=== PATIENT | male | born 1965 | race Caucasian/White ===

== ENCOUNTER 2023-08-31 11:35 | Emergency (ER) | payer BC, SELFPAY ==
[2023-08-31] VITALS (7 sets, daily range): BP systolic 120–151; BP diastolic 62–86; PULSE 95–117; RESP 18–24; TEMP 37.1–39.5; O2SAT 92–96; BMI 42.1
--- NOTE | 2023-08-31 | ECG_ITS ---
Test Reason : SOB Blood Pressure : / mmHG Vent. Rate : 102 BPM Atrial Rate : 102 BPM P-R Int : 176 ms QRS Dur : 100 ms QT Int : 326 ms P-R-T Axes : 026 017 005 degrees QTc Int : 424 ms Sinus tachycardia Otherwise normal ECG No previous ECGs available Referred By: Generic ED Physician Electronically Signed By:Robert Mckinney
--- NOTE | ~2023-08-31 | XR_ITS ---
EXAMINATION: XR CHEST CLINICAL INFORMATION: Shortness of breath. COMPARISON: None available. TECHNIQUE: Frontal view of the chest was obtained. FINDINGS: The cardiomediastinal silhouette is within normal limits. There are patchy bilateral mid and lower lung field infiltrates. There are no significant pleural effusions. The bony structures and soft tissues are unremarkable. XR/XR chest 1V IMPRESSION: Patchy bilateral mid and lower lung field infiltrates. Suspect pneumonia.
[2023-08-31 12:16] LABS: Basophils Percent Auto 0.2 % (0-2); Hematocrit 37.3 % (42.0-52.0); Hemoglobin 12.8 g/dl (14.0-18.0); Imm Gran Abs Auto 0.07 X10*3/uL (0.00-0.03); Imm Gran Pct Auto 0.5 % (0.0-0.4); Lymphocytes Absolute Auto 0.5 X10*3/uL (1.2-4.9); Lymphocytes Percent Auto 3.7 % (20-40); MANUAL DIFF FLAG SCAN; Mean Corpuscular HGB Conc 34.3 g/dl (31.0-36.0); Mean Corpuscular Hemoglobin 31.3 pg (27.0-33.0); Mean Corpuscular Volume 91.2 fL (80.0-98.0); Monocytes Absolute Auto 0.7 X10*3/uL (0.1-1.2); Monocytes Percent Auto 4.7 % (2-11); Neutrophils Absolute Auto 13.2 x10*3/uL (2.0-8.3); Neutrophils Percent Auto 90.9 % (45-73); Platelet Count 184 X10*3/uL (160-400); Red Blood Count 4.09 X10*6/uL (4.60-5.80); Red Cell Distribution Width 13.1 % (11.0-16.0); SCAN SMEAR FLAG 1; White Blood Count 14.6 X10*3/uL (4.8-10.8)
[2023-08-31] MEDS: Ibuprofen 400 MG TABLET PO (12:20)
[2023-08-31] MEDS: Benzonatate 100 MG CAPSULE 200 MG PO (12:20)
[2023-08-31] MEDS: Acetaminophen 325 MG TABLET 975 MG PO (12:20)
--- NOTE | 2023-08-31 12:22 | PC.NURSE ---
medication administered per provider order. RT bedside assessing pt.
[2023-08-31 12:28] LABS: Alanine Aminotransferase 41 U/L (0-40); Alkaline Phosphatase 73 U/L (39-117); Anion Gap 12 (12-20); Aspartate Amino Transferase 25 U/L (5-37); Bilirubin Total 0.8 mg/dL (0.0-1.0); Blood Urea Nitrogen 16 mg/dL (9-16); Calcium 8.8 mg/dL (8.4-10.2); Carbon Dioxide 24 mmol/L (22-29); Chloride 105 mmol/L (96-108); Creatinine Clr Calc Pharmacy 135.1; Estimated Glomerular Filt Rate > 60; Glucose Fasting 110 mg/dL (60-99); Potassium 3.4 mmol/L (3.3-5.1); Sodium 138 mmol/L (135-145); Total Protein 6.7 g/dL (6.5-8.0)
[2023-08-31 12:33] LABS: SLIDE REVIEW VERIFIED
[2023-08-31] MEDS: Albuterol Sulfate 90 MCG 8 GM INHALER 4 PUFF INHALE (12:37)
--- NOTE | 2023-08-31 12:48 | ED_ITS ---
HPI - SOB/Dyspnea General Chief Complaint: Upper Respiratory Symptoms Stated Complaint: +COVID, DIFF BREATHING,H/O ASTHMA PER EMS Time Seen by Provider: 08/31/23 11:45 Source: patient Mode of arrival: EMS History of Present Illness HPI Narrative: 58-year-old male with mild asthma and positive sick contacts for COVID-19 states that his primary care provider prescribed him steroids on Tuesday and for the 1st couple of days it helped but thereafter he states that the cough is just become impossible, he is been using his inhaler multiple times without success, steroids are no longer working but have been completed and he just had significant shortness of breath with the cough to the point that he felt like he was unable to catch his breath. Related Data Allergies Allergy/AdvReac Type Severity Reaction Status Date / Time No Known Allergies Allergy Verified 08/31/23 11:49 Review of Systems 2 Review of Systems: Pertinent positives and negatives as stated in HPI PMFSH Past Medical History Source: nursing notes reviewed Social History Social History Smoked in Last 30 Days: No Use of substances other than those prescribed or required for medical reasons: No Advance Directives: No Advance Directives Information Provided: Yes Physical Exam 2 Vital Signs: Vital Signs: Last Vital Signs Temp 101.2 F H 08/31/23 14:17 Pulse 102 H 08/31/23 14:17 Resp 18 08/31/23 14:17 BP 120/62 08/31/23 14:17 Pulse Ox 95 08/31/23 14:17 O2 Del Method Room Air 08/31/23 14:17 BMI result Body Mass Index 42.1 VITAL SIGNS: Reviewed. GENERAL: Well developed, well nourished, in no acute distress. HEAD: Normocephalic/atraumatic EYES: PERRLA, EOMI EARS: Ext canals without abnormality NOSE: Nares patent bilateral OROPHARYNX: no oral lesions noted, posterior pharynx clear NECK: Supple, no adenopathy LUNGS: Decreased breath sounds bilaterally with noted expiratory wheeze/rales at right base, tachypnea and increased work of breathing noted. SpO2<94> CARDIOVASCULAR: Regular rate and rhythm without noted murmurs ABDOMEN: Soft, non-tender, non-distended with bowel sounds. MUSCULOSKELETAL: No tenderness, deformities, or effusions noted on gross inspection. EXTREMITIES: No cyanosis, clubbing or edema. SKIN: Inspection of the skin reveals no rashes, ulcerations, jaundice, pallor, or petechiae. NEUROLOGIC: Alert and oriented x 4. Strength and sensation to light touch were grossly intact x 4. Medications Administered Discontinued Medications Generic Name Dose Route Start Last Admin Trade Name Osminq PRN Reason Stop Dose Admin Acetaminophen 975 mg 08/31/23 12:00 08/31/23 12:20 Acetaminophen 325 Mg Tablet PO 08/31/23 12:01 975 mg ONCE ONE Administration Albuterol Sulfate 4 puff 08/31/23 12:30 08/31/23 12:37 Albuterol Sulfate 90 Mcg 8 Gm Inhaler INHALE 08/31/23 12:31 4 puff ONCE ONE Administration Benzonatate 200 mg 08/31/23 12:00 08/31/23 12:20 Benzonatate 100 Mg Capsule PO 08/31/23 12:01 200 mg ONCE ONE Administration Guaifenesin/Codeine Phosphate 5 ml 08/31/23 12:45 08/31/23 13:11 Guaifen/Codeine Sf 200/20/10ml 10 Ml Liquid PO 08/31/23 12:46 5 ml ONCE ONE Administration Magnesium Sulfate 2 gm in 50 mls @ 150 mls/hr 08/31/23 12:51 08/31/23 13:35 Magnesium Sulfate/H2o IV 08/31/23 13:10 Infused ONCE ONE Infusion Ibuprofen 400 mg 08/31/23 12:00 08/31/23 12:20 Ibuprofen 400 Mg Tablet PO 08/31/23 12:01 400 mg ONCE ONE Administration Methylprednisolone Sodium Succinate 125 mg 08/31/23 12:51 08/31/23 13:11 Methylprednisolone Sod Succ 125 Mg/2 Ml Vial IVPUSH 08/31/23 12:52 125 mg ONCE ONE Administration Medical Decision Making Medical Decision Making MDM Narrative: 58-year-old male with history and clinical presentation, DDX: Viral syndrome/COVID-19 positive, will rule out concomitant viral infections of RSV in influenza. It is my opinion that this has also led to acute asthma exacerbation. INTERVENTION: E.d. bronch, steroids, magnesium, cough suppressant, patient noted to be febrile and this is secondary to viral infection and was treated with Tylenol/ibuprofen. I reviewed all investigations and although there is a noted leukocytosis this is likely a combination of non- infectious etiology with stress/steroid use. Otherwise, patient has a normocytic anemia but there is no history or clinical findings to suggest active bleeding, no thrombocytopenia. Chemistry indices do not demonstrate an PITER and there is no electrolyte or significant liver enzyme derangements. Viral testing only demonstrates COVID-19 and otherwise influenza/RSV are negative. Chest x-ray demonstrates patchy bilateral infiltrates that are consistent with COVID-19 pneumonia. D-dimer is not elevated. On re-evaluation patient is feeling much better, elevated temperature has resolved, he continues to oxygenating at 94-95% on room air. He is otherwise discharged home with expectant treatment and instructions for symptomatic treatment. Residual tachycardia secondary to nebulized treatments. Differential Diagnosis Differential Diagnoses: The differential diagnosis associated with the presentation includes Please see the discussion above Admission/Observation Consideration of admission/observation: Escalation of care including admission/observation considered Please see the discussion above Lab Data MDM Lab Attestation statement: I reviewed the patient's lab results. Please see the discussion above 08/31/23 12:09 08/31/23 12:09 Labs: Lab Results 08/31/23 08/31/23 08/31/23 Range/Units 12:09 12:55 14:46 WBC 14.6 H (4.8-10.8) X10*3/uL RBC 4.09 L (4.60-5.80) X10*6/uL Hgb 12.8 L (14.0-18.0) g/dl Hct 37.3 L (42.0-52.0) % MCV 91.2 (80.0-98.0) fL MCH 31.3 (27.0-33.0) pg MCHC 34.3 (31.0-36.0) g/dl RDW 13.1 (11.0-16.0) % Plt Count 184 (160-400) X10*3/uL MPV 10.0 (9.4-12.4) fL Immature Gran % (Auto) 0.5 H (0.0-0.4) % Neut % (Auto) 90.9 H (45-73) % Lymph % (Auto) 3.7 L (20-40) % Reeves % (Auto) 4.7 (2-11) % Eos % (Auto) 0.0 (0-4) % Baso % (Auto) 0.2 (0-2) % Lymph # (Auto) 0.5 L (1.2-4.9) X10*3/uL Reeves # (Auto) 0.7 (0.1-1.2) X10*3/uL Eos # (Auto) 0.0 (0.0-0.4) X10*3/uL Baso # (Auto) 0.0 (0.0-0.2) X10*3/uL Abs Immat Gran (auto) 0.07 H (0.00-0.03) X10*3/uL Absolute Neuts (auto) 13.2 H (2.0-8.3) x10*3/uL Absolute Nucleated RBC 0.000 (0.0-0.012) X10*3/uL Nucleated RBC % (auto) 0.0 (0.0-0.2) /100WBC Smear Tech's Comments VERIFIED D-Dimer High Sensitivty 179 NG/ML Sodium 138 (135-145) mmol/L Potassium 3.4 (3.3-5.1) mmol/L Chloride 105 (96-108) mmol/L Carbon Dioxide 24 (22-29) mmol/L Anion Gap 12 (12-20) BUN 16 (9-16) mg/dL Creatinine 0.76 (0.5-1.4) mg/dL Estim Creat Clear Calc 135.1 Estimated GFR > 60 Fasting Glucose 110 H (60-99) mg/dL Lactic Acid 0.7 (0.5-2.0) mmol/L Calcium 8.8 (8.4-10.2) mg/dL Total Bilirubin 0.8 (0.0-1.0) mg/dL AST 25 (5-37) U/L ALT 41 H (0-40) U/L Alkaline Phosphatase 73 (39-117) U/L B-Natriuretic Peptide 31 (<100) pg/mL Total Protein 6.7 (6.5-8.0) g/dL Albumin 4.0 (3.5-5.0) g/dL Influenza Type A (PCR) NEGATIVE (Negative) Influenza Type B (PCR) NEGATIVE (Negative) RSV RNA Qual (PCR) NEGATIVE (Negative) SARS-CoV-2 RNA (RT-PCR) POSITIVE A (Negative) Independent Interpretation I performed an independent interpretation of an: EKG Interpretation: Sinus tachycardia, HR-102, no STEMI, MS/QRS/QTC is within normal limits. Radiology Impression Discussion of test interpretation with radiology: I have reviewed the radiologist's reading. Radiologist Impression: Please see the discussion above Chronic Conditions Patient?s care impacted by: Other Asthma Critical Care Time Critical Care Time Critical Care Time: Yes Total Critical Care Time: 45 Attestation: I personally attest to this time spent taking care of the patient. Discharge Plan Discharge Clinical Impression: Viral syndrome, Asthma exacerbation, COVID-19 virus infection Patient Disposition: Home, Self-Care Instructions: Asthma (ED), Viral Syndrome (ED), COVID-19 (Coronavirus Disease 2019) (ED) Additional Instructions: Continue to isolate, continue to take Tylenol/ibuprofen as needed for body aches and temperatures, continue to drink plenty of fluids. Return to the ER for any worsening symptoms.
[2023-08-31 12:51] LABS: Influenza A PCR NEGATIVE (Negative); Influenza B PCR NEGATIVE (Negative); Resp Syncy Virus RNA Qual PCR NEGATIVE (Negative); SARS COV2 PCR INHOUSE POSITIVE (Negative)
[2023-08-31] MEDS: Magnesium Sulfate/H2O 2 GM/50 ML PIGGYBACK IV (13:11)
[2023-08-31] MEDS: methylPREDNISolone Sod Succ 125 MG/2 ML VIAL IVPUSH (13:11)
[2023-08-31] MEDS: guaiFEN/Codeine SF 200/20/10ML 10 ML LIQUID 5 ML PO (13:11)
[2023-08-31 13:13] LABS: Lactic Acid 0.7 mmol/L (0.5-2.0)
[2023-08-31 13:54] LABS: B Type Natriuretic Peptide 31 pg/mL (<100)
[2023-08-31 14:58] LABS: D Dimer High Sensitivity 179 NG/ML
== END 2023-08-31 16:22 | disposition home or self-care (01) ==
PROVIDERS: Emergency Provider Student in an Organized Health Care Education/Training Program
DX: U07.1 COVID-19 (principal); J45.901 Unspecified asthma with (acute) exacerbation; R06.02 Shortness of breath
CPT/HCPCS: 0241U; 36415; 71045; 80053; 83605; 83880; 85025; 85379; 87040; 93005; 94640; 94664; 96365; 96375; 99284; 99285; J2930; J3475

== ENCOUNTER → 2023-08-31 11:55 | Outpatient (BNV) | payer BC, SELFPAY | PROVIDERS: Emergency Provider Student in an Organized Health Care Education/Training Program; Visit Provider Internal Medicine Cardiovascular Disease | DX: R00.0 Tachycardia, unspecified (principal) | CPT/HCPCS: 93010 ==

== ENCOUNTER 2023-09-01 23:02 | Inpatient (IN) | payer BC, SELFPAY ==
--- NOTE | 2023-09-01 | ECG_ITS ---
Test Reason : CHEST PAIN Blood Pressure : / mmHG Vent. Rate : 114 BPM Atrial Rate : 114 BPM P-R Int : 172 ms QRS Dur : 096 ms QT Int : 296 ms P-R-T Axes : 036 034 -08 degrees QTc Int : 407 ms Sinus tachycardia Possible Left atrial enlargement Borderline ECG When compared with ECG of 31-AUG-2023 11:55, No significant change was found Referred By: Generic ED Physician Electronically Signed By:Robert Mckinney
--- NOTE | ~2023-09-01 | XR_ITS ---
EXAMINATION: XR CHEST CLINICAL INFORMATION: Dyspnea COMPARISON: Previous day TECHNIQUE: Frontal view of the chest was obtained. FINDINGS: Slightly increasing diffuse bilateral patchy airspace opacities bronchial wall thickening. No pleural effusion or pneumothorax. Normal heart size. Pulmonary venous congestion without overt edema. Acute osseous abnormalities. XR/XR chest 1V IMPRESSION: Slightly increasing diffuse bilateral patchy airspace opacities and bronchial wall thickening, most compatible with atypical/viral pneumonia
--- NOTE | ~2023-09-01 | XR_ITS ---
EXAMINATION: XR CHEST CLINICAL INFORMATION: Hypoxia. COMPARISON: Multiple priors, most recent CTA chest dated 09/03/2023. TECHNIQUE: Frontal view of the chest was obtained. FINDINGS: Diffuse, patchy bilateral airspace opacities as seen on the prior examinations. Findings appear slightly increased when compared to the radiographs dated 08/31/2023 and similar when compared to the most recent CT chest dated 09/03/2023. No pleural effusion or pneumothorax. Stable cardiomediastinal silhouette. No acute osseous abnormality. XR/XR chest 1V IMPRESSION: Diffuse, patchy bilateral airspace opacities, slightly increased when compared to the radiographs dated 08/31/2023 and similar when compared to the most recent CT chest dated 09/03/2023. Findings are consistent with the patient's known history of Covid pneumonia.
--- NOTE | ~2023-09-01 | CT_ITS ---
EXAMINATION: CT ANGIOGRAM OF THE CHEST WITH AND WITHOUT CONTRAST (CT PULMONARY ANGIOGRAM FOR PE) CLINICAL INFORMATION: Reason for Exam Acute hypoxia COVID 19 positive. COMPARISON: CTA of the chest done yesterday. TECHNIQUE: Prior to contrast administration, noncontrast localization images were obtained. Subsequently, multidetector volumetric imaging was performed from the thoracic inlet to below the diaphragms following the administration of 65 mL Omnipaque 350 intravenous contrast. No contrast reaction reported Sagittal, coronal, and MIP oblique sagittal reformatted images were obtained on the CT workstation, uploaded to PACS, and reviewed. This CT examination was performed using dose optimization techniques as appropriate, variously including the following: *Automated exposure control *Adjustment of mA and/or kV according to patient size (this includes techniques or standardized protocols for targeted exams where dose is matched to indication/reason for exam; i.e. extremities or head) *Use of iterative reconstruction technique Total exam dose-length product 508 mGy-cm FINDINGS: QUALITY OF STUDY/CONTRAST BOLUS: Satisfactory. PULMONARY ARTERIES: Similar to yesterday's study, evaluation is technically limited due to motion artifacts. No definite large central pulmonary thromboembolism. Evaluation of the lobar as well as segmental pulmonary arteries is technically limited, similar to prior study done yesterday. THORACIC AORTA: No aneurysm. LUNG: Extensive multilobar groundglass airspace disease is present bilaterally, shows interval progression since prior study, most consistent with clinically known COVID pneumonia. PLEURA: No pleural effusion or pneumothorax. MEDIASTINUM: Normal heart size. No pericardial effusion. No hilar or mediastinal lymphadenopathy. No evidence of septal bowing or right heart strain. CORONARY ARTERY CALCIFICATION: None visualized on this study. CHEST WALL/AXILLA: No axillary or internal mammary lymphadenopathy. OSSEOUS STRUCTURES: No acute or suspicious osseous abnormality. UPPER ABDOMEN: Reidentified hypodense circumscribed 2.5 cm right adrenal mass, not optimally characterized on this postcontrast study. No reflux of contrast into the hepatic veins to suggest elevated right heart pressures. CT/CT angio chest PE protocol IMPRESSION: 1. Interval progression of previously documented bilateral multilobar groundglass airspace opacities in this patient with clinically known COVID pneumonia since the CT of the chest done yesterday. 2. Evaluation for pulmonary thromboembolism is again technically limited due to motion artifacts. No evidence of any large central thromboembolism, unchanged. 3. 2.5 cm indeterminate well-circumscribed hypodense right adrenal mass. VTE: Negative.
--- NOTE | ~2023-09-01 | CT_ITS ---
EXAMINATION: CT ANGIOGRAM OF THE CHEST WITH AND WITHOUT CONTRAST (CT PULMONARY ANGIOGRAM FOR PE) CLINICAL INFORMATION: Reason for Exam VARMA; Tachycardia hypoxemia in setting of COVID-19 COMPARISON: None available. TECHNIQUE: Prior to contrast administration, noncontrast localization images were obtained. Subsequently, multidetector volumetric imaging was performed from the thoracic inlet to below the diaphragms following the administration of 65 mL Omnipaque 350 intravenous contrast. No contrast reaction reported Sagittal, coronal, and MIP oblique sagittal reformatted images were obtained on the CT workstation, uploaded to PACS, and reviewed. This CT examination was performed using dose optimization techniques as appropriate, variously including the following: *Automated exposure control *Adjustment of mA and/or kV according to patient size (this includes techniques or standardized protocols for targeted exams where dose is matched to indication/reason for exam; i.e. extremities or head) *Use of iterative reconstruction technique Total exam dose-length product 511 mGy-cm FINDINGS: QUALITY OF STUDY/CONTRAST BOLUS: Satisfactory. PULMONARY ARTERIES: Limited assessment, particularly of the lower lungs due to respiratory motion artifact. No pulmonary emboli. THORACIC AORTA: No aneurysm. LUNG: Bilateral peripherally predominant patchy groundglass opacities. PLEURA: No pleural effusion or pneumothorax. MEDIASTINUM: Normal heart size. No pericardial effusion. No hilar or mediastinal lymphadenopathy. Shotty mediastinal lymph nodes are reactive. No evidence of septal bowing or right heart strain. CORONARY ARTERY CALCIFICATION: None visualized on this study. CHEST WALL/AXILLA: No axillary or internal mammary lymphadenopathy. OSSEOUS STRUCTURES: No acute or suspicious osseous abnormality. UPPER ABDOMEN: There is a 2.3 x 1.9 cm right adrenal nodule measuring 13 Hounsfield units on this postcontrast image acquisition. Normal left adrenal gland. CT/CT angio chest PE protocol IMPRESSION: * No pulmonary embolism. * Bilateral peripherally predominant patchy groundglass opacities. This is a commonly reported imaging appearance for COVID-19, however other viral pneumonitides can also have this appearance. * Incidental 2.3 cm right adrenal nodule which measures 13 HU on this post-contrast exam. 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 VTE: negative.
--- NOTE | ~2023-09-01 | XR_ITS ---
EXAMINATION: XR CHEST CLINICAL INFORMATION: Shortness of breath COMPARISON: 09/08/2023 TECHNIQUE: Frontal view of the chest was obtained. FINDINGS: Heart size normal. Again noted are multiple focal airspace opacities throughout both lungs with some relative sparing of the apices. When compared to the prior study findings may be minimally worse. No pleural effusions. No evidence of CHF. Bony thorax is unremarkable. XR/XR chest 1V IMPRESSION: Multifocal airspace opacities, slightly worse when compared to the prior study.
[2023-09-01 23:04] VITALS: BP 154/85; PULSE 126; RESP 26; TEMP 38.8; O2SAT 95; BMI 35.9
[2023-09-01 23:49] VITALS: BP 145/84; PULSE 123; RESP 24; O2SAT 92
[2023-09-02] VITALS (14 sets, daily range): BP systolic 137–164; BP diastolic 77–94; PULSE 69–126; RESP 16–28; TEMP 36.4–37.6; O2SAT 87–98; BMI 39.2
--- NOTE | 2023-09-02 00:13 | ED.SOB ---
HPI - SOB/Dyspnea General Chief Complaint: Dyspnea Stated Complaint: chest pain , covid+ Time Seen by Provider: 09/02/23 00:00 Source: patient Mode of arrival: ambulatory Limitations: no limitations History of Present Illness HPI Narrative: Patient comes to the emergency room complaining of cough, chest pain from coughing. Patient was diagnosed with COVID approximately 1 week ago, patient states that he has a gradually getting worse, his breathing is more difficult. Patient was seen here yesterday, given nebulization treatments. Patient states that he was feeling better initially but morning he got home, the shortness of breath reoccurred. Related Data Allergies Allergy/AdvReac Type Severity Reaction Status Date / Time No Known Allergies Allergy Verified 09/01/23 23:08 Review of Systems Review of Systems: Constitutional : No Weight loss, No Fever, No Chills, No Night Sweats, No Fatigue, No Malaise ENT/Mouth : No Hearing loss, No Ear Pain, No Nasal Congestion, No Sinus Pain, No Hoarseness, No sore throat, No Rhinorrhea, No Swallowing Difficulty Eyes: No Eye Pain, No Swelling, No Redness, No Foreign Body, No Discharge, No Vision Changes Cardiovascular : No Chest Pain, No SOB, No Orthopnea, No Edema, No Palpitations Respiratory : Complaining of dry cough, complaining of wheezing, No Smoke Exposure, shortness of breath worthless with exertion Gastrointestinal : No Nausea, No Vomiting, No Diarrhea, No Constipation, No abdominal Pain, No Hematochezia, No Melena Genitourinary : no irregular bleeding, No Dysuria, No Urinary Frequency, No Hematuria, No Urinary Incontinence, No Urgency, No Flank Pain, No Urinary Flow Changes, No Hesitancy Musculoskeletal : No joint pain, No Myalgias, No Joint Swelling Skin : No Skin Lesions, No rash Neuro : No Weakness, No Numbness, No Paresthesias, No Loss of Consciousness, No Dizziness, No Headache Psych : No Anxiety/Panic, No Depression, No SI/HI/AH/VH, No Social Issues, Heme/Lymph: No Bruising, No Bleeding,No Lymphadenopathy Endocrine : No Polyuria, No Polydipsia, No Temperature Intolerance PMFSH Past Medical History Medical History (Updated 09/02/23 @ 01:36 by Silvia Contreras MD) Asthma Social History Social History Smoked in Last 30 Days: No Use of substances other than those prescribed or required for medical reasons: No Advance Directives: No Advance Directives Information Provided: Yes Physical Exam Vital Signs: Vital Signs: Last Vital Signs Temp 101.9 F H 09/01/23 23:04 Pulse 126 H 09/02/23 00:54 Resp 28 H 09/02/23 00:54 BP 145/84 H 09/01/23 23:49 Pulse Ox 88 L 09/02/23 00:13 O2 Del Method Nasal Cannula 09/01/23 23:49 O2 Flow Rate 3 09/01/23 23:49 BMI result Body Mass Index 35.9 Const: Other: Appearance: Alert. Oriented X3. Anxious Eyes: Pupils equal, round and reactive to light. ENT: Pharynx normal. Neck: Normal inspection. Neck supple. No lymph nodes noted. No crepitus CVS: Normal heart rate and rhythm. Pulses normal. Normal S1 and S2 Respiratory: Actively coughing, mildly tachypneic 24-26, no wheezing, normal air movement Abdomen: Soft and nontender. No rigidity. No distention. Skin: Skin warm and dry. Normal skin color. Normal skin turgor. Extremities: No lower extremity edema. No Lacerations. No Rash Neuro: Oriented X 3. No motor deficit. No sensory deficit. Moving all extremities. No slurred speech. CN 2 through 12 grossly intact Psych: calm, cooperative, anxious Course Course Course Narrative: -patient was walked around his room, oxygen saturation dropped to 88% -all of patient's labs and imaging pending -patient receiving IV fluids, IV Decadron and p.o. guaifenesin with codeine Medications Administered Discontinued Medications Generic Name Dose Route Start Last Admin Trade Name Freq PRN Reason Stop Dose Admin Dexamethasone Sodium Phosphate 6 mg 09/02/23 00:12 09/02/23 00:33 Dexamethasone Sod Phosphate 4 Mg/Ml Vial IVPUSH 09/02/23 00:13 6 mg ONCE ONE Administration Guaifenesin/Codeine Phosphate 10 ml 09/02/23 00:12 09/02/23 00:33 Guaifen/Codeine Sf 200/20/10ml 10 Ml Liquid PO 09/02/23 00:13 10 ml ONCE ONE Administration Sodium Chloride 1,000 mls @ 999 mls/hr 09/02/23 00:16 09/02/23 00:36 Ns IVCONT 09/02/23 01:16 999 mls/hr .Q1H1M ONE Administration Medical Decision Making Medical Decision Making [facility] Narrative: -my interpretation of labs: Patient's white blood cell count is elevated, 21, likely due to reactive leukocytosis versus pneumonia versus steroids. Lactic acid within normal limits. -patient's blood pressure elevated, patient tachycardic likely secondary to fever. Sepsis is not suspect -my interpretation of chest x-ray: Possible atypical pneumonia -patient was giving IV fluids, empirically treated with IV antibiotics, Decadron -patient's oxygen saturation dropped to 88% on room air, now in 2-3 L nasal cannula -I discussed the patient with Dr. Todd, pt being admitted Differential Diagnosis Differential Diagnoses: The differential diagnosis associated with the presentation includes (COVID, influenza, pneumonia) Admission/Observation Consideration of admission/observation: Escalation of care including admission/observation considered Consult Healthcare Provider Management of the patient was discussed with: Hospitalist Lab Data [facility] Lab Attestation statement: I reviewed the patient's lab results. 09/02/23 00:23 09/02/23 00:23 Labs: Lab Results 09/02/23 09/02/23 09/02/23 Range/Units 00:22 00:23 00:32 WBC 21.7 H (4.8-10.8) X10*3/uL RBC 4.14 L (4.60-5.80) X10*6/uL Hgb 12.9 L (14.0-18.0) g/dl Hct 38.4 L (42.0-52.0) % MCV 92.8 (80.0-98.0) fL MCH 31.2 (27.0-33.0) pg MCHC 33.6 (31.0-36.0) g/dl RDW 13.5 (11.0-16.0) % Plt Count 245 D (160-400) X10*3/uL MPV 10.4 (9.4-12.4) fL Immature Gran % (Auto) 0.9 H (0.0-0.4) % Neut % (Auto) 91.5 H (45-73) % Lymph % (Auto) 2.4 L (20-40) % [place] % (Auto) 5.1 (2-11) % Eos % (Auto) 0.0 (0-4) % Baso % (Auto) 0.1 (0-2) % Lymph # (Auto) 0.5 L (1.2-4.9) X10*3/uL [place] # (Auto) 1.1 (0.1-1.2) X10*3/uL Eos # (Auto) 0.0 (0.0-0.4) X10*3/uL Baso # (Auto) 0.0 (0.0-0.2) X10*3/uL Abs Immat Gran (auto) 0.20 H (0.00-0.03) X10*3/uL Absolute Neuts (auto) 19.8 H (2.0-8.3) x10*3/uL Absolute Nucleated RBC 0.000 (0.0-0.012) X10*3/uL Nucleated RBC % (auto) 0.0 (0.0-0.2) /100WBC Smear Tech's Comments VERIFIED PT 11.9 (11.1-13.3) SEC INR 1.0 (0.9-1.1) VBG pH 7.45 H (7.32-7.43) VBG pCO2 38 mmHg VBG pO2 60 mmHg VBG HCO3 27 H (22-26) mmol/L VBG O2 Saturation 89.0 % VBG Base Excess 3.5 mmol/L Sodium 138 (135-145) mmol/L Potassium 3.5 (3.3-5.1) mmol/L Chloride 104 (96-108) mmol/L Carbon Dioxide 25 (22-29) mmol/L Anion Gap 13 (12-20) BUN 25 H (9-16) mg/dL Creatinine 0.99 (0.5-1.4) mg/dL Estim Creat Clear Calc 101.3 Estimated GFR > 60 Random Glucose 131 H (60-115) mg/dL Lactic Acid 0.8 (0.5-2.0) mmol/L Calcium 9.3 (8.4-10.2) mg/dL Total Bilirubin 0.5 (0.0-1.0) mg/dL Direct Bilirubin 0.3 (0.0-0.5) mg/dL AST 52 H (5-37) U/L ALT 73 H (0-40) U/L Alkaline Phosphatase 95 (39-117) U/L Troponin I High Sens 13.3 (<3.5-35.0) ng/L B-Natriuretic Peptide 31 (<100) pg/mL Total Protein 7.2 (6.5-8.0) g/dL Albumin 4.1 (3.5-5.0) g/dL COVID-19 (ABDELRAHMAN) Positive A (Negative) COVID-19 Clin Com See Note Influenza Type A (GEOFF) Negative (Negative) Influenza Type B (GEOFF) Negative (Negative) Influenza A & B Note See Note Independent Interpretation I performed an independent interpretation of an: EKG (Interpretation of EKG: Sinus tachycardia, heart rate 114, nonspecific T-wave inversion in lead 3, no ST segment depression elevation, QTC 407) and Plain X-Ray Radiology Impression Discussion of test interpretation with radiology: I have reviewed the radiologist's reading. Radiologist Impression: FINDINGS: Slightly increasing diffuse bilateral patchy airspace opacities bronchial wall thickening. No pleural effusion or pneumothorax. Normal heart size. Pulmonary venous congestion without overt edema. Acute osseous abnormalities. XR/XR chest 1V IMPRESSION: Slightly increasing diffuse bilateral patchy airspace opacities and bronchial wall thickening, most compatible with atypical/viral pneumonia External Record Review External record reviewed: Prior outpatient labs Critical Care Time Critical Care Time Critical Care Time: Yes Total Critical Care Time: 75 Attestation: I have personally provided critical care time. Time includes review of lab data, radiology results, discussion with consultants, and monitoring for potential decompensation. Intervention performed as documented. Discharge Plan Discharge Clinical Impression: COVID-19 virus infection, Pneumonia Patient Disposition: Admitted As Inpatient
[2023-09-02] MEDS: guaiFEN/Codeine SF 200/20/10ML 10 ML LIQUID PO ×2 (00:33→06:52)
[2023-09-02] MEDS: dexAMETHasone sod phosphate 4 MG/ML VIAL 6 MG IVPUSH (00:33)
[2023-09-02 00:34] LABS: Basophils Percent Auto 0.1 % (0-2); Hematocrit 38.4 % (42.0-52.0); Hemoglobin 12.9 g/dl (14.0-18.0); Imm Gran Pct Auto 0.9 % (0.0-0.4); Lymphocytes Absolute Auto 0.5 X10*3/uL (1.2-4.9); Lymphocytes Percent Auto 2.4 % (20-40); MANUAL DIFF FLAG SCAN; Mean Corpuscular HGB Conc 33.6 g/dl (31.0-36.0); Mean Corpuscular Hemoglobin 31.2 pg (27.0-33.0); Mean Corpuscular Volume 92.8 fL (80.0-98.0); Mean Platelet Volume 10.4 fL (9.4-12.4); Monocytes Absolute Auto 1.1 X10*3/uL (0.1-1.2); Monocytes Percent Auto 5.1 % (2-11); Neutrophils Absolute Auto 19.8 x10*3/uL (2.0-8.3); Neutrophils Percent Auto 91.5 % (45-73); Platelet Count 245 X10*3/uL (160-400); Red Blood Count 4.14 X10*6/uL (4.60-5.80); Red Cell Distribution Width 13.5 % (11.0-16.0); SCAN SMEAR FLAG 1; White Blood Count 21.7 X10*3/uL (4.8-10.8)
[2023-09-02] MEDS: 0.9 % Sodium Chloride 1,000 ML 999 ML IVCONT (00:36)
[2023-09-02 00:38] LABS: Venous Blood Gas Refer to POC result
[2023-09-02 00:39] LABS: VBG Base Excess 3.5 mmol/L; VBG HCO3 27 mmol/L (22-26); VBG pCO2 38 mmHg; VBG pH 7.45 (7.32-7.43); VBG pO2 60 mmHg
[2023-09-02 00:43] LABS: Prothrombin Time 11.9 SEC (11.1-13.3)
[2023-09-02 00:43] LABS: COVID-19 Test Positive (Negative); IDNOW Serial# BCCEAD1C
[2023-09-02 00:45] LABS: Lactic Acid 0.8 mmol/L (0.5-2.0)
[2023-09-02 00:50] LABS: Alanine Aminotransferase 73 U/L (0-40); Albumin Level 4.1 g/dL (3.5-5.0); Alkaline Phosphatase 95 U/L (39-117); Anion Gap 13 (12-20); Aspartate Amino Transferase 52 U/L (5-37); Bilirubin Direct 0.3 mg/dL (0.0-0.5); Bilirubin Total 0.5 mg/dL (0.0-1.0); Blood Urea Nitrogen 25 mg/dL (9-16); Calcium 9.3 mg/dL (8.4-10.2); Carbon Dioxide 25 mmol/L (22-29); Chloride 104 mmol/L (96-108); Creatinine Clr Calc Pharmacy 101.3; Estimated Glomerular Filt Rate > 60; Glucose Random 131 mg/dL (60-115); Potassium 3.5 mmol/L (3.3-5.1); Sodium 138 mmol/L (135-145); Total Protein 7.2 g/dL (6.5-8.0)
--- NOTE | 2023-09-02 00:51 | PC.NURSE ---
pt came in from waiting room reporting dyspnea; previously covid+. pt reports worsening cough/sob hx asthma. sats 92% on RA upon arrival to room 2L NC o2 given sats up to 96%. ambulatory o2 trial with Dr. Contreras at bedside on RA sats 88-90%. pt reports cp with inspiration/cough. sinus tachy on monitor 126 bpm. afebrile. iv established. labs/nasal swabs done. pt medicated per nov. ivf infusing. iso precautions in place. call shrestha within reach.
[2023-09-02 00:54] LABS: SLIDE REVIEW VERIFIED
[2023-09-02 00:56] LABS: B Type Natriuretic Peptide 31 pg/mL (<100); IDNOW Serial# 08D9AD1C; Influenza A Negative (Negative); Influenza B2 Negative (Negative)
[2023-09-02 00:56] LABS: Troponin-I High Sensitivity 13.3 ng/L (<3.5-35.0)
[2023-09-02 01:50] LABS: D Dimer High Sensitivity 234 NG/ML
[2023-09-02] MEDS: cefTRIAXone sodium 1 GM in 0.9 % Sodium Chloride 50 ML IV (01:52)
[2023-09-02] MEDS: ondansetron HCL 4 MG/2 ML VIAL IVPUSH ×2 (01:52→20:55)
[2023-09-02 01:55] LABS: C Reactive Protein 27.04 mg/dL (< or = 0.50); Magnesium 2.2 mg/dL (1.6-2.6); Phosphorus 2.2 mg/dL (2.7-4.5)
[2023-09-02] MEDS: Azithromycin 500 MG in 0.9 % Sodium Chloride 250 ML 125 MG IV (02:42)
[2023-09-02] MEDS: iohexoL 350 MG/ML 100 ML INFUS..BTL 85 ML IV (03:34)
[2023-09-02] MEDS: Enoxaparin Sodium 40 MG/0.4 ML SYRINGE SUBCUT ×2 (03:44→20:11)
[2023-09-02] MEDS: methylPREDNISolone Sod Succ 40 MG/ML VIAL IVPUSH ×3 (03:44→20:10)
[2023-09-02 03:50] LABS: Appearance Urine Clear; Color Urine Yellow; Glucose Urine UA Negative (Negative); Leukocyte Esterase Urine Negative (Negative); Nitrite Urine Negative (Negative); Specific Gravity - Urine 1.025 (1.005-1.025); UMIC TRIGGER UACC YES; Urine Blood Moderate (2+) (Negative); Urine Ketones Negative (Negative); Urine Protein 100 (2+) mg/dL (Neg-Trace)
[2023-09-02 03:53] LABS: Bacteria Urine None Seen (None Seen); Hyaline Casts Urine 0-2 /LPF (0-2); Squamous Epithelial Cell Urine 0-2 /HPF (0-2); WBC Urine 0-5 /HPF (0-5)
--- NOTE | 2023-09-02 03:56 | PC.NURSE ---
afebrile. pt reports nausea had vomiting episode. pt relates to robitussin states benzonatate works better for his cough as well. Dr. Todd notified.
--- NOTE | 2023-09-02 04:04 | P.HPHOSP_ITS ---
History of Present Illness Date of Service: 09/02/23 Attending physician on admission: Edouard Todd Chief Complaint: Worsening shortness of breath, cough, fevers & chills x1 week Patient is a 58 year old obese (BMI 35.9) white male with underlying medical history of mild asthma and recent diagnosis of COVID-19 virus infection (he is vaccinated) presents to the emergency room complaining of worsening productive cough, chest pain, fevers, chills and shortness of breath that is worse with exertion. He was diagnosed with COVID-19 infection about a week ago at the onset of his symptoms and saw his PCP who prescribed 5 days of steroids that he completed with transient improvement in his condition. He was seen in the emergency room last night and was treated with steroids and albuterol updrafts with improvement in his condition and so was discharged home from the ER. However, his symptoms recurred today hence his decision to return for treatment. Initial work up in the ER tonight was notable for a very high WBC count at 21.7 (from 14.6 last night) and also a high CRP at 27. He has a normal procalcitonin at 0.39. HE was started on steroids, updrafts and antibiotics and admission was then requested for continued care. Review of Systems 2 Review of Systems: Yes all other systems are reviewed and are negative [facility] Medical History (Updated 09/02/23 @ 04:55 by Edouard Todd MD) Asthma Functional capacity: independent ambulation Pertinent family history: Reviewed with patient and not pertinent to this admission. Social History Patient Tobacco Use Status: Former Tobacco user Smoked in Last 30 Days: No Use of substances other than those prescribed or required for medical reasons: No Advance Directives: No Advance Directives Information Provided: Yes Nutrition Risks: No Nutritional Risk Meds Allergies Allergy/AdvReac Type Severity Reaction Status Date / Time No Known Allergies Allergy Verified 09/01/23 23:08 Home Medications Medication Instructions Recorded Confirmed Last Taken Type No Known Home Meds 09/02/23 09/02/23 Unknown History Physical Exam 2 Vital Signs and Narrative: Vital Signs: Last Vital Signs Temp 98.7 F 09/02/23 03:40 Pulse 110 H 09/02/23 03:40 Resp 28 H 09/02/23 03:40 BP 152/90 H 09/02/23 03:40 Pulse Ox 92 09/02/23 03:40 O2 Del Method Nasal Cannula 09/02/23 03:40 O2 Flow Rate 3 09/02/23 03:40 BMI result Body Mass Index 35.9 General: Obese Wm in bed. Awake and alert. In no apparent distress Eyes: No pallor or jaundice. PERRLA, EOMI HENT: Moist oral mucus membranes. No oropharyngeal lesions. Neck: Supple. No cervical adenopathy. No JVD Cardiovascular: Tachycardic but regular rate and rhythm. Normal heart sounds. No murmurs, rubs or gallops. No JVD. No peripheral edema. Respiratory: Normal respiratory effort with no accessory muscle use. CTAB. , CTA bilaterally Gastrointestinal: Abdomen is soft, non-tender, non-distended. Normoactive bowel sounds. No hepatosplenomegaly Extremities: No edema. No calf tenderness. Good peripheral pulses Skin: Warm/Dry. No rashes. No mottling. Capillary refill is < 2 seconds Neurological: AAOx4. Intact speech & cognition. Normal gait & balance. CN II - XII grossly intact but not individually tested. No motor or sensory deficits Hematologic: No bleeding. No ecchymosis. No swollen or tender lymph nodes. Psychiatric: Cooperative. Appropriate mood and affect . Results Labs 09/02/23 00:23 09/02/23 00:23 Labs: Laboratory Results - last 24 hr 09/02/23 09/02/23 09/02/23 00:22 00:23 00:32 MCV 92.8 MCH 31.2 MCHC 33.6 RDW 13.5 Plt Count 245 D MPV 10.4 Immature Gran % (Auto) 0.9 H Neut % (Auto) 91.5 H Lymph % (Auto) 2.4 L [place] % (Auto) 5.1 Eos % (Auto) 0.0 Baso % (Auto) 0.1 Lymph # (Auto) 0.5 L [place] # (Auto) 1.1 Eos # (Auto) 0.0 Baso # (Auto) 0.0 Abs Immat Gran (auto) 0.20 H Absolute Neuts (auto) 19.8 H Absolute Nucleated RBC 0.000 Nucleated RBC % (auto) 0.0 Smear Tech's Comments VERIFIED PT 11.9 INR 1.0 D-Dimer High Sensitivty 234 VBG pH 7.45 H VBG pCO2 38 VBG pO2 60 VBG HCO3 27 H VBG O2 Saturation 89.0 VBG Base Excess 3.5 Anion Gap 13 Estim Creat Clear Calc 101.3 Estimated GFR > 60 Random Glucose 131 H Lactic Acid 0.8 Calcium 9.3 Phosphorus 2.2 L Magnesium 2.2 Total Bilirubin 0.5 Direct Bilirubin 0.3 AST 52 H ALT 73 H Alkaline Phosphatase 95 C-Reactive Protein 27.04 H B-Natriuretic Peptide 31 Total Protein 7.2 Albumin 4.1 Urine Color Urine Appearance Urine pH Ur Specific [place] Urine Protein Urine Glucose (UA) Urine Ketones Urine Blood Urine Nitrite Ur Leukocyte Esterase Urine RBC Urine WBC Ur Squamous Epith Cells Urine Bacteria Hyaline Casts COVID-19 (ABDELRAHMAN) Positive A COVID-19 Clin Com See Note Influenza Type A (GEOFF) Negative Influenza Type B (GEOFF) Negative Influenza A & B Note See Note 09/02/23 03:42 MCV MCH MCHC RDW Plt Count MPV Immature Gran % (Auto) Neut % (Auto) Lymph % (Auto) [place] % (Auto) Eos % (Auto) Baso % (Auto) Lymph # (Auto) [place] # (Auto) Eos # (Auto) Baso # (Auto) Abs Immat Gran (auto) Absolute Neuts (auto) Absolute Nucleated RBC Nucleated RBC % (auto) Smear Tech's Comments PT INR D-Dimer High Sensitivty VBG pH VBG pCO2 VBG pO2 VBG HCO3 VBG O2 Saturation VBG Base Excess Anion Gap Estim Creat Clear Calc Estimated GFR Random Glucose Lactic Acid Calcium Phosphorus Magnesium Total Bilirubin Direct Bilirubin AST ALT Alkaline Phosphatase C-Reactive Protein B-Natriuretic Peptide Total Protein Albumin Urine Color Yellow Urine Appearance Clear Urine pH 6.0 Ur Specific [place] 1.025 Urine Protein 100 (2+) H Urine Glucose (UA) Negative Urine Ketones Negative Urine Blood Moderate (2+) H Urine Nitrite Negative Ur Leukocyte Esterase Negative Urine RBC 11-20 H Urine WBC 0-5 Ur Squamous Epith Cells 0-2 Urine Bacteria None Seen Hyaline Casts 0-2 COVID-19 (ABDELRAHMAN) COVID-19 Clin Com Influenza Type A (GEOFF) Influenza Type B (GEOFF) Influenza A & B Note ECG ECG interpretation date: 09/02/23 ECG interpretation time: 04:52 Prior ECG tracings: available for review Interpretation: Sinus tachycardia at 114 bpm with normal intervals and no acute ischemic changes. Imaging Radiologist's Impressions: Impressions Chest X-Ray 09/01/23 23:21 IMPRESSION: Slightly increasing diffuse bilateral patchy airspace opacities and bronchial wall thickening, most compatible with atypical/viral pneumonia Assessment and Plan (1) Acute respiratory failure with hypoxia: Status: Acute (2) Viral pneumonia: Status: Acute (3) Sepsis due to COVID-19: Status: Acute (4) Obesity (BMI 35.0-39.9 without comorbidity): Status: Acute (5) Acute asthma exacerbation: Status: Acute Plan 58 year old obese (BMI 35.9) white male with underlying medical history of mild asthma and recent diagnosis of COVID-19 virus infection here with 1. Acute respiratory failure with hypoxemia - initial SpO2 in room air was 88% - likely 2/2 asthma exacerbation due to COVID-19 infection and underlying viral pneumonia - improved with supplemental Oxygen - admit and continue steroids, duo nebs and PRN Albuterol updrafts - consider short course of Remdesivir if he dose not show clinical improvement 2. Sepsis - due to COVID-19 virus infection' - doubt bacterial super-infection especially with a normal Procalcitonin. - hemodynamically stable so no fluids administered. - hold off antibiotics and continue with steroids - consider a short course of Remdesivir 3. Acute asthma exacerbation - 2/2 COVID-19 infection - treat as above with steroids, Duo Nebs and PRN Albuterol - monitor peak flow 4. COVID-19 infection - initial diagnosis was more that a week ago - unfortunately now with respiratory compromise - continue to treat as above - consider short course of Remdesivir if he does not show clinical improvement. 5. Obesity - BMI of 35.9 - encourage weight loss Total time managing care of this patient today: 75 minutes. Quality Stroke Does the patient have a stroke diagnosis?: No VTE Prior VTE?: No VTE Risk Level:: Medical - moderate - high VTE Device Contraindication: N/A - Device Ordered VTE Drug Contraindication: N/A - Med Ordered
[2023-09-02 04:13] LABS: Procalcitonin 0.39 ng/mL
[2023-09-02] MEDS: Prochlorperazine Edisylate 10 MG/2 ML VIAL IVPUSH (04:30)
[2023-09-02] MEDS: Benzonatate 100 MG CAPSULE 200 MG PO ×4 (04:30→20:11)
--- NOTE | 2023-09-02 06:08 | PC.NURSE ---
provider aware of slight elevation to trop. no further orders at this time.
--- NOTE | 2023-09-02 07:02 | PHA.MEDREC ---
Pharmacy Consult ? Medication Reconciliation Pharmacy has reviewed the medication reconciliation.
[2023-09-02] MEDS: Potassium Phosphate/NS 15 MMOL/250 ML PLAST..BAG 62.5 MMOL IV (07:34)
[2023-09-02] MEDS: Albuterol/Iprat 2.5/0.5MG 3 ML AMPUL.NEB INHALE ×3 (08:05→20:29)
--- NOTE | 2023-09-02 09:17 | MHC.CM.PN ---
Pt lives with his , he is independent, and does not have any home health services or med equipment. Pt is using supplemental O2 here, he does not use supplemental O2 at home. He has not used [facility] or been to [facility] before. He has a HCP, his , Bree Victoria. His or son can provide transportation upon DC. PCP is Yolanda Bender with [facility]. CM to follow and assist with DC planning.
[2023-09-02] MEDS: Ascorbic Acid 500 MG TABLET PO (09:30)
[2023-09-02] MEDS: Docusate Sodium 100 MG CAPSULE PO ×2 (09:30→20:11)
--- NOTE | 2023-09-02 14:55 | PM.EVENT ---
Event Note Date of Service: 09/02/23 Event Note: 58 year old obese (BMI 35.9) white male with underlying medical history of mild asthma and recent diagnosis of COVID-19 virus infection here with shortness of breath productive cough, fevers, chills, patient recently diagnosed to have COVID infection 1 week ago finished 5 day course of steroids given by PCP with transient improvement in symptoms in the ED noted to have a WBC count of 21,000 CRP 27 normal procalcitonin 0.3 night imaging study suggestive of COVID infection. Today patient is feeling better with less shortness of breath and cough exam general awake alert x3 in no acute distress lungs no wheeze, coarse breath sounds 1. Acute respiratory failure with hypoxemia - initial SpO2 in room air was 88% - likely 2/2 asthma exacerbation due to COVID-19 infection and underlying viral pneumonia - improved with supplemental Oxygen - admit and continue steroids, duo nebs and PRN Albuterol updrafts - consider short course of Remdesivir if he dose not show clinical improvement 2. Sepsis due to COVID-19 virus infection' - doubt bacterial super-infection especially with a normal Procalcitonin. - hemodynamically stable so no fluids administered. - hold off antibiotics , continue IV steroids 3. Acute asthma exacerbation - 2/2 COVID-19 infection - treat as above with steroids, Duo Nebs and PRN Albuterol 4. Obesity - BMI of 35.9 - encourage weight loss patient need continued inpatient hospitalization due to COVID related sepsis and hypoxia requiring O2 support and IV steroids. Patient not on any home medications. Time Spent With Patient Time: Total time managing care of this patient today ____ minutes.
[2023-09-02] MEDS: 0.9 % Sodium Chloride Flush 3 ML SYRINGE IVFLUSH ×2 (15:45→20:12)
[2023-09-02] MEDS: vancomycin/NS 2,000 MG/500 ML PLAST..BAG 250 MG IV (20:11)
[2023-09-03] VITALS (8 sets, daily range): BP systolic 140–166; BP diastolic 85–102; PULSE 88–105; RESP 18–24; TEMP 36.2–37.1; O2SAT 85–93
[2023-09-03] MEDS: methylPREDNISolone Sod Succ 40 MG/ML VIAL IVPUSH ×3 (03:30→17:37)
[2023-09-03] MEDS: guaiFEN/Codeine SF 200/20/10ML 10 ML LIQUID PO (03:30)
[2023-09-03 07:39] LABS: Basophils Percent Auto 0.1 % (0-2); Hematocrit 37.7 % (42.0-52.0); Hemoglobin 12.9 g/dl (14.0-18.0); Imm Gran Abs Auto 0.34 X10*3/uL (0.00-0.03); Imm Gran Pct Auto 1.5 % (0.0-0.4); Lymphocytes Absolute Auto 0.5 X10*3/uL (1.2-4.9); Lymphocytes Percent Auto 2.2 % (20-40); MANUAL DIFF FLAG SCAN; Mean Corpuscular HGB Conc 34.2 g/dl (31.0-36.0); Mean Corpuscular Hemoglobin 31.9 pg (27.0-33.0); Mean Corpuscular Volume 93.3 fL (80.0-98.0); Mean Platelet Volume 10.7 fL (9.4-12.4); Monocytes Percent Auto 4.3 % (2-11); Neutrophils Absolute Auto 21.4 x10*3/uL (2.0-8.3); Neutrophils Percent Auto 91.9 % (45-73); Platelet Count 284 X10*3/uL (160-400); Red Blood Count 4.04 X10*6/uL (4.60-5.80); Red Cell Distribution Width 13.9 % (11.0-16.0); SCAN SMEAR FLAG 1; White Blood Count 23.3 X10*3/uL (4.8-10.8)
[2023-09-03] MEDS: ondansetron HCL 4 MG/2 ML VIAL IVPUSH (07:49)
[2023-09-03] MEDS: 0.9 % Sodium Chloride Flush 3 ML SYRINGE IVFLUSH ×3 (07:49→21:11)
[2023-09-03] MEDS: vancomycin HCL 1,500 MG in 0.9 % Sodium Chloride 500 ML 333.33 MG IV (07:49)
[2023-09-03] MEDS: Benzonatate 100 MG CAPSULE 200 MG PO ×3 (07:49→21:11)
[2023-09-03] MEDS: Docusate Sodium 100 MG CAPSULE PO ×2 (07:49→21:11)
[2023-09-03] MEDS: Ascorbic Acid 500 MG TABLET PO (07:49)
[2023-09-03 07:56] LABS: Alanine Aminotransferase 57 U/L (0-40); Albumin Level 3.8 g/dL (3.5-5.0); Alkaline Phosphatase 81 U/L (39-117); Anion Gap 14 (12-20); Aspartate Amino Transferase 23 U/L (5-37); Bilirubin Total 0.5 mg/dL (0.0-1.0); Blood Urea Nitrogen 20 mg/dL (9-16); Calcium 9.1 mg/dL (8.4-10.2); Carbon Dioxide 25 mmol/L (22-29); Chloride 105 mmol/L (96-108); Creatinine Clr Calc Pharmacy 141.9; Estimated Glomerular Filt Rate > 60; Glucose Random 168 mg/dL (60-115); Magnesium 2.5 mg/dL (1.6-2.6); Potassium 4.1 mmol/L (3.3-5.1); Sodium 140 mmol/L (135-145)
[2023-09-03 08:13] LABS: SLIDE REVIEW VERIFIED
[2023-09-03] MEDS: Albuterol/Iprat 2.5/0.5MG 3 ML AMPUL.NEB INHALE ×3 (08:17→19:59)
--- NOTE | 2023-09-03 13:22 | P.PNIM_ITS ---
Subjective Subjective Date of Service: 09/03/23 Interval History: feeling better this morning complaining of cough with productive cough, denies fever, no chills, denies any skin lesions, no headache, no dizziness, no nausea, no vomiting, no abdominal pain or diarrhea no other acute issues overnight. Review of Systems All other system reviewed and negative Physical Exam 2 Vital Signs: Vital Signs: Last Vital Signs Temp 98.6 F 09/03/23 11:17 Pulse 92 09/03/23 11:17 Resp 20 09/03/23 11:17 BP 145/86 H 09/03/23 11:17 Pulse Ox 93 09/03/23 11:17 O2 Del Method Nasal Cannula 09/03/23 11:17 O2 Flow Rate 3 09/03/23 11:17 BMI result Body Mass Index 39.2 Const: Other: General awake alert x3, resting comfortably in no acute distress. Neck no JVD. CVS regular rate rhythm, Respiratory lungs coarse breath sound, no respiratory distress, no wheeze, no rhonchi. Gastrointestinal abdomen soft, non tender, bowel sounds audible, no guarding , no rigidity. Extremities no edema. Neuro non focal Skin no rash psych appropriate affect Objective Data Active Medications Acetaminophen (Acetaminophen 325 Mg Tablet) 650 mg PO Q6H PRN PRN Reason: Pain, Mild (Pain Scale 1-3) Al Hydroxide/Mg Hydroxide (Magnesium Hydrox/Alum Hydrox 30 Ml Oral.Susp) 30 ml PO Q4H PRN PRN Reason: Heartburn/Nausea Albuterol Sulfate (Albuterol Sulfate (0.083%) 2.5 Mg/3 Ml Vial.Neb) 2.5 mg INHALE Q4H PRN PRN Reason: Shortness of Breath/Wheezing Albuterol/Ipratropium (Albuterol/Iprat 2.5/0.5mg 3 Ml Ampul.Neb) 3 ml INHALE RQ6H WHILE AWAKE [facility] Last Admin: 09/03/23 08:17 Dose: 3 ml Documented By: JOHN Ascorbic Acid (Ascorbic Acid 500 Mg Tablet) 500 mg PO DAILY [facility] Last Admin: 09/03/23 07:49 Dose: 500 mg Documented By: EM Benzonatate (Benzonatate 100 Mg Capsule) 200 mg PO TID [facility] Last Admin: 09/03/23 07:49 Dose: 200 mg Documented By: EM Docusate Sodium (Docusate Sodium 100 Mg Capsule) 100 mg PO BID [facility] Last Admin: 09/03/23 07:49 Dose: 100 mg Documented By: EM Enoxaparin Sodium (Enoxaparin Sodium 40 Mg/0.4 Ml Syringe) 40 mg SUBCUT BEDTIME [facility] Last Admin: 09/02/23 20:11 Dose: 40 mg Documented By: BRENDAN Guaifenesin/Codeine Phosphate (Guaifen/Codeine Sf 200/20/10ml 10 Ml Liquid) 10 ml PO Q6H PRN PRN Reason: Cough Last Admin: 09/03/23 03:30 Dose: 10 ml Documented By: BRENDAN Vancomycin HCl 1,500 mg/ (Sodium Chloride) 500 mls @ 333.333 mls/hr IV Q12H [facility] Last Infusion: 09/03/23 09:29 Dose: Infused Documented By: EM Melatonin (Melatonin 3 Mg Tablet) 6 mg PO BEDTIME PRN PRN Reason: Insomnia Methylprednisolone Sodium Succinate (Methylprednisolone Sod Succ 40 Mg/Ml Vial) 40 mg IVPUSH Q8H [facility] Last Admin: 09/03/23 12:33 Dose: 40 mg Documented By: EM Ondansetron HCl (Ondansetron Hcl 4 Mg/2 Ml Vial) 4 mg IVPUSH Q8H PRN PRN Reason: Nausea and Vomiting Last Admin: 09/03/23 07:49 Dose: 4 mg Documented By: EM Sodium Chloride (0.9 % Sodium Chloride Flush 3 Ml Syringe) 3 ml IVFLUSH QSHIFT [facility] Last Admin: 09/03/23 07:49 Dose: 3 ml Documented By: EM Labs 09/03/23 07:12 09/03/23 07:12 Labs: Laboratory Results - last 24 hr 09/03/23 07:12 MCV 93.3 MCH 31.9 MCHC 34.2 RDW 13.9 Plt Count 284 MPV 10.7 Immature Gran % (Auto) 1.5 H Neut % (Auto) 91.9 H Lymph % (Auto) 2.2 L [place] % (Auto) 4.3 Eos % (Auto) 0.0 Baso % (Auto) 0.1 Lymph # (Auto) 0.5 L [place] # (Auto) 1.0 Eos # (Auto) 0.0 Baso # (Auto) 0.0 Abs Immat Gran (auto) 0.34 H Absolute Neuts (auto) 21.4 H Absolute Nucleated RBC 0.000 Nucleated RBC % (auto) 0.0 Smear Tech's Comments VERIFIED Anion Gap 14 Estim Creat Clear Calc 141.9 Estimated GFR > 60 Random Glucose 168 H Calcium 9.1 Magnesium 2.5 Total Bilirubin 0.5 AST 23 ALT 57 H Alkaline Phosphatase 81 Total Protein 7.0 Albumin 3.8 Microbiology Microbiology Results: Microbiology 09/02/23 00:21 Blood Culture - Preliminary Blood - Venous Staphylococcus species 09/02/23 00:22 Blood Culture - Preliminary Blood - Venous No growth after 24 hours. Assessment and Plan (1) Acute asthma exacerbation: Status: Acute (2) Obesity (BMI 35.0-39.9 without comorbidity): Status: Acute (3) Sepsis due to COVID-19: Status: Acute (4) Acute respiratory failure with hypoxia: Status: Acute (5) Bacteremia: Status: Acute Plan 1. Acute respiratory failure with hypoxemia - initial SpO2 in room air was 88% - likely 2/2 asthma exacerbation due to COVID-19 infection and underlying viral pneumonia - wean O2 not on home oxygen - continue iv steroids, duo nebs and PRN Albuterol updrafts today and transition to by mouth prednisone at am 2. Sepsis due to COVID-19 virus infection'and 1/2 bottle of blood culture positive for Gram-positive cocci in clusters - started on IV vancomycin follow blood culture report patient clinically stable 3. Acute asthma exacerbation - 2/2 COVID-19 infection - treat as above with steroids, Duo Nebs and PRN Albuterol 4. Obesity - BMI of 35.9 - encourage weight loss patient need continued inpatient hospitalization due to COVID related sepsis and hypoxia requiring O2 support and IV steroids and on IV vancomycin for bacteremia. Quality Stroke Does the patient have a stroke diagnosis?: No VTE Prior VTE?: No VTE Risk Level:: Medical - moderate - high VTE Device Contraindication: N/A - Device Ordered VTE Drug Contraindication: N/A - Med Ordered
[2023-09-03 18:58] LABS: D Dimer High Sensitivity 208 NG/ML
[2023-09-03] MEDS: Enoxaparin Sodium 40 MG/0.4 ML SYRINGE SUBCUT (21:11)
[2023-09-03] MEDS: LORazepam 2 MG/ML VIAL 1 MG IVPUSH (21:50)
[2023-09-03] MEDS: iohexoL 350 MG/ML 100 ML INFUS..BTL 65 ML IV (22:22)
[2023-09-03] MEDS: vancomycin HCL 1,000 MG in 0.9 % Sodium Chloride 250 ML 270 MG IV (23:52)
[2023-09-04] VITALS (15 sets, daily range): BP systolic 123–153; BP diastolic 72–93; PULSE 74–111; RESP 17–26; TEMP 36.1–37.2; O2SAT 86–98
[2023-09-04] MEDS: methylPREDNISolone Sod Succ 40 MG/ML VIAL IVPUSH ×3 (03:49→19:50)
[2023-09-04] MEDS: Albuterol Sulfate (0.083%) 2.5 MG/3 ML VIAL.NEB INHALE (04:04)
[2023-09-04] MEDS: ondansetron HCL 4 MG/2 ML VIAL IVPUSH (04:15)
[2023-09-04] MEDS: Furosemide 40 MG/4 ML VIAL IVPUSH (04:56)
[2023-09-04 05:17] LABS: ABG Base Excess 4.4 mmol/L; ABG HCO3 28 mmol/L (22-26); ABG pCO2 41 mmHg (32-45); ABG pH 7.45 (7.35-7.45); ABG pO2 67 mmHg (83-108)
--- NOTE | 2023-09-04 05:36 | PM.EVENT ---
Documented by User: Carolina Dan NP 09/04/23 05:49 Event Note Date of Service: 09/04/23 Event Note: The patient is a 58-year-old male with a past medical history of asthma, and recent COVID-19 infection who was admitted to Hospital Medicine on 09/02/23 for acute respiratory failure with hypoxemia due to COVID pneumonia and asthma exacerbation ?Tonight,? patient 02 requirement increasing.? On my assessment, not on severe resp distress, Alert and oriented x 3, satting 87-89% on oxymask, able to speak clearly?without multiple breaks.? He was tachypneic?to high 20s and tachycardic 110.? BP stable. Patient also? reporting? underlying history of anxiety.?Patient refusing high flow. At this point patient does not meet criteria for ICU ? Recommend:? Lasix? Opiates? for relief of dyspnea ?If patient?s condition worsens, please contact the ICU? Time Spent With Patient Time: Total time managing care of this patient today ____ minutes. Documented by User: Dell Edgar MD 09/04/23 15:26 Event Note Date of Service: 09/04/23
[2023-09-04 05:37] LABS: ABG Refer to POC result
[2023-09-04] MEDS: vancomycin HCL 1,000 MG in 0.9 % Sodium Chloride 250 ML 270 MG IV ×2 (06:38→14:42)
[2023-09-04] MEDS: Albuterol/Iprat 2.5/0.5MG 3 ML AMPUL.NEB INHALE ×3 (07:52→18:51)
[2023-09-04] MEDS: Enoxaparin Sodium 40 MG/0.4 ML SYRINGE SUBCUT ×2 (08:03→21:27)
[2023-09-04] MEDS: Benzonatate 100 MG CAPSULE 200 MG PO (08:05)
[2023-09-04] MEDS: 0.9 % Sodium Chloride Flush 3 ML SYRINGE IVFLUSH ×2 (08:05→16:41)
[2023-09-04] MEDS: Sodium,Potassium Phosphates POWD.PACK 1 PACKET PO ×2 (08:05→21:27)
[2023-09-04] MEDS: Ascorbic Acid 500 MG TABLET PO (08:06)
[2023-09-04] MEDS: Zinc Sulfate 220 MG CAPSULE PO ×2 (08:06→21:27)
[2023-09-04] MEDS: Piperacillin Sodium/Tazobactam 4.5 GM in 0.9 % Sodium Chloride 100 ML IV ×3 (08:06→19:50)
[2023-09-04] MEDS: Omeprazole 20 MG CAPSULE.DR PO (08:06)
[2023-09-04] MEDS: Docusate Sodium 100 MG CAPSULE PO (08:06)
[2023-09-04 08:40] LABS: Hematocrit 40.4 % (42.0-52.0); Hemoglobin 13.5 g/dl (14.0-18.0); Mean Corpuscular HGB Conc 33.4 g/dl (31.0-36.0); Mean Corpuscular Hemoglobin 31.3 pg (27.0-33.0); Mean Corpuscular Volume 93.5 fL (80.0-98.0); Mean Platelet Volume 10.3 fL (9.4-12.4); Platelet Count 331 X10*3/uL (160-400); Red Blood Count 4.32 X10*6/uL (4.60-5.80); White Blood Count 24.7 X10*3/uL (4.8-10.8)
[2023-09-04 08:49] LABS: Anion Gap 17 (12-20); Blood Urea Nitrogen 22 mg/dL (9-16); Calcium 9.4 mg/dL (8.4-10.2); Carbon Dioxide 27 mmol/L (22-29); Chloride 101 mmol/L (96-108); Estimated Glomerular Filt Rate > 60; Glucose Random 147 mg/dL (60-115); Sodium 141 mmol/L (135-145)
[2023-09-04] MEDS: guaiFENesin LA 600 MG TAB.ER.12H PO ×2 (10:31→21:29)
[2023-09-04 12:50] LABS: MRSA Nasal PCR NEGATIVE (Negative); SA Nasal PCR NEGATIVE (Negative)
--- NOTE | 2023-09-04 14:21 | HO.PM.IMPN ---
Subjective Subjective Date of Service: 09/04/23 Interval History: patient noted to be hypoxic since yesterday evening placed on OxyMask 15 L D-dimer 208 , CTA chest showed no PE but showed worsening of bilateral multilobar ground-glass airspace opacities, patient denies fever chills complaining of chest congestion, no chest pain ,no tightness, noted to be sweating this morning, fingers Fran oximetry noted to be 87 88% on 15 L OxyMask this morning. tolerating diet no nausea, no vomiting, no abdominal pain, no prior history of intubation patient feels scared. Review of Systems all other system reviewed and negative. Physical Exam Vital Signs: Vital Signs: Last Vital Signs Temp 97.3 F 09/04/23 11:13 Pulse 92 09/04/23 11:13 Resp 20 09/04/23 11:16 BP 123/80 09/04/23 11:13 Pulse Ox 97 09/04/23 11:13 O2 Del Method High Flow Nasal C annula 09/04/23 11:13 O2 Flow Rate 40 09/04/23 11:13 FiO2 100 09/04/23 11:13 BMI result Body Mass Index 39.2 Const: Other: General awake alert x3, mild tachypnea, in no acute distress. Neck no JVD. CVS regular rate rhythm, mild tachycardia heart rate 105 Respiratory lungs coarse breath sound, no respiratory distress, no wheeze, no rhonchi. Gastrointestinal abdomen soft, non tender, bowel sounds audible, no guarding , no rigidity. Extremities no edema. Neuro non focal Skin no rash psych appropriate affect Objective Data Active Medications Acetaminophen (Acetaminophen 325 Mg Tablet) 650 mg PO Q6H PRN PRN Reason: Pain, Mild (Pain Scale 1-3) Al Hydroxide/Mg Hydroxide (Magnesium Hydrox/Alum Hydrox 30 Ml Oral.Susp) 30 ml PO Q4H PRN PRN Reason: Heartburn/Nausea Albuterol Sulfate (Albuterol Sulfate (0.083%) 2.5 Mg/3 Ml Vial.Neb) 2.5 mg INHALE Q4H PRN PRN Reason: Shortness of Breath/Wheezing Last Admin: 09/04/23 04:04 Dose: 2.5 mg Documented By: SANDI Albuterol/Ipratropium (Albuterol/Iprat 2.5/0.5mg 3 Ml Ampul.Neb) 3 ml INHALE RQ6H WHILE AWAKE [facility] Last Admin: 09/04/23 07:52 Dose: 3 ml Documented By: EILEEN Ascorbic Acid (Ascorbic Acid 500 Mg Tablet) 500 mg PO DAILY [facility] Last Admin: 09/04/23 08:06 Dose: 500 mg Documented By: EM Ascorbic Acid (Ascorbic Acid 500 Mg Tablet) 500 mg PO DAILY [facility] Last Admin: 09/04/23 08:06 Dose: Not Given Documented By: EM Non-Admin Reason: Duplicate Order Baricitinib (Baricitinib 2 Mg Tablet) 4 mg PO Q24H [facility] Stop: 09/17/23 09:01 Last Admin: 09/04/23 09:07 Dose: 4 mg Documented By: EM Docusate Sodium (Docusate Sodium 100 Mg Capsule) 100 mg PO BID [facility] Last Admin: 09/04/23 08:06 Dose: 100 mg Documented By: EM Enoxaparin Sodium (Enoxaparin Sodium 40 Mg/0.4 Ml Syringe) 40 mg SUBCUT Q12H [facility] Last Admin: 09/04/23 08:03 Dose: 40 mg Documented By: EM Guaifenesin (Guaifenesin La 600 Mg Tab.Er.12h) 600 mg PO BID [facility] Last Admin: 09/04/23 10:31 Dose: 600 mg Documented By: EM Guaifenesin/Codeine Phosphate (Guaifen/Codeine Sf 200/20/10ml 10 Ml Liquid) 10 ml PO Q6H PRN PRN Reason: Cough Last Admin: 09/03/23 03:30 Dose: 10 ml Documented By: BRENDAN Vancomycin HCl 1,000 mg/ (Sodium Chloride) 270 mls @ 270 mls/hr IV Q8H [facility] Last Infusion: 09/04/23 07:41 Dose: Infused Documented By: EM Piperacillin Sod/Tazobactam (Sod 4.5 gm/ Sodium Chloride) 100 mls @ 200 mls/hr IV Q6H [facility] Last Admin: 09/04/23 13:50 Dose: 200 mls/hr Documented By: EM Melatonin (Melatonin 3 Mg Tablet) 6 mg PO BEDTIME PRN PRN Reason: Insomnia Methylprednisolone Sodium Succinate (Methylprednisolone Sod Succ 40 Mg/Ml Vial) 40 mg IVPUSH Q8H [facility] Last Admin: 09/04/23 10:31 Dose: 40 mg Documented By: EM Omeprazole (Omeprazole 20 Mg Capsule.Dr) 20 mg PO DAILY@0630 [facility] Last Admin: 09/04/23 08:06 Dose: 20 mg Documented By: EM Ondansetron HCl (Ondansetron Hcl 4 Mg/2 Ml Vial) 4 mg IVPUSH Q8H PRN PRN Reason: Nausea and Vomiting Last Admin: 09/04/23 04:15 Dose: 4 mg Documented By: MADISON Potassium Phos/Sodium Phos (Sodium,Potassium Phosphates Powd.Pack) 1 packet PO BID [facility] Last Admin: 09/04/23 08:05 Dose: 1 packet Documented By: EM Sodium Chloride (0.9 % Sodium Chloride Flush 3 Ml Syringe) 3 ml IVFLUSH QSHIFT [facility] Last Admin: 09/04/23 08:05 Dose: 3 ml Documented By: EM Zinc Sulfate (Zinc Sulfate 220 Mg Capsule) 220 mg PO BID [facility] Last Admin: 09/04/23 08:06 Dose: 220 mg Documented By: EM Labs 09/04/23 07:59 09/04/23 07:59 Labs: Laboratory Results - last 24 hr 09/03/23 09/04/23 09/04/23 18:12 05:10 07:59 MCV 93.5 MCH 31.3 MCHC 33.4 RDW 14.0 Plt Count 331 MPV 10.3 Absolute Nucleated RBC 0.000 Nucleated RBC % (auto) 0.0 D-Dimer High Sensitivty 208 O2 Saturation 92.0 ABG pH at Pt Temp 7.45 ABG pCO2 at Pt Temp 41 ABG pO2 at Pt Temp 67 L ABG HCO3 28 H ABG Base Excess (Actual) 4.4 Anion Gap 17 Estim Creat Clear Calc 133.0 Estimated GFR > 60 Random Glucose 147 H Calcium 9.4 Nasal Screen MRSA (PCR) Nasal S. aureus Screen Nasal MRSA/S.aureus Interp Random Vancomycin 7.0 L 09/04/23 10:38 MCV MCH MCHC RDW Plt Count MPV Absolute Nucleated RBC Nucleated RBC % (auto) D-Dimer High Sensitivty O2 Saturation ABG pH at Pt Temp ABG pCO2 at Pt Temp ABG pO2 at Pt Temp ABG HCO3 ABG Base Excess (Actual) Anion Gap Estim Creat Clear Calc Estimated GFR Random Glucose Calcium Nasal Screen MRSA (PCR) NEGATIVE Nasal S. aureus Screen NEGATIVE Nasal MRSA/S.aureus Interp SEE NOTE Random Vancomycin Microbiology Microbiology Results: Microbiology 09/02/23 00:21 Blood Culture - Final Blood - Venous Coag negative Staphylococcus Coag negative Staphylococcus#2 09/02/23 00:22 Blood Culture - Preliminary Blood - Venous No growth after 48 hours. Assessment and Plan (1) Acute asthma exacerbation: Status: Acute (2) Obesity (BMI 35.0-39.9 without comorbidity): Status: Acute (3) Sepsis due to COVID-19: Status: Acute (4) Acute respiratory failure with hypoxia: Status: Acute (5) Bacteremia: Status: Acute Plan 1. Acute respiratory failure with hypoxemia due to COVID-19 patient oxygen requirement worsened since yesterday evening this morning patient noted to be tachypneic and tachycardic placed on high-flow oxygen oxygenation now O2 saturation improved to 95%, tachycardia resolved CTA chest showed no PE but showed worsening bilateral infiltrate, leukocytosis due to steroids symptoms likely due to COVID-19 infection with acute asthma exacerbation continue iv steroids, duo nebs and PRN Albuterol updrafts received IV Lasix 40 mg greater than 1 L negative, follow BMP and repeat IV Lasix if renal function and blood pressure allows added IV Zosyn ,will dc IV vancomycin blood culture grew coagulase-negative Staph will place on vitamin-C, zinc and Baricitinib will add Mucinex b.i.d. continue Robitussin with codeine as needed patient evaluated by ICU PA last night and they recommended to re-consult if patient noted to have worsening shortness of breath and no response to high-flow oxygen Id consult 2. Sepsis due to COVID-19 virus infection'and 1/2 bottle of blood culture positive for Gram-positive cocci in clusters - final sensitivities grew coagulase-negative Staphylococcus on likely pathogen will DC IV vancomycin 3. Acute asthma exacerbation - 2/2 COVID-19 infection - treat as above with steroids, Duo Nebs and PRN Albuterol 4. Obesity - BMI of 35.9 - encourage weight loss 5. low phosphorous Neutra-Phos b.i.d. added follow labs patient need continued inpatient hospitalization due to COVID related sepsis and hypoxia requiring high-flow oxygen low threshold to transfer to ICU if do not respond to current treatment. Quality Stroke Does the patient have a stroke diagnosis?: No VTE Prior VTE?: No VTE Risk Level:: Medical - moderate - high VTE Device Contraindication: N/A - Device Ordered VTE Drug Contraindication: N/A - Med Ordered
[2023-09-04] MEDS: guaiFEN/Codeine SF 200/20/10ML 10 ML LIQUID PO (22:47)
[2023-09-04] MEDS: vancomycin HCL 1,250 MG in 0.9 % Sodium Chloride 250 ML 166.67 MG IV (22:47)
[2023-09-05] VITALS (18 sets, daily range): BP systolic 118–159; BP diastolic 70–87; PULSE 72–90; RESP 17–22; TEMP 36.4–37.1; O2SAT 88–97
[2023-09-05] MEDS: 0.9 % Sodium Chloride Flush 3 ML SYRINGE IVFLUSH ×3 (00:33→22:02)
[2023-09-05] MEDS: Piperacillin Sodium/Tazobactam 4.5 GM in 0.9 % Sodium Chloride 100 ML IV ×3 (02:29→14:40)
[2023-09-05] MEDS: methylPREDNISolone Sod Succ 40 MG/ML VIAL IVPUSH ×3 (03:06→19:04)
[2023-09-05] MEDS: Albuterol Sulfate (0.083%) 2.5 MG/3 ML VIAL.NEB INHALE (04:10)
[2023-09-05] MEDS: Omeprazole 20 MG CAPSULE.DR PO (06:08)
[2023-09-05] MEDS: vancomycin HCL 1,250 MG in 0.9 % Sodium Chloride 250 ML 166.67 MG IV ×2 (06:23→14:45)
--- NOTE | 2023-09-05 07:00 | CA_ITS ---
Transthoracic Echocardiogram Patient (Last, First, Middle): Chemo Perdomo, Gender: Male Date of : 1965 Age: 58 Procedure Date: 09/05/2023 Procedure Type: Transthoracic [place] [facility] [place]: 177.8 cm Weight: 123.83 kg BSA: 2.38 m2 Heart Rate: bpm BP: 140 / 83 mmHg Quad Stayer: Referring MD: Hoda Blackburn MD Craps Manager: Cirilo Banks MD Symptoms: [id number]?chf Study Quality: Fair ECG Rhythm: Sinus Conclusions: - 1. Normal LV ejection fraction 65-70% with grade 1 diastolic dysfunction 2. Mildly dilated left atrium 3. Normal cardiac valvular Doppler 4. Normal RV systolic pressure 5. Mildly dilated ascending aorta at 3.7 cm 6. No gross pericardial effusion Findings Procedure Information Contrast agent, definity, is being given per protocol without apparent complications. Left Ventricle Normal left ventricular size, thickness, and systolic function. The visually estimated ejection fraction is between 65-70%. Spectral Doppler is indicative of an impaired relaxation filling pattern. E/E prime ratio is <8, consistent with normal filling pressures. Evidence suggests grade I (mild) diastolic dysfunction. Right Ventricle Normal right ventricular cavity size and systolic function. Atria The left atrium is mildly dilated. Interatrial shunt cannot be excluded. The right atrium was not well visualized. Aortic Valve The aortic valve structure and function is likely normal. There is no aortic valve stenosis. There is no aortic valve regurgitation. Mitral Valve Normal mitral valve structure and function. There is trace mitral valve regurgitation. There is no mitral valve stenosis. Pulmonic Valve The pulmonic valve was not well visualized. Tricuspid Valve Likely normal tricuspid valve structure and function. There is trace tricuspid valve regurgitation. The right ventricular systolic pressure is normal. The right ventricular systolic pressure is 17 mmHg. Normal right atrial pressure. There is no evidence of pulmonary hypertension. Great Vessels The pulmonary artery was not well visualized. There is mild dilatation of the ascending aorta measuring 3.70 cm. Venous The inferior vena cava is normal in size and collapses greater than 50% with inspiration. Pericardium/Pleural There is no evidence of pericardial effusion. Prior Study Comparison No prior study available for comparison. Measurements 2D Linear Measurements IVSd: 1.21 0.6-0.9/0.6-1.0 cm LVIDd: 4.50 3.9-5.3/4.2-5.9 cm LVIDd Index: 1.89 2.4-3.2/2.2-3.1 cm/m2 LVIDs: 2.91 2.0-3.6 cm LVPWd: 1.22 0.7-1.1 cm Ao Root: 3.50 2.1-3.5 cm LA Diam: 3.30 2.7-3.8/3.0-4.0 cm LAIDs Index: 1.39 1.5-2.3 cm/m2 LV Mass: 251.36 67-162/88-224 g LV Mass Index: 105.61 43-95/49-115 g/m2 LVOT Diam: 2.30 3.0+(-)1.3 cm 2D Systolic Function EF 4C: 65.40 >55% EF 2C: 69.20 >55% EF BiP: 67.90 >55% Mitral Valve MV Pk E: 0.74 MV PK A: 0.89 MV Decel Time: 188.00 E/A: 0.80 E'Lateral: 11.60 E'Medial: 7.94 E/E' Med: 9.30 E/E' Lat: 6.40 PHT: 55.00 MVA PHT: 4.00 Decel Hamilton: 3.94 Aortic Valve AoV Pk Jensen: 1.61 AoV Mn Jensen: 0.92 AoV VTI: 0.26 AoV Pk Grad: 10.00 Aov Mn Grad: 4.00 EJ Cont.VTI: 3.67 LVOT LVOT Pk Jensen: 1.26 LVOT Mn Jensen: 0.79 LVOT VTI: 0.23 LVOT Pk Grad: 6.00 LVOT Mn Grad: 3.00 LVOT Diam: 2.30 LVOT Area: 4.15 Diastolic Function MV Pk E: 0.74 MV Pk A: 0.89 E/A: 0.80 E'Medial: 7.94 E/E' Med: 9.30 E' Laterial: 11.60 E/E' Lat: 6.40 Right Ventricle TAPSE (mm): 29.00 TVS' Jensen: 18.00 Tricuspid Valve TR Pk Jensen: 1.89 TR Pk Grad: 14.00 RA Press: 3.00 RVSP: 17.00 Great Vessels Aorta Ao Root-2D: 3.50 2.0-3.7 cm Ao Asc: 3.70 2.1-3.4 cm Pulmonary Valve PV Pk Jensen: 1.31 Peak PV Grad: 7.00 Updated in Other Vendor System with Status of Final Cirilo Banks MD electronically signed on 09/05/2023 4:17:47 PM with status of Final
[2023-09-05] MEDS: Albuterol/Iprat 2.5/0.5MG 3 ML AMPUL.NEB INHALE ×3 (08:08→20:03)
[2023-09-05] MEDS: Enoxaparin Sodium 40 MG/0.4 ML SYRINGE SUBCUT ×2 (08:49→21:59)
[2023-09-05] MEDS: Sodium,Potassium Phosphates POWD.PACK 1 PACKET PO ×2 (08:50→21:59)
[2023-09-05] MEDS: guaiFENesin LA 600 MG TAB.ER.12H PO ×2 (08:50→21:59)
[2023-09-05] MEDS: Ascorbic Acid 500 MG TABLET PO (08:50)
[2023-09-05] MEDS: Zinc Sulfate 220 MG CAPSULE PO ×2 (08:50→21:59)
[2023-09-05 10:19] LABS: Hematocrit 39.1 % (42.0-52.0); Hemoglobin 12.9 g/dl (14.0-18.0); Mean Corpuscular Hemoglobin 31.2 pg (27.0-33.0); Mean Corpuscular Volume 94.7 fL (80.0-98.0); Mean Platelet Volume 10.6 fL (9.4-12.4); Platelet Count 323 X10*3/uL (160-400); Red Blood Count 4.13 X10*6/uL (4.60-5.80); Red Cell Distribution Width 14.2 % (11.0-16.0); White Blood Count 19.3 X10*3/uL (4.8-10.8)
[2023-09-05 10:36] LABS: Anion Gap 15 (12-20); Blood Urea Nitrogen 26 mg/dL (9-16); Calcium 8.9 mg/dL (8.4-10.2); Carbon Dioxide 27 mmol/L (22-29); Chloride 102 mmol/L (96-108); Creatinine Clr Calc Pharmacy 140.1; Estimated Glomerular Filt Rate > 60; Glucose Random 163 mg/dL (60-115); Potassium 3.9 mmol/L (3.3-5.1); Sodium 140 mmol/L (135-145)
--- NOTE | 2023-09-05 14:04 | MHC.CM.PN ---
Pt is not yet ready for DC, he is requiring high flow supplemental O2, CM will follow and assist with DC planning.
--- NOTE | 2023-09-05 16:50 | P.PNIM_ITS ---
Subjective Subjective Date of Service: 09/05/23 Interval History: Still requiring high-flow O2. No new issues Review of Systems Denies chest pain Admits to shortness of breath which is not essentially improved Denies nausea vomiting or diarrhea Denies fever chills Physical Exam 2 Vital Signs: Vital Signs: Last Vital Signs Temp 98 F 09/05/23 16:00 Pulse 88 09/05/23 16:00 Resp 18 09/05/23 16:00 BP 118/87 09/05/23 11:24 Pulse Ox 97 09/05/23 11:24 O2 Del Method High Flow Nasal C annula 09/05/23 16:00 O2 Flow Rate 50 09/05/23 16:00 FiO2 80 09/05/23 16:00 BMI result Body Mass Index 39.2 Const: Other: Awake alert no acute distress Resp: Other: Diminished throughout with scant expiratory wheezes Cardio: Other: No S4; positive S1-S2; no S3 murmurs rubs or gallops GI: Other: Soft nontender nondistended normoactive bowel sounds Extrem: Other: No edema bilaterally Objective Data Active Medications Acetaminophen (Acetaminophen 325 Mg Tablet) 650 mg PO Q6H PRN PRN Reason: Pain, Mild (Pain Scale 1-3) Al Hydroxide/Mg Hydroxide (Magnesium Hydrox/Alum Hydrox 30 Ml Oral.Susp) 30 ml PO Q4H PRN PRN Reason: Heartburn/Nausea Albuterol Sulfate (Albuterol Sulfate (0.083%) 2.5 Mg/3 Ml Vial.Neb) 2.5 mg INHALE Q4H PRN PRN Reason: Shortness of Breath/Wheezing Last Admin: 09/05/23 04:10 Dose: 2.5 mg Documented By: CINDA Albuterol/Ipratropium (Albuterol/Iprat 2.5/0.5mg 3 Ml Ampul.Neb) 3 ml INHALE RQ6H WHILE AWAKE [facility] Last Admin: 09/05/23 15:15 Dose: 3 ml Documented By: JULES Ascorbic Acid (Ascorbic Acid 500 Mg Tablet) 500 mg PO DAILY [facility] Last Admin: 09/05/23 08:50 Dose: 500 mg Documented By: DUONG Ascorbic Acid (Ascorbic Acid 500 Mg Tablet) 500 mg PO DAILY [facility] Last Admin: 09/05/23 09:10 Dose: Not Given Documented By: DUONG Non-Admin Reason: Decreased Heart Rate Baricitinib (Baricitinib 2 Mg Tablet) 4 mg PO Q24H [facility] Stop: 09/17/23 09:01 Last Admin: 09/05/23 08:50 Dose: 4 mg Documented By: DUONG Docusate Sodium (Docusate Sodium 100 Mg Capsule) 100 mg PO BID [facility] Last Admin: 09/05/23 09:10 Dose: Not Given Documented By: DUONG Non-Admin Reason: diarrhea Enoxaparin Sodium (Enoxaparin Sodium 40 Mg/0.4 Ml Syringe) 40 mg SUBCUT Q12H [facility] Last Admin: 09/05/23 08:49 Dose: 40 mg Documented By: DUONG Guaifenesin (Guaifenesin La 600 Mg Tab.Er.12h) 600 mg PO BID [facility] Last Admin: 09/05/23 08:50 Dose: 600 mg Documented By: DUONG Guaifenesin/Codeine Phosphate (Guaifen/Codeine Sf 200/20/10ml 10 Ml Liquid) 10 ml PO Q6H PRN PRN Reason: Cough Last Admin: 09/04/23 22:47 Dose: 10 ml Documented By: JOSIE Piperacillin Sod/Tazobactam (Sod 4.5 gm/ Sodium Chloride) 100 mls @ 200 mls/hr IV Q6H [facility] Last Infusion: 09/05/23 15:02 Dose: 0 mls/hr Documented By: DUONG Vancomycin HCl 1,250 mg/ (Sodium Chloride) 250 mls @ 166.667 mls/hr IV Q8H [facility] Last Infusion: 09/05/23 15:02 Dose: 0 mls/hr Documented By: DUONG Lorazepam (Lorazepam 0.5 Mg Tablet) 0.5 mg PO Q8H PRN PRN Reason: anxiety Melatonin (Melatonin 3 Mg Tablet) 6 mg PO BEDTIME PRN PRN Reason: Insomnia Methylprednisolone Sodium Succinate (Methylprednisolone Sod Succ 40 Mg/Ml Vial) 40 mg IVPUSH Q8H [facility] Last Admin: 09/05/23 11:28 Dose: 40 mg Documented By: DUONG Morphine Sulfate (Morphine Sulfate 4 Mg/Ml Cartridge) 3 mg IVPUSH Q3H PRN; Protocol PRN Reason: respiratory distress Omeprazole (Omeprazole 20 Mg Capsule.) 20 mg PO DAILY@0630 [facility] Last Admin: 09/05/23 06:08 Dose: 20 mg Documented By: DARLIN Ondansetron HCl (Ondansetron Hcl 4 Mg/2 Ml Vial) 4 mg IVPUSH Q8H PRN PRN Reason: Nausea and Vomiting Last Admin: 09/04/23 04:15 Dose: 4 mg Documented By: MADISON Potassium Phos/Sodium Phos (Sodium,Potassium Phosphates Powd.Pack) 1 packet PO BID [facility] Last Admin: 09/05/23 08:50 Dose: 1 packet Documented By: DUONG Sodium Chloride (0.9 % Sodium Chloride Flush 3 Ml Syringe) 3 ml IVFLUSH QSHIFT [facility] Last Admin: 09/05/23 08:50 Dose: 3 ml Documented By: DUONG Zinc Sulfate (Zinc Sulfate 220 Mg Capsule) 220 mg PO BID [facility] Last Admin: 09/05/23 08:50 Dose: 220 mg Documented By: DUONG Labs 09/05/23 09:29 09/05/23 09:29 Labs: Laboratory Results - last 24 hr 09/04/23 09/05/23 21:00 09:29 MCV 94.7 MCH 31.2 MCHC 33.0 RDW 14.2 Plt Count 323 MPV 10.6 Absolute Nucleated RBC 0.000 Nucleated RBC % (auto) 0.0 Anion Gap 15 Estim Creat Clear Calc 140.1 Estimated GFR > 60 Random Glucose 163 H Calcium 8.9 Random Vancomycin 11.0 L Assessment and Plan (1) Sepsis due to COVID-19: Status: Acute (2) Acute asthma exacerbation: Status: Acute Plan 58 year old obese (BMI 35.9) white male with underlying medical history of mild asthma and recent diagnosis of COVID-19 virus infection (he is vaccinated) presents to the emergency room complaining of worsening productive cough, chest pain, fevers, chills and shortness of breath that is worse with exertion. He was diagnosed with COVID-19 infection about a week ago at the onset of his symptoms and saw his PCP who prescribed 5 days of steroids that he completed with transient improvement in his condition. His condition deteriorated and presented to the emergency room for treatment 1. Acute respiratory failure with hypoxemia due to COVID-19 -continue vancomycin/Zosyn (2) -high-flow O2; titrate as tolerated -id consult 2. Sepsis due to COVID-19 virus.. Resolved -treat as clinically indicated 3. Acute asthma exacerbation - 2/2 COVID-19 infection - treat as above with steroids, Duo Nebs and PRN Albuterol -titrate O2 as tolerated 4. Obesity - BMI of 35.9 - encourage weight loss Full code Lovenox Patient will require ongoing hospitalization for treatment of acute respiratory failure secondary COVID in the need for high-flow oxygen Quality Stroke Does the patient have a stroke diagnosis?: No VTE Prior VTE?: No VTE Risk Level:: Medical - moderate - high VTE Device Contraindication: N/A - Device Ordered VTE Drug Contraindication: N/A - Med Ordered
--- NOTE | 2023-09-05 21:36 | W.PM.IDCN ---
History of Present Illness Data of Consult Service Date: 09/05/23 Requesting physician: Talon Marie Primary Care Provider: Brittani Bender MD HPI Reason for consult: shortness of breath ,COVID He presents with shortness of breath for one day. He has had cough for a week. He now tests positive for COVID. He has not had Paxlovid. Procalcitonin is .39. There is diffuse hazy groundglass infiltrates. Review of Systems Review of Systems: Yes all other systems are reviewed and are negative [facility] Past Medical History Medical History Asthma Family History Family history: reviewed and not pertinent Social History Social History Household Members: Spouse and Children Housing: House Do you presently have visiting nurse or other home services: No Patient Tobacco Use Status: Former Tobacco user Second Hand Smoke Exposure: No service: No Meds Allergies Allergy/AdvReac Type Severity Reaction Status Date / Time No Known Allergies Allergy Verified 09/01/23 23:08 Active Medications: Current Medications Acetaminophen (Acetaminophen 325 Mg Tablet) 650 mg PO Q6H PRN PRN Reason: Pain, Mild (Pain Scale 1-3) Al Hydroxide/Mg Hydroxide (Magnesium Hydrox/Alum Hydrox 30 Ml Oral.Susp) 30 ml PO Q4H PRN PRN Reason: Heartburn/Nausea Albuterol Sulfate (Albuterol Sulfate (0.083%) 2.5 Mg/3 Ml Vial.Neb) 2.5 mg INHALE Q4H PRN PRN Reason: Shortness of Breath/Wheezing Last Admin: 09/05/23 04:10 Dose: 2.5 mg Albuterol/Ipratropium (Albuterol/Iprat 2.5/0.5mg 3 Ml Ampul.Neb) 3 ml INHALE RQ6H WHILE AWAKE [facility] Last Admin: 09/05/23 20:03 Dose: 3 ml Ascorbic Acid (Ascorbic Acid 500 Mg Tablet) 500 mg PO DAILY [facility] Last Admin: 09/05/23 08:50 Dose: 500 mg Ascorbic Acid (Ascorbic Acid 500 Mg Tablet) 500 mg PO DAILY [facility] Last Admin: 09/05/23 09:10 Dose: Not Given Baricitinib (Baricitinib 2 Mg Tablet) 4 mg PO Q24H [facility] Stop: 09/17/23 09:01 Last Admin: 09/05/23 08:50 Dose: 4 mg Docusate Sodium (Docusate Sodium 100 Mg Capsule) 100 mg PO BID [facility] Last Admin: 09/05/23 09:10 Dose: Not Given Enoxaparin Sodium (Enoxaparin Sodium 40 Mg/0.4 Ml Syringe) 40 mg SUBCUT Q12H [facility] Last Admin: 09/05/23 08:49 Dose: 40 mg Guaifenesin (Guaifenesin La 600 Mg Tab.Er.12h) 600 mg PO BID [facility] Last Admin: 09/05/23 08:50 Dose: 600 mg Guaifenesin/Codeine Phosphate (Guaifen/Codeine Sf 200/20/10ml 10 Ml Liquid) 10 ml PO Q6H PRN PRN Reason: Cough Last Admin: 09/04/23 22:47 Dose: 10 ml Piperacillin Sod/Tazobactam (Sod 4.5 gm/ Sodium Chloride) 100 mls @ 200 mls/hr IV Q6H [facility] Last Infusion: 09/05/23 15:02 Dose: 0 mls/hr Vancomycin HCl 1,250 mg/ (Sodium Chloride) 250 mls @ 166.667 mls/hr IV Q8H [facility] Last Infusion: 09/05/23 15:02 Dose: 0 mls/hr Lorazepam (Lorazepam 0.5 Mg Tablet) 0.5 mg PO Q8H PRN PRN Reason: anxiety Melatonin (Melatonin 3 Mg Tablet) 6 mg PO BEDTIME PRN PRN Reason: Insomnia Methylprednisolone Sodium Succinate (Methylprednisolone Sod Succ 40 Mg/Ml Vial) 40 mg IVPUSH Q8H [facility] Last Admin: 09/05/23 19:04 Dose: 40 mg Morphine Sulfate (Morphine Sulfate 4 Mg/Ml Cartridge) 3 mg IVPUSH Q3H PRN; Protocol PRN Reason: respiratory distress Omeprazole (Omeprazole 20 Mg Capsule.Dr) 20 mg PO DAILY@0630 [facility] Last Admin: 09/05/23 06:08 Dose: 20 mg Ondansetron HCl (Ondansetron Hcl 4 Mg/2 Ml Vial) 4 mg IVPUSH Q8H PRN PRN Reason: Nausea and Vomiting Last Admin: 09/04/23 04:15 Dose: 4 mg Potassium Phos/Sodium Phos (Sodium,Potassium Phosphates Powd.Pack) 1 packet PO BID [facility] Last Admin: 09/05/23 08:50 Dose: 1 packet Sodium Chloride (0.9 % Sodium Chloride Flush 3 Ml Syringe) 3 ml IVFLUSH QSHIFT [facility] Last Admin: 09/05/23 18:02 Dose: Not Given Zinc Sulfate (Zinc Sulfate 220 Mg Capsule) 220 mg PO BID [facility] Last Admin: 09/05/23 08:50 Dose: 220 mg Home Medications Medication Instructions Recorded Confirmed Last Taken Type albuterol 90 mcg/actuation aerosol 2 mcg inhalation Q4H PRN Shortness 09/03/23 09/03/23 Unknown History inhaler Of Breath Or Wheezing Physical Exam Vital Signs: Vital Signs: Last Vital Signs Temp 98.8 F 09/05/23 20:00 Pulse 88 09/05/23 20:05 Resp 18 09/05/23 20:06 BP 159/70 H 09/05/23 20:00 Pulse Ox 93 09/05/23 20:00 O2 Del Method High Flow Nasal C annula 09/05/23 20:00 O2 Flow Rate 50 09/05/23 16:00 FiO2 80 09/05/23 16:00 BMI result Body Mass Index 39.2 Const: General: No cooperative Resp: Effort & Inspection: decreased respiratory effort Cardio: Rate: regular rate Rhythm: regular rhythm GI: Inspection: Yes normal to inspection Results Labs 09/05/23 09:29 09/05/23 09:29 Labs: Short CBC 09/05/23 Range/Units 09:29 WBC 19.3 H (4.8-10.8) X10*3/uL Hgb 12.9 L (14.0-18.0) g/dl Hct 39.1 L (42.0-52.0) % Plt Count 323 (160-400) X10*3/uL BMP 09/05/23 09:29 Sodium 140 Potassium 3.9 Chloride 102 Carbon Dioxide 27 BUN 26 H Creatinine 0.75 Calcium 8.9 Microbiology Microbiology Results: Microbiology 09/02/23 00:21 Blood - Venous Blood Culture - Final Coag negative Staphylococcus Coag negative Staphylococcus#2 09/02/23 00:22 Blood - Venous Blood Culture - Preliminary No growth after 48 hours. Assessment and Plan (1) Bacteremia: Status: Acute (2) Acute asthma exacerbation: Status: Acute (3) Sepsis due to COVID-19: Status: Acute (4) Viral pneumonia: Status: Acute He has low procalcitonin. Blood culture contaminant staph epi COVID moderate severity seven days Plan Agree with baricitinib since on HFNC. There is too long duration COVID since over a weeks for Remdesivir. Blood culture contaminant and no indication for bacterial pneumonia so can stop antibiotics. Give Prednisone until not hypoxic. DVT prophylaxis.
[2023-09-05 21:54] LABS: Vancomycin Random 18.8 mcg/mL (15-20)
[2023-09-05] MEDS: LORazepam 0.5 MG TABLET PO (21:59)
[2023-09-06] VITALS (11 sets, daily range): BP systolic 127–141; BP diastolic 72–88; PULSE 75–90; RESP 18–22; TEMP 36.2–37.2; O2SAT 85–96
[2023-09-06] MEDS: methylPREDNISolone Sod Succ 40 MG/ML VIAL IVPUSH ×2 (02:54→12:15)
[2023-09-06] MEDS: Albuterol Sulfate (0.083%) 2.5 MG/3 ML VIAL.NEB INHALE (03:09)
[2023-09-06] MEDS: Throat Lozenge, Medicated LOZENGE 1 LOZENGE MUCOUS MEM (03:33)
[2023-09-06] MEDS: Omeprazole 20 MG CAPSULE.DR PO (05:18)
[2023-09-06] MEDS: guaiFEN/Codeine SF 200/20/10ML 10 ML LIQUID PO ×2 (05:18→22:37)
[2023-09-06 06:53] LABS: Basophils Percent Auto 0.2 % (0-2); Hematocrit 38.4 % (42.0-52.0); Hemoglobin 13.1 g/dl (14.0-18.0); Imm Gran Abs Auto 0.75 X10*3/uL (0.00-0.03); Imm Gran Pct Auto 3.3 % (0.0-0.4); Lymphocytes Absolute Auto 0.7 X10*3/uL (1.2-4.9); Lymphocytes Percent Auto 3.2 % (20-40); MANUAL DIFF FLAG SCAN; Mean Corpuscular HGB Conc 34.1 g/dl (31.0-36.0); Mean Corpuscular Hemoglobin 31.4 pg (27.0-33.0); Mean Corpuscular Volume 92.1 fL (80.0-98.0); Mean Platelet Volume 10.3 fL (9.4-12.4); Monocytes Absolute Auto 0.8 X10*3/uL (0.1-1.2); Monocytes Percent Auto 3.4 % (2-11); Neutrophils Absolute Auto 20.2 x10*3/uL (2.0-8.3); Neutrophils Percent Auto 89.9 % (45-73); Platelet Count 321 X10*3/uL (160-400); Red Blood Count 4.17 X10*6/uL (4.60-5.80); Red Cell Distribution Width 13.9 % (11.0-16.0); SCAN SMEAR FLAG 1; White Blood Count 22.5 X10*3/uL (4.8-10.8)
[2023-09-06 07:12] LABS: Alanine Aminotransferase 56 U/L (0-40); Albumin Level 3.4 g/dL (3.5-5.0); Alkaline Phosphatase 73 U/L (39-117); Anion Gap 13 (12-20); Aspartate Amino Transferase 20 U/L (5-37); Bilirubin Total 0.5 mg/dL (0.0-1.0); Blood Urea Nitrogen 23 mg/dL (9-16); Calcium 9.1 mg/dL (8.4-10.2); Carbon Dioxide 25 mmol/L (22-29); Chloride 104 mmol/L (96-108); Creatinine Clr Calc Pharmacy 159.2; Estimated Glomerular Filt Rate > 60; Glucose Fasting 141 mg/dL (60-99); Potassium 4.4 mmol/L (3.3-5.1); Sodium 138 mmol/L (135-145); Total Protein 6.3 g/dL (6.5-8.0)
[2023-09-06 07:36] LABS: SLIDE REVIEW VERIFIED
[2023-09-06] MEDS: Albuterol/Iprat 2.5/0.5MG 3 ML AMPUL.NEB INHALE ×3 (08:02→20:17)
[2023-09-06] MEDS: Sodium,Potassium Phosphates POWD.PACK 1 PACKET PO ×2 (08:19→22:38)
[2023-09-06] MEDS: Docusate Sodium 100 MG CAPSULE PO (08:20)
[2023-09-06] MEDS: guaiFENesin LA 600 MG TAB.ER.12H PO ×2 (08:20→22:37)
[2023-09-06] MEDS: Ascorbic Acid 500 MG TABLET PO (08:20)
[2023-09-06] MEDS: Zinc Sulfate 220 MG CAPSULE PO ×2 (08:20→22:37)
[2023-09-06] MEDS: Enoxaparin Sodium 40 MG/0.4 ML SYRINGE SUBCUT ×2 (08:21→22:38)
[2023-09-06] MEDS: 0.9 % Sodium Chloride Flush 3 ML SYRINGE IVFLUSH ×2 (08:21→17:05)
--- NOTE | 2023-09-06 16:13 | HO.PM.IMPN ---
Subjective Subjective Date of Service: 09/06/23 Interval History: Continues to improve. Tolerating wean of high-flow without issue Review of Systems Denies chest pain Admits to shortness of breath which is not essentially improved Denies nausea vomiting or diarrhea Denies fever chills Physical Exam Vital Signs: Vital Signs: Last Vital Signs Temp 97.9 F 09/06/23 15:47 Pulse 75 09/06/23 15:47 Resp 18 09/06/23 15:47 BP 127/72 09/06/23 15:47 Pulse Ox 89 L 09/06/23 15:47 O2 Del Method BiPAP 09/06/23 15:47 O2 Flow Rate 31 09/06/23 07:56 FiO2 93 09/06/23 07:56 BMI result Body Mass Index 39.2 Const: Other: Awake alert no acute distress Resp: Other: Diminished throughout with scant expiratory wheezes Cardio: Other: No S4; positive S1-S2; no S3 murmurs rubs or gallops GI: Other: Soft nontender nondistended normoactive bowel sounds Extrem: Other: No edema bilaterally Objective Data Active Medications Acetaminophen (Acetaminophen 325 Mg Tablet) 650 mg PO Q6H PRN PRN Reason: Pain, Mild (Pain Scale 1-3) Al Hydroxide/Mg Hydroxide (Magnesium Hydrox/Alum Hydrox 30 Ml Oral.Susp) 30 ml PO Q4H PRN PRN Reason: Heartburn/Nausea Albuterol Sulfate (Albuterol Sulfate (0.083%) 2.5 Mg/3 Ml Vial.Neb) 2.5 mg INHALE Q4H PRN PRN Reason: Shortness of Breath/Wheezing Last Admin: 09/06/23 03:09 Dose: 2.5 mg Documented By: SANDI Albuterol/Ipratropium (Albuterol/Iprat 2.5/0.5mg 3 Ml Ampul.Neb) 3 ml INHALE RQ6H WHILE AWAKE [facility] Last Admin: 09/06/23 15:25 Dose: 3 ml Documented By: CELINA Ascorbic Acid (Ascorbic Acid 500 Mg Tablet) 500 mg PO DAILY [facility] Last Admin: 09/06/23 08:20 Dose: 500 mg Documented By: JOSE A Ascorbic Acid (Ascorbic Acid 500 Mg Tablet) 500 mg PO DAILY [facility] Last Admin: 09/06/23 08:31 Dose: Not Given Documented By: JOSE A Non-Admin Reason: Duplicate Order Baricitinib (Baricitinib 2 Mg Tablet) 4 mg PO Q24H [facility] Stop: 09/17/23 09:01 Last Admin: 09/06/23 08:20 Dose: 4 mg Documented By: JOSE A Benzocaine (Throat Lozenge, Medicated Lozenge) 1 lozenge MUCOUS MEM Q2H PRN PRN Reason: Sore Throat Last Admin: 09/06/23 03:33 Dose: 1 lozenge Documented By: DARLIN Docusate Sodium (Docusate Sodium 100 Mg Capsule) 100 mg PO BID [facility] Last Admin: 09/06/23 08:20 Dose: 100 mg Documented By: JOSE A Enoxaparin Sodium (Enoxaparin Sodium 40 Mg/0.4 Ml Syringe) 40 mg SUBCUT Q12H [facility] Last Admin: 09/06/23 08:21 Dose: 40 mg Documented By: JOSE A Guaifenesin (Guaifenesin La 600 Mg Tab.Er.12h) 600 mg PO BID [facility] Last Admin: 09/06/23 08:20 Dose: 600 mg Documented By: JOSE A Guaifenesin/Codeine Phosphate (Guaifen/Codeine Sf 200/20/10ml 10 Ml Liquid) 10 ml PO Q6H PRN PRN Reason: Cough Last Admin: 09/06/23 05:18 Dose: 10 ml Documented By: DARLIN Lorazepam (Lorazepam 0.5 Mg Tablet) 0.5 mg PO Q8H PRN PRN Reason: anxiety Last Admin: 09/05/23 21:59 Dose: 0.5 mg Documented By: BRAD Melatonin (Melatonin 3 Mg Tablet) 6 mg PO BEDTIME PRN PRN Reason: Insomnia Methylprednisolone Sodium Succinate (Methylprednisolone Sod Succ 40 Mg/Ml Vial) 40 mg IVPUSH Q8H [facility] Last Admin: 09/06/23 12:15 Dose: 40 mg Documented By: JOSE A Morphine Sulfate (Morphine Sulfate 4 Mg/Ml Cartridge) 3 mg IVPUSH Q3H PRN; Protocol PRN Reason: respiratory distress Omeprazole (Omeprazole 20 Mg Capsule.Dr) 20 mg PO DAILY@0630 [facility] Last Admin: 09/06/23 05:18 Dose: 20 mg Documented By: DARLIN Ondansetron HCl (Ondansetron Hcl 4 Mg/2 Ml Vial) 4 mg IVPUSH Q8H PRN PRN Reason: Nausea and Vomiting Last Admin: 09/04/23 04:15 Dose: 4 mg Documented By: MADISON Potassium Phos/Sodium Phos (Sodium,Potassium Phosphates Powd.Pack) 1 packet PO BID [facility] Last Admin: 09/06/23 08:19 Dose: 1 packet Documented By: JOSE A Sodium Chloride (0.9 % Sodium Chloride Flush 3 Ml Syringe) 3 ml IVFLUSH QSHIFT [facility] Last Admin: 09/06/23 08:21 Dose: 3 ml Documented By: JOSE A Zinc Sulfate (Zinc Sulfate 220 Mg Capsule) 220 mg PO BID [facility] Last Admin: 09/06/23 08:20 Dose: 220 mg Documented By: JOSE A Labs 09/06/23 06:41 09/06/23 06:41 Labs: Laboratory Results - last 24 hr 09/05/23 09/06/23 21:26 06:41 MCV 92.1 MCH 31.4 MCHC 34.1 RDW 13.9 Plt Count 321 MPV 10.3 Immature Gran % (Auto) 3.3 H Neut % (Auto) 89.9 H Lymph % (Auto) 3.2 L [place] % (Auto) 3.4 Eos % (Auto) 0.0 Baso % (Auto) 0.2 Lymph # (Auto) 0.7 L [place] # (Auto) 0.8 Eos # (Auto) 0.0 Baso # (Auto) 0.0 Abs Immat Gran (auto) 0.75 H Absolute Neuts (auto) 20.2 H Absolute Nucleated RBC 0.000 Nucleated RBC % (auto) 0.0 Smear Tech's Comments VERIFIED Anion Gap 13 Estim Creat Clear Calc 159.2 Estimated GFR > 60 Fasting Glucose 141 H Calcium 9.1 Total Bilirubin 0.5 AST 20 ALT 56 H Alkaline Phosphatase 73 Total Protein 6.3 L Albumin 3.4 L Random Vancomycin 18.8 Assessment and Plan (1) Acute respiratory failure with hypoxia: Status: Acute (2) COVID-19 virus infection: Status: Acute Plan 58 year old obese (BMI 35.9) white male with underlying medical history of mild asthma and recent diagnosis of COVID-19 virus infection (he is vaccinated) presents to the emergency room complaining of worsening productive cough, chest pain, fevers, chills and shortness of breath that is worse with exertion. He was diagnosed with COVID-19 infection about a week ago at the onset of his symptoms and saw his PCP who prescribed 5 days of steroids that he completed with transient improvement in his condition. His condition deteriorated and presented to the emergency room for treatment 1. Acute respiratory failure with hypoxemia due to COVID-19 -vanco/Zosyn DC id at id is request -high-flow O2; titrate as tolerated -id consult 2. Sepsis due to COVID-19 virus.. Resolved -treat as clinically indicated 3. Acute asthma exacerbation - 2/2 COVID-19 infection - treat as above with steroids, Duo Nebs and PRN Albuterol -titrate O2 as tolerated 4. Obesity - BMI of 35.9 - encourage weight loss Full code Lovenox Patient will require ongoing hospitalization for treatment of acute respiratory failure secondary COVID in the need for high-flow oxygen Quality Stroke Does the patient have a stroke diagnosis?: No VTE Prior VTE?: No VTE Risk Level:: Medical - moderate - high VTE Device Contraindication: N/A - Device Ordered VTE Drug Contraindication: N/A - Med Ordered
[2023-09-06] MEDS: methylPREDNISolone Sod Succ 125 MG/2 ML VIAL 60 MG IVPUSH ×2 (17:05→22:37)
[2023-09-07] VITALS (15 sets, daily range): BP systolic 115–139; BP diastolic 68–81; PULSE 75–91; RESP 17–24; TEMP 36.2–36.9; O2SAT 87–95
[2023-09-07] MEDS: Albuterol Sulfate (0.083%) 2.5 MG/3 ML VIAL.NEB INHALE (00:14)
[2023-09-07] MEDS: Benzonatate 100 MG CAPSULE 200 MG PO ×2 (02:21→16:36)
[2023-09-07] MEDS: Throat Lozenge, Medicated LOZENGE 1 LOZENGE MUCOUS MEM ×3 (02:23→16:36)
[2023-09-07] MEDS: methylPREDNISolone Sod Succ 125 MG/2 ML VIAL 60 MG IVPUSH ×4 (06:26→22:18)
[2023-09-07] MEDS: Omeprazole 20 MG CAPSULE.DR PO (06:27)
[2023-09-07 07:18] LABS: Basophils Absolute Auto 0.1 X10*3/uL (0.0-0.2); Basophils Percent Auto 0.2 % (0-2); Hematocrit 39.9 % (42.0-52.0); Hemoglobin 13.4 g/dl (14.0-18.0); Imm Gran Abs Auto 0.95 X10*3/uL (0.00-0.03); Imm Gran Pct Auto 4.1 % (0.0-0.4); Lymphocytes Absolute Auto 0.7 X10*3/uL (1.2-4.9); Lymphocytes Percent Auto 3.1 % (20-40); MANUAL DIFF FLAG SCAN; Mean Corpuscular HGB Conc 33.6 g/dl (31.0-36.0); Mean Corpuscular Hemoglobin 30.9 pg (27.0-33.0); Mean Corpuscular Volume 91.9 fL (80.0-98.0); Mean Platelet Volume 10.3 fL (9.4-12.4); Monocytes Absolute Auto 0.7 X10*3/uL (0.1-1.2); Neutrophils Absolute Auto 20.7 x10*3/uL (2.0-8.3); Neutrophils Percent Auto 89.6 % (45-73); Platelet Count 373 X10*3/uL (160-400); Red Blood Count 4.34 X10*6/uL (4.60-5.80); Red Cell Distribution Width 13.9 % (11.0-16.0); SCAN SMEAR FLAG 1; White Blood Count 23.1 X10*3/uL (4.8-10.8)
[2023-09-07 07:33] LABS: Alanine Aminotransferase 48 U/L (0-40); Albumin Level 3.5 g/dL (3.5-5.0); Alkaline Phosphatase 71 U/L (39-117); Anion Gap 15 (12-20); Aspartate Amino Transferase 18 U/L (5-37); Bilirubin Total 0.7 mg/dL (0.0-1.0); Blood Urea Nitrogen 22 mg/dL (9-16); Calcium 8.9 mg/dL (8.4-10.2); Carbon Dioxide 24 mmol/L (22-29); Chloride 102 mmol/L (96-108); Creatinine Clr Calc Pharmacy 140.1; Estimated Glomerular Filt Rate > 60; Glucose Fasting 145 mg/dL (60-99); Potassium 4.5 mmol/L (3.3-5.1); Sodium 136 mmol/L (135-145); Total Protein 6.5 g/dL (6.5-8.0)
[2023-09-07] MEDS: Albuterol/Iprat 2.5/0.5MG 3 ML AMPUL.NEB INHALE ×3 (07:53→19:22)
[2023-09-07 10:27] LABS: SLIDE REVIEW VERIFIED
[2023-09-07] MEDS: 0.9 % Sodium Chloride Flush 3 ML SYRINGE IVFLUSH ×3 (10:28→20:14)
[2023-09-07] MEDS: Enoxaparin Sodium 40 MG/0.4 ML SYRINGE SUBCUT ×2 (10:28→20:13)
[2023-09-07] MEDS: Sodium,Potassium Phosphates POWD.PACK 1 PACKET PO ×2 (10:29→20:13)
[2023-09-07] MEDS: Zinc Sulfate 220 MG CAPSULE PO ×2 (10:29→20:13)
[2023-09-07] MEDS: Ascorbic Acid 500 MG TABLET PO ×2 (10:30)
[2023-09-07] MEDS: guaiFENesin LA 600 MG TAB.ER.12H PO ×2 (10:30→20:13)
--- NOTE | 2023-09-07 13:21 | MHC.CM.PN ---
Pt not yet medically cleared for DC, improving with treatment. CM to follow and assist with DC planning.
--- NOTE | 2023-09-07 14:16 | HO.PM.IMPN ---
Subjective Subjective Date of Service: 09/07/23 Interval History: Doing much better however continues to wean slowly. No acute issues overnight Review of Systems Denies chest pain Admits to shortness of breath which is not essentially improved Denies nausea vomiting or diarrhea Denies fever chills Physical Exam Vital Signs: Vital Signs: Last Vital Signs Temp 98.3 F 09/07/23 11:02 Pulse 88 09/07/23 11:02 Resp 17 09/07/23 11:28 BP 126/73 09/07/23 11:02 Pulse Ox 90 L 09/07/23 11:02 O2 Del Method High Flow Nasal C annula 09/07/23 11:02 O2 Flow Rate 31 09/07/23 11:02 FiO2 78 09/07/23 11:02 BMI result Body Mass Index 39.2 Const: Other: Awake alert no acute distress Resp: Other: Diminished throughout with scant expiratory wheezes Cardio: Other: No S4; positive S1-S2; no S3 murmurs rubs or gallops GI: Other: Soft nontender nondistended normoactive bowel sounds Extrem: Other: No edema bilaterally Objective Data Active Medications Acetaminophen (Acetaminophen 325 Mg Tablet) 650 mg PO Q6H PRN PRN Reason: Pain, Mild (Pain Scale 1-3) Al Hydroxide/Mg Hydroxide (Magnesium Hydrox/Alum Hydrox 30 Ml Oral.Susp) 30 ml PO Q4H PRN PRN Reason: Heartburn/Nausea Albuterol Sulfate (Albuterol Sulfate (0.083%) 2.5 Mg/3 Ml Vial.Neb) 2.5 mg INHALE Q4H PRN PRN Reason: Shortness of Breath/Wheezing Last Admin: 09/07/23 00:14 Dose: 2.5 mg Documented By: SANDI Albuterol/Ipratropium (Albuterol/Iprat 2.5/0.5mg 3 Ml Ampul.Neb) 3 ml INHALE RQ6H WHILE AWAKE [facility] Last Admin: 09/07/23 07:53 Dose: 3 ml Documented By: CELINA Ascorbic Acid (Ascorbic Acid 500 Mg Tablet) 500 mg PO DAILY [facility] Last Admin: 09/07/23 10:30 Dose: 500 mg Documented By: KHAI Ascorbic Acid (Ascorbic Acid 500 Mg Tablet) 500 mg PO DAILY [facility] Last Admin: 09/07/23 10:30 Dose: 500 mg Documented By: KHAI Baricitinib (Baricitinib 2 Mg Tablet) 4 mg PO Q24H [facility] Stop: 09/17/23 09:01 Last Admin: 09/07/23 10:29 Dose: 4 mg Documented By: KHAI Benzocaine (Throat Lozenge, Medicated Lozenge) 1 lozenge MUCOUS MEM Q2H PRN PRN Reason: Sore Throat Last Admin: 09/07/23 06:27 Dose: 1 lozenge Documented By: LIBBY Benzonatate (Benzonatate 100 Mg Capsule) 200 mg PO TID PRN PRN Reason: Cough Last Admin: 09/07/23 02:21 Dose: 200 mg Documented By: LIBBY Docusate Sodium (Docusate Sodium 100 Mg Capsule) 100 mg PO BID [facility] Last Admin: 09/07/23 10:39 Dose: Not Given Documented By: KHAI Non-Admin Reason: Patient Refused Enoxaparin Sodium (Enoxaparin Sodium 40 Mg/0.4 Ml Syringe) 40 mg SUBCUT Q12H [facility] Last Admin: 09/07/23 10:28 Dose: 40 mg Documented By: KHAI Guaifenesin (Guaifenesin La 600 Mg Tab.Er.12h) 600 mg PO BID [facility] Last Admin: 09/07/23 10:30 Dose: 600 mg Documented By: KHAI Lorazepam (Lorazepam 0.5 Mg Tablet) 0.5 mg PO Q8H PRN PRN Reason: anxiety Last Admin: 09/05/23 21:59 Dose: 0.5 mg Documented By: BRAD Melatonin (Melatonin 3 Mg Tablet) 6 mg PO BEDTIME PRN PRN Reason: Insomnia Methylprednisolone Sodium Succinate (Methylprednisolone Sod Succ 125 Mg/2 Ml Vial) 60 mg IVPUSH Q6H [facility] Last Admin: 09/07/23 10:28 Dose: 60 mg Documented By: KHAI Morphine Sulfate (Morphine Sulfate 4 Mg/Ml Cartridge) 3 mg IVPUSH Q3H PRN; Protocol PRN Reason: respiratory distress Omeprazole (Omeprazole 20 Mg Capsule.Dr) 20 mg PO DAILY@0630 [facility] Last Admin: 09/07/23 06:27 Dose: 20 mg Documented By: LIBBY Ondansetron HCl (Ondansetron Hcl 4 Mg/2 Ml Vial) 4 mg IVPUSH Q8H PRN PRN Reason: Nausea and Vomiting Last Admin: 09/04/23 04:15 Dose: 4 mg Documented By: MADISON Potassium Phos/Sodium Phos (Sodium,Potassium Phosphates Powd.Pack) 1 packet PO BID [facility] Last Admin: 09/07/23 10:29 Dose: 1 packet Documented By: KHAI Sodium Chloride (0.9 % Sodium Chloride Flush 3 Ml Syringe) 3 ml IVFLUSH QSHIFT [facility] Last Admin: 09/07/23 10:28 Dose: 3 ml Documented By: KHAI Zinc Sulfate (Zinc Sulfate 220 Mg Capsule) 220 mg PO BID [facility] Last Admin: 09/07/23 10:29 Dose: 220 mg Documented By: KHAI Labs 09/07/23 07:11 09/07/23 07:11 Labs: Laboratory Results - last 24 hr 09/07/23 07:11 MCV 91.9 MCH 30.9 MCHC 33.6 RDW 13.9 Plt Count 373 MPV 10.3 Immature Gran % (Auto) 4.1 H Neut % (Auto) 89.6 H Lymph % (Auto) 3.1 L [place] % (Auto) 3.0 Eos % (Auto) 0.0 Baso % (Auto) 0.2 Lymph # (Auto) 0.7 L [place] # (Auto) 0.7 Eos # (Auto) 0.0 Baso # (Auto) 0.1 Abs Immat Gran (auto) 0.95 H Absolute Neuts (auto) 20.7 H Absolute Nucleated RBC 0.000 Nucleated RBC % (auto) 0.0 Smear Tech's Comments VERIFIED Anion Gap 15 Estim Creat Clear Calc 140.1 Estimated GFR > 60 Fasting Glucose 145 H Calcium 8.9 Total Bilirubin 0.7 AST 18 ALT 48 H Alkaline Phosphatase 71 Total Protein 6.5 Albumin 3.5 Microbiology Microbiology Results: Microbiology 09/02/23 00:22 Blood Culture - Final Blood - Venous No growth after 5 days. Assessment and Plan (1) COVID-19 virus infection: Status: Acute (2) Sepsis due to COVID-19: Status: Acute Plan 58 year old obese (BMI 35.9) white male with underlying medical history of mild asthma and recent diagnosis of COVID-19 virus infection (he is vaccinated) presents to the emergency room complaining of worsening productive cough, chest pain, fevers, chills and shortness of breath that is worse with exertion. He was diagnosed with COVID-19 infection about a week ago at the onset of his symptoms and saw his PCP who prescribed 5 days of steroids that he completed with transient improvement in his condition. His condition deteriorated and presented to the emergency room for treatment 1. Acute respiratory failure with hypoxemia due to COVID-19 -vanco/Zosyn DC id at id is request -high-flow O2; titrate as tolerated.. Slowly improving 2. Sepsis due to COVID-19 virus.. Resolved -treat as clinically indicated 3. Acute asthma exacerbation - 2/2 COVID-19 infection - treat as above with steroids, Duo Nebs and PRN Albuterol -titrate O2 as tolerated 4. Obesity - BMI of 35.9 - encourage weight loss Full code Lovenox Patient will require ongoing hospitalization for treatment of acute respiratory failure secondary COVID in the need for high-flow oxygen Quality Stroke Does the patient have a stroke diagnosis?: No VTE Prior VTE?: No VTE Risk Level:: Medical - moderate - high VTE Device Contraindication: N/A - Device Ordered VTE Drug Contraindication: N/A - Med Ordered
--- NOTE | 2023-09-07 14:34 | P.CDIM_ITS ---
PROVIDER RESPONSE TEXT: To clarify, the appropriate diagnosis supported by the clinical indicators: Mild intermittent QUERY TEXT: PHYSICIAN'S DOCUMENTATION REQUEST Date of Query: 09/06/2023 05:23 AM EST Patient Name: Chemo Perdomo Admit Date: 09/02/2023 Dear Talon Marie, A review of the medical record indicates additional documentation may be needed. Please review below and update the documentation accordingly. Clinical indicators: PN: Assessment and plan - Acute asthma exacerbation 2/2 Covid-19 infection treat as above with steroids, DuoNebs and PRN Albuterol titrate O2 as tolerated. Based on the above, please clarify in the Progress Notes further specificity regarding the type and a cuity of the asthma: Mild intermittent Mild persistent Moderate persistent Severe persistent Exercise induced Other (explain) Clinically unable to determine (explain) Thank you, Bree Evans, CCS, CDIS Use of terms such as suspected, likely, concern for, or probable (associated with a specific diagnosi s that is being evaluated, monitored, or treated as if it exists) are acceptable and can be coded in the inpatient se tting, when documented at the time of discharge. Please use your independent medical judgment in providing your response. THIS QUERY IS PART OF THE PERMANENT MEDICAL RECORD
[2023-09-08] VITALS (15 sets, daily range): BP systolic 116–147; BP diastolic 62–79; PULSE 77–107; RESP 13–28; TEMP 36.3–37.1; O2SAT 84–96
[2023-09-08] MEDS: Benzonatate 100 MG CAPSULE 200 MG PO ×3 (00:38→23:22)
[2023-09-08] MEDS: Throat Lozenge, Medicated LOZENGE 1 LOZENGE MUCOUS MEM (00:38)
[2023-09-08] MEDS: LORazepam 0.5 MG TABLET PO ×3 (00:41→23:22)
[2023-09-08 03:58] LABS: Glucose, Whole Blood 143 mg/dL (60-115)
[2023-09-08] MEDS: Albuterol Sulfate (0.083%) 2.5 MG/3 ML VIAL.NEB INHALE (04:08)
[2023-09-08] MEDS: Morphine Sulfate 4 MG/ML CARTRIDGE 3 MG IVPUSH (04:14)
[2023-09-08] MEDS: methylPREDNISolone Sod Succ 125 MG/2 ML VIAL 60 MG IVPUSH ×4 (04:15→23:22)
[2023-09-08] MEDS: Albuterol/Iprat 2.5/0.5MG 3 ML AMPUL.NEB INHALE ×3 (07:36→19:59)
[2023-09-08 07:41] LABS: Basophils Absolute Auto 0.1 X10*3/uL (0.0-0.2); Basophils Percent Auto 0.2 % (0-2); Hematocrit 37.8 % (42.0-52.0); Hemoglobin 13.2 g/dl (14.0-18.0); Imm Gran Abs Auto 0.97 X10*3/uL (0.00-0.03); Imm Gran Pct Auto 3.9 % (0.0-0.4); Lymphocytes Absolute Auto 0.6 X10*3/uL (1.2-4.9); Lymphocytes Percent Auto 2.5 % (20-40); MANUAL DIFF FLAG SCAN; Mean Corpuscular HGB Conc 34.9 g/dl (31.0-36.0); Mean Corpuscular Hemoglobin 31.2 pg (27.0-33.0); Mean Corpuscular Volume 89.4 fL (80.0-98.0); Mean Platelet Volume 10.4 fL (9.4-12.4); Monocytes Absolute Auto 0.7 X10*3/uL (0.1-1.2); Monocytes Percent Auto 2.6 % (2-11); Neutrophils Absolute Auto 22.4 x10*3/uL (2.0-8.3); Neutrophils Percent Auto 90.8 % (45-73); Platelet Count 346 X10*3/uL (160-400); Red Blood Count 4.23 X10*6/uL (4.60-5.80); Red Cell Distribution Width 13.7 % (11.0-16.0); SCAN SMEAR FLAG 1; White Blood Count 24.7 X10*3/uL (4.8-10.8)
[2023-09-08 07:55] LABS: Alanine Aminotransferase 41 U/L (0-40); Albumin Level 3.4 g/dL (3.5-5.0); Alkaline Phosphatase 65 U/L (39-117); Anion Gap 13 (12-20); Aspartate Amino Transferase 19 U/L (5-37); Bilirubin Total 0.6 mg/dL (0.0-1.0); Blood Urea Nitrogen 26 mg/dL (9-16); Calcium 8.8 mg/dL (8.4-10.2); Carbon Dioxide 25 mmol/L (22-29); Chloride 102 mmol/L (96-108); Creatinine Clr Calc Pharmacy 150.1; Estimated Glomerular Filt Rate > 60; Glucose Fasting 144 mg/dL (60-99); Potassium 4.5 mmol/L (3.3-5.1); Sodium 135 mmol/L (135-145); Total Protein 6.2 g/dL (6.5-8.0)
[2023-09-08] MEDS: Ascorbic Acid 500 MG TABLET PO ×2 (08:11→08:12)
[2023-09-08] MEDS: guaiFENesin LA 600 MG TAB.ER.12H PO ×2 (08:12→20:38)
[2023-09-08] MEDS: Zinc Sulfate 220 MG CAPSULE PO ×2 (08:12→20:37)
[2023-09-08] MEDS: Sodium,Potassium Phosphates POWD.PACK 1 PACKET PO ×2 (08:12→20:38)
[2023-09-08] MEDS: Enoxaparin Sodium 40 MG/0.4 ML SYRINGE SUBCUT ×2 (08:12→20:39)
[2023-09-08] MEDS: 0.9 % Sodium Chloride Flush 3 ML SYRINGE IVFLUSH ×3 (08:13→23:23)
[2023-09-08 08:19] LABS: SLIDE REVIEW VERIFIED
[2023-09-08 08:33] LABS: C Reactive Protein 3.56 mg/dL (< or = 0.50)
[2023-09-08] MEDS: Furosemide 40 MG/4 ML VIAL IVPUSH (10:52)
--- NOTE | 2023-09-08 13:57 | P.PNIM_ITS ---
Subjective Subjective Date of Service: 09/08/23 Interval History: feels well though still hypoxic requiring FiO2 100% on HFNC no chest pain no cough Review of Systems Review of Systems: Yes all other systems are reviewed and are negative Physical Exam 2 Vital Signs: Vital Signs: Last Vital Signs Temp 98.0 F 09/08/23 12:00 Pulse 98 09/08/23 12:00 Resp 16 09/08/23 12:00 BP 116/65 09/08/23 12:00 Pulse Ox 91 L 09/08/23 12:00 O2 Del Method High Flow Nasal C annula 09/08/23 12:00 O2 Flow Rate 50 09/08/23 12:00 FiO2 95 09/08/23 12:00 BMI result Body Mass Index 39.2 Gen: in no acute distress HEENT: sclera anicteric, moist mucus membranes Neck: supple Lungs: diminished Heart: regular rate and rhythm, no murmurs Abd: soft, non-tender, non-distended Ext: no edema Skin: warm/well-perfused Neuro: alert and oriented x3, no focal findings Psych: appropriate affect Objective Data Active Medications Acetaminophen (Acetaminophen 325 Mg Tablet) 650 mg PO Q6H PRN PRN Reason: Pain, Mild (Pain Scale 1-3) Al Hydroxide/Mg Hydroxide (Magnesium Hydrox/Alum Hydrox 30 Ml Oral.Susp) 30 ml PO Q4H PRN PRN Reason: Heartburn/Nausea Albuterol Sulfate (Albuterol Sulfate (0.083%) 2.5 Mg/3 Ml Vial.Neb) 2.5 mg INHALE Q4H PRN PRN Reason: Shortness of Breath/Wheezing Last Admin: 09/08/23 04:08 Dose: 2.5 mg Documented By: CINDA Albuterol/Ipratropium (Albuterol/Iprat 2.5/0.5mg 3 Ml Ampul.Neb) 3 ml INHALE RQ6H WHILE AWAKE [facility] Last Admin: 09/08/23 07:36 Dose: 3 ml Documented By: JOHN Ascorbic Acid (Ascorbic Acid 500 Mg Tablet) 500 mg PO DAILY [facility] Last Admin: 09/08/23 08:11 Dose: 500 mg Documented By: PERRY Ascorbic Acid (Ascorbic Acid 500 Mg Tablet) 500 mg PO DAILY [facility] Last Admin: 09/08/23 08:12 Dose: 500 mg Documented By: PERRY Baricitinib (Baricitinib 2 Mg Tablet) 4 mg PO Q24H [facility] Stop: 09/17/23 09:01 Last Admin: 09/08/23 08:12 Dose: 4 mg Documented By: PERRY Benzocaine (Throat Lozenge, Medicated Lozenge) 1 lozenge MUCOUS MEM Q2H PRN PRN Reason: Sore Throat Last Admin: 09/08/23 00:38 Dose: 1 lozenge Documented By: TEREZA Benzonatate (Benzonatate 100 Mg Capsule) 200 mg PO TID PRN PRN Reason: Cough Last Admin: 09/08/23 00:38 Dose: 200 mg Documented By: TEREZA Docusate Sodium (Docusate Sodium 100 Mg Capsule) 100 mg PO BID [facility] Last Admin: 09/08/23 08:12 Dose: Not Given Documented By: PERRY Non-Admin Reason: Patient Refused Enoxaparin Sodium (Enoxaparin Sodium 40 Mg/0.4 Ml Syringe) 40 mg SUBCUT Q12H [facility] Last Admin: 09/08/23 08:12 Dose: 40 mg Documented By: PERRY Guaifenesin (Guaifenesin La 600 Mg Tab.Er.12h) 600 mg PO BID [facility] Last Admin: 09/08/23 08:12 Dose: 600 mg Documented By: PERRY Lorazepam (Lorazepam 0.5 Mg Tablet) 0.5 mg PO Q8H PRN PRN Reason: anxiety Last Admin: 09/08/23 00:41 Dose: 0.5 mg Documented By: TEREZA Melatonin (Melatonin 3 Mg Tablet) 6 mg PO BEDTIME PRN PRN Reason: Insomnia Methylprednisolone Sodium Succinate (Methylprednisolone Sod Succ 125 Mg/2 Ml Vial) 60 mg IVPUSH Q6H [facility] Last Admin: 09/08/23 10:33 Dose: 60 mg Documented By: PERRY Morphine Sulfate (Morphine Sulfate 4 Mg/Ml Cartridge) 3 mg IVPUSH Q3H PRN; Protocol PRN Reason: respiratory distress Last Admin: 09/08/23 04:14 Dose: 3 mg Documented By: TEREZA Omeprazole (Omeprazole 20 Mg Capsule.) 20 mg PO DAILY@0630 [facility] Last Admin: 09/08/23 04:23 Dose: Not Given Documented By: TEREZA Non-Admin Reason: Patient Refused Ondansetron HCl (Ondansetron Hcl 4 Mg/2 Ml Vial) 4 mg IVPUSH Q8H PRN PRN Reason: Nausea and Vomiting Last Admin: 09/04/23 04:15 Dose: 4 mg Documented By: MADISON Potassium Phos/Sodium Phos (Sodium,Potassium Phosphates Powd.Pack) 1 packet PO BID [facility] Last Admin: 09/08/23 08:12 Dose: 1 packet Documented By: PERRY Sodium Chloride (0.9 % Sodium Chloride Flush 3 Ml Syringe) 3 ml IVFLUSH QSHIFT [facility] Last Admin: 09/08/23 08:13 Dose: 3 ml Documented By: PRERY Zinc Sulfate (Zinc Sulfate 220 Mg Capsule) 220 mg PO BID [facility] Last Admin: 09/08/23 08:12 Dose: 220 mg Documented By: PERRY Labs 09/08/23 07:13 09/08/23 07:13 Labs: Laboratory Results - last 24 hr 09/08/23 09/08/23 03:53 07:13 MCV 89.4 MCH 31.2 MCHC 34.9 RDW 13.7 Plt Count 346 MPV 10.4 Immature Gran % (Auto) 3.9 H Neut % (Auto) 90.8 H Lymph % (Auto) 2.5 L [place] % (Auto) 2.6 Eos % (Auto) 0.0 Baso % (Auto) 0.2 Lymph # (Auto) 0.6 L [place] # (Auto) 0.7 Eos # (Auto) 0.0 Baso # (Auto) 0.1 Abs Immat Gran (auto) 0.97 H Absolute Neuts (auto) 22.4 H Absolute Nucleated RBC 0.000 Nucleated RBC % (auto) 0.0 Smear Tech's Comments VERIFIED Anion Gap 13 Estim Creat Clear Calc 150.1 Estimated GFR > 60 POC Glucose 143 H Fasting Glucose 144 H Calcium 8.8 Total Bilirubin 0.6 AST 19 ALT 41 H Alkaline Phosphatase 65 C-Reactive Protein 3.56 H Total Protein 6.2 L Albumin 3.4 L Assessment and Plan (1) COVID-19 virus infection: Status: Acute (2) Sepsis due to COVID-19: Status: Acute Plan d7 58yo M with asthma, recently diagnosed with Covid-19 admitted with hypoxia AHRF and viral sepsis due to severe Covid-19 infection - ID consulted, on baricitinib 09/04-09/17/23, also on methylprednisolone 60 mg q6h, wean HFNC as tolerated - no signs of bacterial infection, vanco + Zosyn discontinued - CRP improving, CT A/P 09/03 negative for PE - give 1 dose furosemide IV acute asthma exac - steroids as above, standing/prn nebs VTE ppx - LMWH dispo - will need STR In my clinical judgment, the patient requires continued inpatient hospitalization for the following reasons: hypoxia Total time managing care of this patient today: 35 minutes. Quality Stroke Does the patient have a stroke diagnosis?: No VTE Prior VTE?: No VTE Risk Level:: Medical - moderate - high VTE Device Contraindication: N/A - Device Ordered VTE Drug Contraindication: N/A - Med Ordered
[2023-09-09] VITALS (16 sets, daily range): BP systolic 114–174; BP diastolic 65–79; PULSE 68–104; RESP 16–22; TEMP 36.3–37; O2SAT 90–96
[2023-09-09] MEDS: Albuterol Sulfate (0.083%) 2.5 MG/3 ML VIAL.NEB INHALE (03:38)
[2023-09-09] MEDS: methylPREDNISolone Sod Succ 125 MG/2 ML VIAL 60 MG IVPUSH ×4 (05:59→23:07)
[2023-09-09] MEDS: Omeprazole 20 MG CAPSULE.DR PO (06:01)
[2023-09-09] MEDS: Albuterol/Iprat 2.5/0.5MG 3 ML AMPUL.NEB INHALE ×3 (07:57→19:09)
[2023-09-09 08:10] LABS: Hematocrit 40.6 % (42.0-52.0); Hemoglobin 13.8 g/dl (14.0-18.0); Mean Corpuscular Hemoglobin 31.4 pg (27.0-33.0); Mean Corpuscular Volume 92.5 fL (80.0-98.0); Mean Platelet Volume 10.8 fL (9.4-12.4); Platelet Count 354 X10*3/uL (160-400); Red Blood Count 4.39 X10*6/uL (4.60-5.80); Red Cell Distribution Width 13.6 % (11.0-16.0); White Blood Count 24.5 X10*3/uL (4.8-10.8)
[2023-09-09 08:23] LABS: D Dimer High Sensitivity 190 NG/ML
[2023-09-09 08:24] LABS: Anion Gap 15 (12-20); Blood Urea Nitrogen 35 mg/dL (9-16); Calcium 8.8 mg/dL (8.4-10.2); Carbon Dioxide 23 mmol/L (22-29); Chloride 100 mmol/L (96-108); Creatinine Clr Calc Pharmacy 143.9; Estimated Glomerular Filt Rate > 60; Glucose Random 142 mg/dL (60-115); Magnesium 2.4 mg/dL (1.6-2.6); Potassium 4.5 mmol/L (3.3-5.1); Sodium 133 mmol/L (135-145)
[2023-09-09 08:36] LABS: B Type Natriuretic Peptide 17 pg/mL (<100)
[2023-09-09] MEDS: Sodium,Potassium Phosphates POWD.PACK 1 PACKET PO ×2 (08:50→20:49)
[2023-09-09] MEDS: Enoxaparin Sodium 40 MG/0.4 ML SYRINGE SUBCUT ×2 (08:50→20:49)
[2023-09-09] MEDS: 0.9 % Sodium Chloride Flush 3 ML SYRINGE IVFLUSH ×3 (08:50→20:49)
[2023-09-09] MEDS: guaiFENesin LA 600 MG TAB.ER.12H PO ×2 (08:50→20:49)
[2023-09-09] MEDS: Zinc Sulfate 220 MG CAPSULE PO ×2 (08:50→20:49)
[2023-09-09] MEDS: Ascorbic Acid 500 MG TABLET PO (08:50)
--- NOTE | 2023-09-09 09:31 | HO.PM.IMPN ---
Subjective Subjective Date of Service: 09/09/23 Interval History: Coughs with minimal movement. Remains on 100% fiO2 HFNC 50 Lpm with SaO2 maintaining 91-94%. Trying to stay positive. Review of Systems Review of Systems: Yes all other systems are reviewed and are negative Physical Exam Vital Signs: Vital Signs: Last Vital Signs Temp 97.6 F 09/09/23 07:07 Pulse 90 09/09/23 07:59 Resp 20 09/09/23 08:00 BP 124/75 09/09/23 07:07 Pulse Ox 95 09/09/23 07:07 O2 Del Method High Flow Nasal C annula 09/09/23 07:07 O2 Flow Rate 50 09/09/23 07:07 FiO2 96 09/09/23 07:07 BMI result Body Mass Index 39.2 Gen: in no acute distress HEENT: sclera anicteric, moist mucus membranes Neck: supple Lungs: diminished Heart: regular rate and rhythm, no murmurs Abd: soft, non-tender, non-distended Ext: no edema Skin: warm/well-perfused Neuro: alert and oriented x3, no focal findings Psych: appropriate affect Objective Data Active Medications Acetaminophen (Acetaminophen 325 Mg Tablet) 650 mg PO Q6H PRN PRN Reason: Pain, Mild (Pain Scale 1-3) Al Hydroxide/Mg Hydroxide (Magnesium Hydrox/Alum Hydrox 30 Ml Oral.Susp) 30 ml PO Q4H PRN PRN Reason: Heartburn/Nausea Albuterol Sulfate (Albuterol Sulfate (0.083%) 2.5 Mg/3 Ml Vial.Neb) 2.5 mg INHALE Q4H PRN PRN Reason: Shortness of Breath/Wheezing Last Admin: 09/09/23 03:38 Dose: 2.5 mg Documented By: BLUE Albuterol/Ipratropium (Albuterol/Iprat 2.5/0.5mg 3 Ml Ampul.Neb) 3 ml INHALE RQ6H WHILE AWAKE [facility] Last Admin: 09/09/23 07:57 Dose: 3 ml Documented By: JOHN Ascorbic Acid (Ascorbic Acid 500 Mg Tablet) 500 mg PO DAILY [facility] Last Admin: 09/09/23 08:50 Dose: 500 mg Documented By: EM Ascorbic Acid (Ascorbic Acid 500 Mg Tablet) 500 mg PO DAILY [facility] Last Admin: 09/09/23 08:47 Dose: Not Given Documented By: EM Non-Admin Reason: Duplicate Order Baricitinib (Baricitinib 2 Mg Tablet) 4 mg PO Q24H [facility] Stop: 09/17/23 09:01 Last Admin: 09/09/23 08:50 Dose: 4 mg Documented By: EM Benzocaine (Throat Lozenge, Medicated Lozenge) 1 lozenge MUCOUS MEM Q2H PRN PRN Reason: Sore Throat Last Admin: 09/08/23 00:38 Dose: 1 lozenge Documented By: ANTDEENA Benzonatate (Benzonatate 100 Mg Capsule) 200 mg PO TID PRN PRN Reason: Cough Last Admin: 09/08/23 23:22 Dose: 200 mg Documented By: DICK Docusate Sodium (Docusate Sodium 100 Mg Capsule) 100 mg PO BID [facility] Last Admin: 09/09/23 08:51 Dose: Not Given Documented By: EM Non-Admin Reason: Patient Refused Enoxaparin Sodium (Enoxaparin Sodium 40 Mg/0.4 Ml Syringe) 40 mg SUBCUT Q12H [facility] Last Admin: 09/09/23 08:50 Dose: 40 mg Documented By: EM Guaifenesin (Guaifenesin La 600 Mg Tab.Er.12h) 600 mg PO BID [facility] Last Admin: 09/09/23 08:50 Dose: 600 mg Documented By: EM Lorazepam (Lorazepam 0.5 Mg Tablet) 0.5 mg PO Q8H PRN PRN Reason: anxiety Last Admin: 09/08/23 23:22 Dose: 0.5 mg Documented By: DICK Melatonin (Melatonin 3 Mg Tablet) 6 mg PO BEDTIME PRN PRN Reason: Insomnia Methylprednisolone Sodium Succinate (Methylprednisolone Sod Succ 125 Mg/2 Ml Vial) 60 mg IVPUSH Q6H [facility] Last Admin: 09/09/23 05:59 Dose: 60 mg Documented By: DICK Morphine Sulfate (Morphine Sulfate 4 Mg/Ml Cartridge) 3 mg IVPUSH Q3H PRN; Protocol PRN Reason: respiratory distress Last Admin: 09/08/23 04:14 Dose: 3 mg Documented By: TEREZA Omeprazole (Omeprazole 20 Mg Capsule.) 20 mg PO DAILY@0630 [facility] Last Admin: 09/09/23 06:01 Dose: 20 mg Documented By: DICK Ondansetron HCl (Ondansetron Hcl 4 Mg/2 Ml Vial) 4 mg IVPUSH Q8H PRN PRN Reason: Nausea and Vomiting Last Admin: 09/04/23 04:15 Dose: 4 mg Documented By: MADISON Potassium Phos/Sodium Phos (Sodium,Potassium Phosphates Powd.Pack) 1 packet PO BID [facility] Last Admin: 09/09/23 08:50 Dose: 1 packet Documented By: EM Sodium Chloride (0.9 % Sodium Chloride Flush 3 Ml Syringe) 3 ml IVFLUSH QSHIFT [facility] Last Admin: 09/09/23 08:50 Dose: 3 ml Documented By: EM Zinc Sulfate (Zinc Sulfate 220 Mg Capsule) 220 mg PO BID [facility] Last Admin: 09/09/23 08:50 Dose: 220 mg Documented By: EM Labs 09/09/23 08:00 09/09/23 07:59 Labs: Laboratory Results - last 24 hr 09/09/23 09/09/23 07:59 08:00 MCV 92.5 MCH 31.4 MCHC 34.0 RDW 13.6 Plt Count 354 MPV 10.8 Absolute Nucleated RBC 0.000 Nucleated RBC % (auto) 0.0 D-Dimer High Sensitivty 190 Anion Gap 15 Estim Creat Clear Calc 143.9 Estimated GFR > 60 Random Glucose 142 H Calcium 8.8 Magnesium 2.4 B-Natriuretic Peptide 17 Assessment and Plan (1) COVID-19 virus infection: Status: Acute (2) Sepsis due to COVID-19: Status: Acute Plan d8 58yo M with asthma, recently diagnosed with Covid-19 08/26/23 admitted with hypoxia AHRF, acute asthma exacerbation, and viral sepsis due to severe Covid-19 infection - ID consulted, on baricitinib 09/04-09/17/23, also on methylprednisolone 60 mg q6h to start tapering when clearly improving, wean HFNC as tolerated - no signs of bacterial infection, vanco + Zosyn discontinued - CRP improving, CT A/P 09/03 negative for PE - standing/prn nebs VTE ppx - LMWH dispo - will likely need STR In my clinical judgment, the patient requires continued inpatient hospitalization for the following reasons: hypoxia Total time managing care of this patient today: 35 minutes. Quality Stroke Does the patient have a stroke diagnosis?: No VTE Prior VTE?: No VTE Risk Level:: Medical - moderate - high VTE Device Contraindication: N/A - Device Ordered VTE Drug Contraindication: N/A - Med Ordered
[2023-09-09] MEDS: Benzonatate 100 MG CAPSULE 200 MG PO (12:07)
--- NOTE | 2023-09-09 14:20 | MHC.CM.PN ---
EMR REVIEWED, PT REMAINS ON HI FLOW O2, NO PLAN FOR DC AT THIS TIME, ANTIC PT WILL REMAIN INPT THROUGH W/[facility], CM WILL CONT TO FOLLOW DC NEEDS.
[2023-09-09] MEDS: guaiFENesin DM 100/10/5 ML 5 ML SYRUP PO ×2 (18:25→23:08)
[2023-09-09] MEDS: Docusate Sodium 100 MG CAPSULE PO (20:49)
[2023-09-09] MEDS: LORazepam 0.5 MG TABLET PO (21:00)
[2023-09-09] MEDS: Melatonin 3 MG TABLET 6 MG PO (23:07)
[2023-09-10] VITALS (14 sets, daily range): BP systolic 103–132; BP diastolic 65–82; PULSE 76–105; RESP 17–22; TEMP 36.1–37.1; O2SAT 90–97
[2023-09-10] MEDS: methylPREDNISolone Sod Succ 125 MG/2 ML VIAL 60 MG IVPUSH ×3 (04:05→16:30)
[2023-09-10] MEDS: Benzonatate 100 MG CAPSULE 200 MG PO ×2 (04:06→16:29)
[2023-09-10] MEDS: Omeprazole 20 MG CAPSULE.DR PO (05:32)
[2023-09-10] MEDS: Albuterol/Iprat 2.5/0.5MG 3 ML AMPUL.NEB INHALE ×3 (07:54→19:36)
[2023-09-10] MEDS: guaiFENesin LA 600 MG TAB.ER.12H PO ×2 (09:21→20:11)
[2023-09-10] MEDS: Sodium,Potassium Phosphates POWD.PACK 1 PACKET PO ×2 (09:21→20:11)
[2023-09-10] MEDS: Ascorbic Acid 500 MG TABLET PO ×2 (09:21→09:26)
[2023-09-10] MEDS: guaiFENesin DM 100/10/5 ML 5 ML SYRUP PO ×2 (09:23→13:23)
[2023-09-10] MEDS: Enoxaparin Sodium 40 MG/0.4 ML SYRINGE SUBCUT ×2 (09:25→20:11)
[2023-09-10] MEDS: Zinc Sulfate 220 MG CAPSULE PO ×2 (09:26→20:11)
[2023-09-10] MEDS: 0.9 % Sodium Chloride Flush 3 ML SYRINGE IVFLUSH ×3 (09:26→20:12)
--- NOTE | 2023-09-10 10:23 | HO.PM.IMPN ---
Subjective Subjective Date of Service: 09/10/23 Interval History: No dyspnea at rest but with any movement becomes extremely dyspneic SaO2 maintaining around 95% no fever Review of Systems Review of Systems: Yes all other systems are reviewed and are negative Physical Exam Vital Signs: Vital Signs: Last Vital Signs Temp 98.7 F 09/10/23 07:21 Pulse 84 09/10/23 08:03 Resp 22 H 09/10/23 08:03 BP 128/75 09/10/23 07:21 Pulse Ox 97 09/10/23 07:21 O2 Del Method High Flow Nasal C annula 09/10/23 07:21 O2 Flow Rate 50 09/10/23 07:21 FiO2 30 09/10/23 07:21 BMI result Body Mass Index 39.2 Gen: in no acute distress HEENT: sclera anicteric, moist mucus membranes Neck: supple Lungs: diminished Heart: regular rate and rhythm, no murmurs Abd: soft, non-tender, non-distended Ext: no edema Skin: warm/well-perfused Neuro: alert and oriented x3, no focal findings Psych: appropriate affect Objective Data Active Medications Acetaminophen (Acetaminophen 325 Mg Tablet) 650 mg PO Q6H PRN PRN Reason: Pain, Mild (Pain Scale 1-3) Al Hydroxide/Mg Hydroxide (Magnesium Hydrox/Alum Hydrox 30 Ml Oral.Susp) 30 ml PO Q4H PRN PRN Reason: Heartburn/Nausea Albuterol Sulfate (Albuterol Sulfate (0.083%) 2.5 Mg/3 Ml Vial.Neb) 2.5 mg INHALE Q4H PRN PRN Reason: Shortness of Breath/Wheezing Last Admin: 09/09/23 03:38 Dose: 2.5 mg Documented By: BLUE Albuterol/Ipratropium (Albuterol/Iprat 2.5/0.5mg 3 Ml Ampul.Neb) 3 ml INHALE RQ6H WHILE AWAKE [facility] Last Admin: 09/10/23 07:54 Dose: 3 ml Documented By: JESSICA Ascorbic Acid (Ascorbic Acid 500 Mg Tablet) 500 mg PO DAILY [facility] Last Admin: 09/10/23 09:21 Dose: 500 mg Documented By: ASHANTI Ascorbic Acid (Ascorbic Acid 500 Mg Tablet) 500 mg PO DAILY [facility] Last Admin: 09/10/23 09:26 Dose: 500 mg Documented By: ASHANTI Baricitinib (Baricitinib 2 Mg Tablet) 4 mg PO Q24H [facility] Stop: 09/17/23 09:01 Last Admin: 09/10/23 09:20 Dose: 4 mg Documented By: ASHANTI Benzocaine (Throat Lozenge, Medicated Lozenge) 1 lozenge MUCOUS MEM Q2H PRN PRN Reason: Sore Throat Last Admin: 09/08/23 00:38 Dose: 1 lozenge Documented By: ANTOIC Benzonatate (Benzonatate 100 Mg Capsule) 200 mg PO TID PRN PRN Reason: Cough Last Admin: 09/10/23 04:06 Dose: 200 mg Documented By: SUMAYA Docusate Sodium (Docusate Sodium 100 Mg Capsule) 100 mg PO BID [facility] Last Admin: 09/10/23 09:21 Dose: Not Given Documented By: ASHANTI Non-Admin Reason: Patient Refused Enoxaparin Sodium (Enoxaparin Sodium 40 Mg/0.4 Ml Syringe) 40 mg SUBCUT Q12H [facility] Last Admin: 09/10/23 09:25 Dose: 40 mg Documented By: ASHANTI Guaifenesin (Guaifenesin La 600 Mg Tab.Er.12h) 600 mg PO BID [facility] Last Admin: 09/10/23 09:21 Dose: 600 mg Documented By: ASHANTI Guaifenesin/Dextromethorphan (Guaifenesin Dm 100/10/5 Ml 5 Ml Syrup) 5 ml PO Q4H PRN PRN Reason: cough Last Admin: 09/10/23 09:23 Dose: 5 ml Documented By: ASHANTI Lorazepam (Lorazepam 0.5 Mg Tablet) 0.5 mg PO Q8H PRN PRN Reason: anxiety Last Admin: 09/09/23 21:00 Dose: 0.5 mg Documented By: SUMAYA Melatonin (Melatonin 3 Mg Tablet) 6 mg PO BEDTIME PRN PRN Reason: Insomnia Last Admin: 09/09/23 23:07 Dose: 6 mg Documented By: SUMAYA Methylprednisolone Sodium Succinate (Methylprednisolone Sod Succ 125 Mg/2 Ml Vial) 60 mg IVPUSH Q6H [facility] Last Admin: 09/10/23 09:26 Dose: 60 mg Documented By: ASHANTI Morphine Sulfate (Morphine Sulfate 4 Mg/Ml Cartridge) 3 mg IVPUSH Q3H PRN; Protocol PRN Reason: respiratory distress Last Admin: 09/08/23 04:14 Dose: 3 mg Documented By: TEREZA Omeprazole (Omeprazole 20 Mg Capsule.) 20 mg PO DAILY@0630 [facility] Last Admin: 09/10/23 05:32 Dose: 20 mg Documented By: SUMAYA Ondansetron HCl (Ondansetron Hcl 4 Mg/2 Ml Vial) 4 mg IVPUSH Q8H PRN PRN Reason: Nausea and Vomiting Last Admin: 09/04/23 04:15 Dose: 4 mg Documented By: MADISON Potassium Phos/Sodium Phos (Sodium,Potassium Phosphates Powd.Pack) 1 packet PO BID [facility] Last Admin: 09/10/23 09:21 Dose: 1 packet Documented By: ASHANTI Sodium Chloride (0.9 % Sodium Chloride Flush 3 Ml Syringe) 3 ml IVFLUSH QSHIFT [facility] Last Admin: 09/10/23 09:26 Dose: 3 ml Documented By: ASHANTI Zinc Sulfate (Zinc Sulfate 220 Mg Capsule) 220 mg PO BID [facility] Last Admin: 09/10/23 09:26 Dose: 220 mg Documented By: ASHANTI Labs 09/09/23 08:00 09/09/23 07:59 Assessment and Plan (1) COVID-19 virus infection: Status: Acute (2) Sepsis due to COVID-19: Status: Acute Plan d9 58yo M with asthma, recently diagnosed with Covid-19 08/26/23 admitted with hypoxia AHRF, acute asthma exacerbation, and viral sepsis due to severe Covid-19 infection - ID consulted, on baricitinib 09/04-09/17/23, also on methylprednisolone 60 mg q6h. Will start tapering methylprednisolone very gradually. - start decreasing fiO2 on HFNC as tolerated - no signs of bacterial infection, vanco + Zosyn discontinued - CRP improving, CT A/P 09/03 negative for PE - standing/prn nebs VTE ppx - LMWH dispo - will likely need STR In my clinical judgment, the patient requires continued inpatient hospitalization for the following reasons: hypoxia Total time managing care of this patient today: 35 minutes. Quality Stroke Does the patient have a stroke diagnosis?: No VTE Prior VTE?: No VTE Risk Level:: Medical - moderate - high VTE Device Contraindication: N/A - Device Ordered VTE Drug Contraindication: N/A - Med Ordered
[2023-09-11] VITALS (12 sets, daily range): BP systolic 115–130; BP diastolic 66–85; PULSE 75–102; RESP 17–20; TEMP 36–36.6; O2SAT 90–97
[2023-09-11] MEDS: Melatonin 3 MG TABLET 6 MG PO (00:05)
[2023-09-11] MEDS: methylPREDNISolone Sod Succ 125 MG/2 ML VIAL 60 MG IVPUSH ×3 (00:05→21:29)
[2023-09-11] MEDS: Benzonatate 100 MG CAPSULE 200 MG PO ×3 (00:05→16:31)
[2023-09-11] MEDS: Omeprazole 20 MG CAPSULE.DR PO (05:16)
[2023-09-11] MEDS: Acetaminophen 325 MG TABLET 650 MG PO (05:37)
[2023-09-11 07:25] LABS: Hematocrit 37.9 % (42.0-52.0); Hemoglobin 12.9 g/dl (14.0-18.0); Mean Corpuscular Hemoglobin 30.6 pg (27.0-33.0); Mean Platelet Volume 10.5 fL (9.4-12.4); Platelet Count 334 X10*3/uL (160-400); Red Blood Count 4.21 X10*6/uL (4.60-5.80); Red Cell Distribution Width 13.2 % (11.0-16.0)
[2023-09-11 08:02] LABS: Anion Gap 14 (12-20); Blood Urea Nitrogen 30 mg/dL (9-16); C Reactive Protein 0.75 mg/dL (< or = 0.50); Calcium 8.5 mg/dL (8.4-10.2); Carbon Dioxide 24 mmol/L (22-29); Chloride 99 mmol/L (96-108); Creatinine Clr Calc Pharmacy 143.9; Estimated Glomerular Filt Rate > 60; Glucose Random 141 mg/dL (60-115); Potassium 4.9 mmol/L (3.3-5.1); Sodium 132 mmol/L (135-145)
[2023-09-11 08:18] LABS: Procalcitonin 0.05 ng/mL
[2023-09-11] MEDS: Albuterol/Iprat 2.5/0.5MG 3 ML AMPUL.NEB INHALE ×3 (08:21→20:13)
[2023-09-11] MEDS: Ascorbic Acid 500 MG TABLET PO ×2 (08:42)
[2023-09-11] MEDS: 0.9 % Sodium Chloride Flush 3 ML SYRINGE IVFLUSH ×3 (08:43→21:30)
[2023-09-11] MEDS: guaiFENesin LA 600 MG TAB.ER.12H PO ×2 (08:43→21:29)
[2023-09-11] MEDS: Zinc Sulfate 220 MG CAPSULE PO ×2 (08:44→21:29)
[2023-09-11] MEDS: Sodium,Potassium Phosphates POWD.PACK 1 PACKET PO ×2 (08:44→21:30)
[2023-09-11] MEDS: Enoxaparin Sodium 40 MG/0.4 ML SYRINGE SUBCUT ×2 (08:44→21:29)
--- NOTE | 2023-09-11 09:09 | P.PNIM_ITS ---
Subjective Subjective Date of Service: 09/11/23 Interval History: exertional dyspnea improved continues to have dry hacking cough Review of Systems Review of Systems: Yes all other systems are reviewed and are negative Physical Exam 2 Vital Signs: Vital Signs: Last Vital Signs Temp 97.4 F 09/11/23 07:28 Pulse 81 09/11/23 08:24 Resp 20 09/11/23 08:24 BP 115/68 09/11/23 07:28 Pulse Ox 97 09/11/23 07:28 O2 Del Method High Flow Nasal C annula 09/11/23 07:28 O2 Flow Rate 15 09/11/23 07:28 FiO2 85 09/11/23 07:28 BMI result Body Mass Index 39.2 Gen: in no acute distress HEENT: sclera anicteric, moist mucus membranes Neck: supple Lungs: diminished Heart: regular rate and rhythm, no murmurs Abd: soft, non-tender, non-distended Ext: no edema Skin: warm/well-perfused Neuro: alert and oriented x3, no focal findings Psych: appropriate affect Objective Data Active Medications Acetaminophen (Acetaminophen 325 Mg Tablet) 650 mg PO Q6H PRN PRN Reason: Pain, Mild (Pain Scale 1-3) Last Admin: 09/11/23 05:37 Dose: 650 mg Documented By: SUMAYA Al Hydroxide/Mg Hydroxide (Magnesium Hydrox/Alum Hydrox 30 Ml Oral.Susp) 30 ml PO Q4H PRN PRN Reason: Heartburn/Nausea Albuterol Sulfate (Albuterol Sulfate (0.083%) 2.5 Mg/3 Ml Vial.Neb) 2.5 mg INHALE Q4H PRN PRN Reason: Shortness of Breath/Wheezing Last Admin: 09/09/23 03:38 Dose: 2.5 mg Documented By: BLUE Albuterol/Ipratropium (Albuterol/Iprat 2.5/0.5mg 3 Ml Ampul.Neb) 3 ml INHALE RQ6H WHILE AWAKE [facility] Last Admin: 09/11/23 08:21 Dose: 3 ml Documented By: JESSICA Ascorbic Acid (Ascorbic Acid 500 Mg Tablet) 500 mg PO DAILY [facility] Last Admin: 09/11/23 08:42 Dose: 500 mg Documented By: ASHANTI Ascorbic Acid (Ascorbic Acid 500 Mg Tablet) 500 mg PO DAILY [facility] Last Admin: 09/11/23 08:42 Dose: 500 mg Documented By: ASHANTI Baricitinib (Baricitinib 2 Mg Tablet) 4 mg PO Q24H [facility] Stop: 09/17/23 09:01 Last Admin: 09/11/23 08:42 Dose: 4 mg Documented By: ASHANTI Benzocaine (Throat Lozenge, Medicated Lozenge) 1 lozenge MUCOUS MEM Q2H PRN PRN Reason: Sore Throat Last Admin: 09/08/23 00:38 Dose: 1 lozenge Documented By: ANTOIC Benzonatate (Benzonatate 100 Mg Capsule) 200 mg PO TID PRN PRN Reason: Cough Last Admin: 09/11/23 08:41 Dose: 200 mg Documented By: ASHANTI Docusate Sodium (Docusate Sodium 100 Mg Capsule) 100 mg PO BID [facility] Last Admin: 09/11/23 08:47 Dose: Not Given Documented By: ASHANTI Non-Admin Reason: Patient Refused Enoxaparin Sodium (Enoxaparin Sodium 40 Mg/0.4 Ml Syringe) 40 mg SUBCUT Q12H [facility] Last Admin: 09/11/23 08:44 Dose: 40 mg Documented By: ASHANTI Guaifenesin (Guaifenesin La 600 Mg Tab.Er.12h) 600 mg PO BID [facility] Last Admin: 09/11/23 08:43 Dose: 600 mg Documented By: ASHANTI Guaifenesin/Dextromethorphan (Guaifenesin Dm 100/10/5 Ml 5 Ml Syrup) 5 ml PO Q4H PRN PRN Reason: cough Last Admin: 09/10/23 13:23 Dose: 5 ml Documented By: ASHANTI Lorazepam (Lorazepam 0.5 Mg Tablet) 0.5 mg PO Q8H PRN PRN Reason: anxiety Last Admin: 09/09/23 21:00 Dose: 0.5 mg Documented By: SUMAYA Melatonin (Melatonin 3 Mg Tablet) 6 mg PO BEDTIME PRN PRN Reason: Insomnia Last Admin: 09/11/23 00:05 Dose: 6 mg Documented By: SUMAYA Methylprednisolone Sodium Succinate (Methylprednisolone Sod Succ 125 Mg/2 Ml Vial) 60 mg IVPUSH Q8H [facility] Last Admin: 09/11/23 08:43 Dose: 60 mg Documented By: ASHANTI Morphine Sulfate (Morphine Sulfate 4 Mg/Ml Cartridge) 3 mg IVPUSH Q3H PRN; Protocol PRN Reason: respiratory distress Last Admin: 09/08/23 04:14 Dose: 3 mg Documented By: TEREZA Omeprazole (Omeprazole 20 Mg Capsule.Dr) 20 mg PO DAILY@0630 [facility] Last Admin: 09/11/23 05:16 Dose: 20 mg Documented By: SUMAYA Ondansetron HCl (Ondansetron Hcl 4 Mg/2 Ml Vial) 4 mg IVPUSH Q8H PRN PRN Reason: Nausea and Vomiting Last Admin: 09/04/23 04:15 Dose: 4 mg Documented By: MADISON Potassium Phos/Sodium Phos (Sodium,Potassium Phosphates Powd.Pack) 1 packet PO BID [facility] Last Admin: 09/11/23 08:44 Dose: 1 packet Documented By: ASHANTI Sodium Chloride (0.9 % Sodium Chloride Flush 3 Ml Syringe) 3 ml IVFLUSH QSHIFT [facility] Last Admin: 09/11/23 08:43 Dose: 3 ml Documented By: ASHANTI Zinc Sulfate (Zinc Sulfate 220 Mg Capsule) 220 mg PO BID [facility] Last Admin: 09/11/23 08:44 Dose: 220 mg Documented By: ASHANTI Labs 09/11/23 07:08 09/11/23 07:08 Labs: Laboratory Results - last 24 hr 09/11/23 07:08 MCV 90.0 MCH 30.6 MCHC 34.0 RDW 13.2 Plt Count 334 MPV 10.5 Absolute Nucleated RBC 0.000 Nucleated RBC % (auto) 0.0 Anion Gap 14 Estim Creat Clear Calc 143.9 Estimated GFR > 60 Random Glucose 141 H Calcium 8.5 C-Reactive Protein 0.75 H Procalcitonin 0.05 Assessment and Plan (1) COVID-19 virus infection: Status: Acute (2) Sepsis due to COVID-19: Status: Acute Plan d10 58yo M with asthma, recently diagnosed with Covid-19 08/26/23 admitted with hypoxia AHRF, acute asthma exacerbation, and viral sepsis due to severe Covid-19 infection - ID consulted, on baricitinib 09/04-09/17/23. 09/10: decreased methylprednisolone 60 mg q6h to q8h. 09/11: decrease to q12h. - fiO2 down from 95% to 80% today - CRP improved significantly - no signs of bacterial infection, vanco + Zosyn discontinued - CRP improving, CT A/P 09/03 negative for PE - standing/prn nebs VTE ppx - LMWH dispo - will likely need STR In my clinical judgment, the patient requires continued inpatient hospitalization for the following reasons: hypoxia Total time managing care of this patient today: 35 minutes. Quality Stroke Does the patient have a stroke diagnosis?: No VTE Prior VTE?: No VTE Risk Level:: Medical - moderate - high VTE Device Contraindication: N/A - Device Ordered VTE Drug Contraindication: N/A - Med Ordered
[2023-09-11] MEDS: guaiFENesin DM 100/10/5 ML 5 ML SYRUP PO (12:09)
[2023-09-11] MEDS: Docusate Sodium 100 MG CAPSULE PO (21:29)
[2023-09-12] VITALS (14 sets, daily range): BP systolic 110–132; BP diastolic 60–80; PULSE 74–101; RESP 18–22; TEMP 36.2–36.8; O2SAT 93–99
[2023-09-12] MEDS: LORazepam 0.5 MG TABLET PO ×3 (00:10→23:08)
[2023-09-12] MEDS: Benzonatate 100 MG CAPSULE 200 MG PO ×4 (00:10→20:28)
[2023-09-12] MEDS: Melatonin 3 MG TABLET 6 MG PO (00:10)
[2023-09-12] MEDS: Acetaminophen 325 MG TABLET 650 MG PO ×4 (00:17→23:10)
[2023-09-12] MEDS: Omeprazole 20 MG CAPSULE.DR PO (05:56)
[2023-09-12] MEDS: Albuterol/Iprat 2.5/0.5MG 3 ML AMPUL.NEB INHALE ×3 (07:48→18:36)
[2023-09-12] MEDS: Enoxaparin Sodium 40 MG/0.4 ML SYRINGE SUBCUT ×2 (08:25→20:24)
[2023-09-12] MEDS: guaiFENesin LA 600 MG TAB.ER.12H PO ×2 (08:26→20:23)
[2023-09-12] MEDS: methylPREDNISolone Sod Succ 125 MG/2 ML VIAL 40 MG IVPUSH ×2 (08:26→20:24)
[2023-09-12] MEDS: 0.9 % Sodium Chloride Flush 3 ML SYRINGE IVFLUSH ×3 (08:26→23:09)
[2023-09-12] MEDS: Sodium,Potassium Phosphates POWD.PACK 1 PACKET PO ×2 (08:26→20:23)
[2023-09-12] MEDS: Zinc Sulfate 220 MG CAPSULE PO ×2 (08:27→20:25)
[2023-09-12] MEDS: Ascorbic Acid 500 MG TABLET PO (08:27)
--- NOTE | 2023-09-12 10:31 | HO.PM.IMPN ---
Subjective Subjective Date of Service: 09/12/23 Interval History: c/o chest pressure with fits of coughing but when not coughing, his dyspnea has improved. FiO2 down from 80 to 65% Review of Systems Review of Systems: Yes all other systems are reviewed and are negative Physical Exam Vital Signs: Vital Signs: Last Vital Signs Temp 97.1 F 09/12/23 07:19 Pulse 84 09/12/23 07:52 Resp 18 09/12/23 07:53 BP 132/78 09/12/23 07:19 Pulse Ox 99 09/12/23 07:19 O2 Del Method High Flow Nasal C annula 09/12/23 07:19 O2 Flow Rate 15 09/12/23 07:19 FiO2 74 09/12/23 07:19 BMI result Body Mass Index 39.2 Gen: in no acute distress HEENT: sclera anicteric, moist mucus membranes Neck: supple Lungs: diminished Heart: regular rate and rhythm, no murmurs Abd: soft, non-tender, non-distended Ext: no edema Skin: warm/well-perfused Neuro: alert and oriented x3, no focal findings Psych: appropriate affect Objective Data Active Medications Acetaminophen (Acetaminophen 325 Mg Tablet) 650 mg PO Q6H PRN PRN Reason: Pain, Mild (Pain Scale 1-3) Last Admin: 09/12/23 05:57 Dose: 650 mg Documented By: MADISON Al Hydroxide/Mg Hydroxide (Magnesium Hydrox/Alum Hydrox 30 Ml Oral.Susp) 30 ml PO Q4H PRN PRN Reason: Heartburn/Nausea Albuterol Sulfate (Albuterol Sulfate (0.083%) 2.5 Mg/3 Ml Vial.Neb) 2.5 mg INHALE Q4H PRN PRN Reason: Shortness of Breath/Wheezing Last Admin: 09/09/23 03:38 Dose: 2.5 mg Documented By: BLUE Albuterol/Ipratropium (Albuterol/Iprat 2.5/0.5mg 3 Ml Ampul.Neb) 3 ml INHALE RQ6H WHILE AWAKE [facility] Last Admin: 09/12/23 07:48 Dose: 3 ml Documented By: JOHN Ascorbic Acid (Ascorbic Acid 500 Mg Tablet) 500 mg PO DAILY [facility] Last Admin: 09/12/23 08:27 Dose: 500 mg Documented By: ROMMEL Baricitinib (Baricitinib 2 Mg Tablet) 4 mg PO Q24H [facility] Stop: 09/17/23 09:01 Last Admin: 09/12/23 08:26 Dose: 4 mg Documented By: ROMMEL Benzocaine (Throat Lozenge, Medicated Lozenge) 1 lozenge MUCOUS MEM Q2H PRN PRN Reason: Sore Throat Last Admin: 09/08/23 00:38 Dose: 1 lozenge Documented By: ANTOIC Benzonatate (Benzonatate 100 Mg Capsule) 200 mg PO TID PRN PRN Reason: Cough Last Admin: 09/12/23 05:56 Dose: 200 mg Documented By: MADISON Docusate Sodium (Docusate Sodium 100 Mg Capsule) 100 mg PO BID [facility] Last Admin: 09/12/23 08:28 Dose: Not Given Documented By: ROMMEL Non-Admin Reason: Patient Refused Enoxaparin Sodium (Enoxaparin Sodium 40 Mg/0.4 Ml Syringe) 40 mg SUBCUT Q12H [facility] Last Admin: 09/12/23 08:25 Dose: 40 mg Documented By: ROMMEL Guaifenesin (Guaifenesin La 600 Mg Tab.Er.12h) 600 mg PO BID [facility] Last Admin: 09/12/23 08:26 Dose: 600 mg Documented By: ROMMEL Guaifenesin/Dextromethorphan (Guaifenesin Dm 100/10/5 Ml 5 Ml Syrup) 5 ml PO Q4H PRN PRN Reason: cough Last Admin: 09/11/23 12:09 Dose: 5 ml Documented By: ASHANTI Guaifenesin/Dextromethorphan (Guaifenesin Dm 600/30 1 Tab Tab.Er.12h) 1 tab PO BID PRN PRN Reason: Congestion Lorazepam (Lorazepam 0.5 Mg Tablet) 0.5 mg PO Q8H PRN PRN Reason: anxiety Last Admin: 09/12/23 08:27 Dose: 0.5 mg Documented By: ROMMEL Melatonin (Melatonin 3 Mg Tablet) 6 mg PO BEDTIME PRN PRN Reason: Insomnia Last Admin: 09/12/23 00:10 Dose: 6 mg Documented By: MADISON Methylprednisolone Sodium Succinate (Methylprednisolone Sod Succ 125 Mg/2 Ml Vial) 40 mg IVPUSH Q12H [facility] Last Admin: 09/12/23 08:26 Dose: 40 mg Documented By: ROMMEL Morphine Sulfate (Morphine Sulfate 4 Mg/Ml Cartridge) 3 mg IVPUSH Q3H PRN; Protocol PRN Reason: respiratory distress Last Admin: 09/08/23 04:14 Dose: 3 mg Documented By: ANTOIC Omeprazole (Omeprazole 20 Mg Capsule.) 20 mg PO DAILY@0630 [facility] Last Admin: 09/12/23 05:56 Dose: 20 mg Documented By: MADISON Ondansetron HCl (Ondansetron Hcl 4 Mg/2 Ml Vial) 4 mg IVPUSH Q8H PRN PRN Reason: Nausea and Vomiting Last Admin: 09/04/23 04:15 Dose: 4 mg Documented By: MADISON Potassium Phos/Sodium Phos (Sodium,Potassium Phosphates Powd.Pack) 1 packet PO BID [facility] Last Admin: 09/12/23 08:26 Dose: 1 packet Documented By: ROMMEL Sodium Chloride (0.9 % Sodium Chloride Flush 3 Ml Syringe) 3 ml IVFLUSH QSHIFT [facility] Last Admin: 09/12/23 08:26 Dose: 3 ml Documented By: ROMMEL Zinc Sulfate (Zinc Sulfate 220 Mg Capsule) 220 mg PO BID [facility] Last Admin: 09/12/23 08:27 Dose: 220 mg Documented By: ROMMEL Labs 09/11/23 07:08 09/11/23 07:08 Assessment and Plan (1) COVID-19 virus infection: Status: Acute (2) Sepsis due to COVID-19: Status: Acute Plan d11 58yo M with asthma, recently diagnosed with Covid-19 08/26/23 admitted with hypoxia AHRF, acute asthma exacerbation, and viral sepsis due to severe Covid-19 infection - ID consulted, on baricitinib 09/04-09/17/23. 09/10: decreased methylprednisolone 60 mg q6h to q8h. 09/11: decrease to 60 mg12h. 09/12: decrease to 40 mg q12h. continue to wean - fiO2 down from 80 to 65% today. - CRP improved significantly - no signs of bacterial infection, vanco + Zosyn discontinued - CRP improving, CT A/P 09/03 negative for PE - standing/prn nebs VTE ppx - LMWH dispo - will likely need STR In my clinical judgment, the patient requires continued inpatient hospitalization for the following reasons: hypoxia Total time managing care of this patient today: 35 minutes. Quality Stroke Does the patient have a stroke diagnosis?: No VTE Prior VTE?: No VTE Risk Level:: Medical - moderate - high VTE Device Contraindication: N/A - Device Ordered VTE Drug Contraindication: N/A - Med Ordered
[2023-09-12] MEDS: guaiFENesin DM 100/10/5 ML 5 ML SYRUP PO (11:52)
[2023-09-13] VITALS (14 sets, daily range): BP systolic 115–133; BP diastolic 69–80; PULSE 80–110; RESP 19–20; TEMP 35.7–36.6; O2SAT 93–98
[2023-09-13] MEDS: Omeprazole 20 MG CAPSULE.DR PO (05:12)
[2023-09-13] MEDS: guaiFENesin DM 100/10/5 ML 5 ML SYRUP PO ×3 (05:12→17:05)
[2023-09-13] MEDS: Albuterol/Iprat 2.5/0.5MG 3 ML AMPUL.NEB INHALE ×3 (08:26→20:13)
--- NOTE | 2023-09-13 10:18 | MHC.CM.PN ---
EMR REVIEWED, PT REMAINS ON HI FLOW O2, NO PLAN FOR DC, CM WILL CONT TO FOLLOW DC NEEDS.
[2023-09-13] MEDS: methylPREDNISolone Sod Succ 125 MG/2 ML VIAL 40 MG IVPUSH ×2 (10:20→20:21)
[2023-09-13] MEDS: 0.9 % Sodium Chloride Flush 3 ML SYRINGE IVFLUSH ×3 (10:21→17:05)
[2023-09-13] MEDS: Sodium,Potassium Phosphates POWD.PACK 1 PACKET PO ×2 (10:22→20:21)
[2023-09-13] MEDS: Enoxaparin Sodium 40 MG/0.4 ML SYRINGE SUBCUT ×2 (10:22→20:21)
[2023-09-13] MEDS: guaiFENesin LA 600 MG TAB.ER.12H PO ×2 (10:22→20:21)
[2023-09-13] MEDS: Zinc Sulfate 220 MG CAPSULE PO ×2 (10:22→20:21)
[2023-09-13] MEDS: Ascorbic Acid 500 MG TABLET PO (10:22)
[2023-09-13] MEDS: Benzonatate 100 MG CAPSULE 200 MG PO ×2 (10:30→17:05)
[2023-09-13] MEDS: Acetaminophen 325 MG TABLET 650 MG PO (10:30)
--- NOTE | 2023-09-13 15:19 | P.PNIM_ITS ---
Subjective Subjective Date of Service: 09/13/23 Interval History: has cough ,says sob seems somewhat improving no fevers Review of Systems as above Review of Systems: Yes all other systems are reviewed and are negative Physical Exam 2 Vital Signs: Vital Signs: Last Vital Signs Temp 97.9 F 09/13/23 15:14 Pulse 93 09/13/23 15:14 Resp 20 09/13/23 15:14 BP 127/72 09/13/23 15:14 Pulse Ox 93 09/13/23 15:14 O2 Del Method High Flow Nasal C annula 09/13/23 15:14 O2 Flow Rate 50 09/13/23 15:14 FiO2 65 09/13/23 15:14 BMI result Body Mass Index 39.2 Gen: in no acute distress Neck: supple Lungs: air entry somewhat diminshed at bases ,no rales or wheezing Heart: [id number]. Abd: soft,nd,nt ,bs present. Ext: no edema Skin: no cyanosis ir edema Neuro: alert and oriented x3, no focal findings Psych: appropriate affect Objective Data Active Medications Acetaminophen (Acetaminophen 325 Mg Tablet) 650 mg PO Q6H PRN PRN Reason: Pain, Mild (Pain Scale 1-3) Last Admin: 09/13/23 10:30 Dose: 650 mg Documented By: KHAI Al Hydroxide/Mg Hydroxide (Magnesium Hydrox/Alum Hydrox 30 Ml Oral.Susp) 30 ml PO Q4H PRN PRN Reason: Heartburn/Nausea Albuterol Sulfate (Albuterol Sulfate (0.083%) 2.5 Mg/3 Ml Vial.Neb) 2.5 mg INHALE Q4H PRN PRN Reason: Shortness of Breath/Wheezing Last Admin: 09/09/23 03:38 Dose: 2.5 mg Documented By: BLUE Albuterol/Ipratropium (Albuterol/Iprat 2.5/0.5mg 3 Ml Ampul.Neb) 3 ml INHALE RQ6H WHILE AWAKE [facility] Last Admin: 09/13/23 14:49 Dose: 3 ml Documented By: JESSICA Ascorbic Acid (Ascorbic Acid 500 Mg Tablet) 500 mg PO DAILY [facility] Last Admin: 09/13/23 10:22 Dose: 500 mg Documented By: KHAI Baricitinib (Baricitinib 2 Mg Tablet) 4 mg PO Q24H [facility] Stop: 09/17/23 09:01 Last Admin: 09/13/23 10:22 Dose: 4 mg Documented By: KHAI Benzocaine (Throat Lozenge, Medicated Lozenge) 1 lozenge MUCOUS MEM Q2H PRN PRN Reason: Sore Throat Last Admin: 09/08/23 00:38 Dose: 1 lozenge Documented By: ANTOIC Benzonatate (Benzonatate 100 Mg Capsule) 200 mg PO TID PRN PRN Reason: Cough Last Admin: 09/13/23 10:30 Dose: 200 mg Documented By: KHAI Docusate Sodium (Docusate Sodium 100 Mg Capsule) 100 mg PO BID [facility] Last Admin: 09/13/23 10:55 Dose: Not Given Documented By: KHAI Non-Admin Reason: Patient Refused Enoxaparin Sodium (Enoxaparin Sodium 40 Mg/0.4 Ml Syringe) 40 mg SUBCUT Q12H [facility] Last Admin: 09/13/23 10:22 Dose: 40 mg Documented By: KHAI Guaifenesin (Guaifenesin La 600 Mg Tab.Er.12h) 600 mg PO BID [facility] Last Admin: 09/13/23 10:22 Dose: 600 mg Documented By: KHAI Guaifenesin/Dextromethorphan (Guaifenesin Dm 100/10/5 Ml 5 Ml Syrup) 5 ml PO Q4H PRN PRN Reason: cough Last Admin: 09/13/23 10:30 Dose: 5 ml Documented By: KHAI Guaifenesin/Dextromethorphan (Guaifenesin Dm 600/30 1 Tab Tab.Er.12h) 1 tab PO BID PRN PRN Reason: Congestion Lorazepam (Lorazepam 0.5 Mg Tablet) 0.5 mg PO Q8H PRN PRN Reason: anxiety Last Admin: 09/12/23 23:08 Dose: 0.5 mg Documented By: MONCHO Melatonin (Melatonin 3 Mg Tablet) 6 mg PO BEDTIME PRN PRN Reason: Insomnia Last Admin: 09/12/23 00:10 Dose: 6 mg Documented By: MADISON Methylprednisolone Sodium Succinate (Methylprednisolone Sod Succ 125 Mg/2 Ml Vial) 40 mg IVPUSH Q12H [facility] Last Admin: 09/13/23 10:20 Dose: 40 mg Documented By: KHAI Morphine Sulfate (Morphine Sulfate 4 Mg/Ml Cartridge) 3 mg IVPUSH Q3H PRN; Protocol PRN Reason: respiratory distress Last Admin: 09/08/23 04:14 Dose: 3 mg Documented By: ANTDEENA Omeprazole (Omeprazole 20 Mg Capsule.Dr) 20 mg PO DAILY@0630 [facility] Last Admin: 09/13/23 05:12 Dose: 20 mg Documented By: MONCHO Ondansetron HCl (Ondansetron Hcl 4 Mg/2 Ml Vial) 4 mg IVPUSH Q8H PRN PRN Reason: Nausea and Vomiting Last Admin: 09/04/23 04:15 Dose: 4 mg Documented By: MADISON Potassium Phos/Sodium Phos (Sodium,Potassium Phosphates Powd.Pack) 1 packet PO BID [facility] Last Admin: 09/13/23 10:22 Dose: 1 packet Documented By: KHAI Sodium Chloride (0.9 % Sodium Chloride Flush 3 Ml Syringe) 3 ml IVFLUSH QSHIFT [facility] Last Admin: 09/13/23 10:21 Dose: 3 ml Documented By: KHAI Zinc Sulfate (Zinc Sulfate 220 Mg Capsule) 220 mg PO BID [facility] Last Admin: 09/13/23 10:22 Dose: 220 mg Documented By: KHAI Labs 09/11/23 07:08 09/11/23 07:08 Assessment and Plan (1) Acute asthma exacerbation: Status: Acute Plan Day12 58yo M with asthma, recently diagnosed with Covid-19 08/26/23 admitted with hypoxia Acute hypoxemic respiratory failure possible sec acute asthma exacerbation, and viral sepsis due to severe Covid-19 infection - ID consulted, on baricitinib 09/04-09/17/23. 09/10: decreased methylprednisolone 60 mg q6h to q8h. 09/11: decrease to 60 mg12h. 09/12: decrease to 40 mg q12h. continue to wean - fiO2 down from 80 to 65% -will tryto trend down . - CRP improved significantly - no signs of bacterial infection, vanco + Zosyn discontinued - CRP improving, CT A/P 09/03 negative for PE - standing/prn nebs VTE ppx- LMWH dispo- will likely need STR In my clinical judgment, the patient requires continued inpatient hospitalization for the following reasons:need of significant oxygen(dependent) as well as pressure (flow) due to Acute hypoxemic respiratory failure possible sec acute asthma exacerbation, and viral sepsis due to severe Covid-19 infection-need moniter for hypoxia and oxygen weaning,iv steriods. Quality Stroke Does the patient have a stroke diagnosis?: No VTE Prior VTE?: No VTE Risk Level:: Medical - moderate - high VTE Device Contraindication: N/A - Device Ordered VTE Drug Contraindication: N/A - Med Ordered
[2023-09-13] MEDS: Loratadine 10 MG TABLET PO (17:05)
[2023-09-13] MEDS: LORazepam 0.5 MG TABLET PO (23:15)
[2023-09-14] VITALS (10 sets, daily range): BP systolic 106–149; BP diastolic 60–76; PULSE 90–103; RESP 19–24; TEMP 36–37.1; O2SAT 90–96
[2023-09-14] MEDS: Benzonatate 100 MG CAPSULE 200 MG PO (01:26)
[2023-09-14] MEDS: Omeprazole 20 MG CAPSULE.DR PO (05:42)
[2023-09-14] MEDS: Enoxaparin Sodium 40 MG/0.4 ML SYRINGE SUBCUT ×2 (07:52→21:52)
[2023-09-14] MEDS: Sodium,Potassium Phosphates POWD.PACK 1 PACKET PO ×2 (07:52→21:52)
[2023-09-14] MEDS: methylPREDNISolone Sod Succ 125 MG/2 ML VIAL 40 MG IVPUSH ×2 (07:52→21:52)
[2023-09-14] MEDS: Loratadine 10 MG TABLET PO (07:53)
[2023-09-14] MEDS: Ascorbic Acid 500 MG TABLET PO (07:53)
[2023-09-14] MEDS: Zinc Sulfate 220 MG CAPSULE PO ×2 (07:53→21:53)
[2023-09-14] MEDS: 0.9 % Sodium Chloride Flush 3 ML SYRINGE IVFLUSH ×2 (07:53→23:38)
[2023-09-14] MEDS: guaiFENesin LA 600 MG TAB.ER.12H PO ×2 (07:53→21:52)
[2023-09-14] MEDS: Albuterol/Iprat 2.5/0.5MG 3 ML AMPUL.NEB INHALE ×3 (08:34→19:58)
--- NOTE | 2023-09-14 13:18 | MHC.CM.PN ---
Pt is not yet medically cleared for DC, CM to follow and assist with DC plan.
--- NOTE | 2023-09-14 17:18 | HO.PM.IMPN ---
Subjective Subjective Date of Service: 09/14/23 Interval History: oxygen demand seems improving,off high flow has cough ,says sob seems somewhat improving no fevers Review of Systems Review of Systems: Yes all other systems are reviewed and are negative Physical Exam Vital Signs: Vital Signs: Last Vital Signs Temp 97.3 F 09/14/23 15:35 Pulse 100 09/14/23 15:43 Resp 20 09/14/23 15:43 BP 149/75 H 09/14/23 15:35 Pulse Ox 95 09/14/23 15:35 O2 Del Method Nasal Cannula 09/14/23 15:35 O2 Flow Rate 9 09/14/23 15:35 FiO2 35 09/14/23 04:00 BMI result Body Mass Index 39.2 Gen: in no acute distress Lungs: air entry somewhat diminshed at bases ,no rales or wheezing Heart: [id number]. Abd: soft,nd,nt ,bs present. Ext: no edema Skin: no cyanosis ir edema Neuro: alert and oriented x3, no focal findings Psych: appropriate affect Objective Data Active Medications Acetaminophen (Acetaminophen 325 Mg Tablet) 650 mg PO Q6H PRN PRN Reason: Pain, Mild (Pain Scale 1-3) Last Admin: 09/13/23 10:30 Dose: 650 mg Documented By: KHAI Al Hydroxide/Mg Hydroxide (Magnesium Hydrox/Alum Hydrox 30 Ml Oral.Susp) 30 ml PO Q4H PRN PRN Reason: Heartburn/Nausea Albuterol Sulfate (Albuterol Sulfate (0.083%) 2.5 Mg/3 Ml Vial.Neb) 2.5 mg INHALE Q4H PRN PRN Reason: Shortness of Breath/Wheezing Last Admin: 09/09/23 03:38 Dose: 2.5 mg Documented By: BLUE Albuterol/Ipratropium (Albuterol/Iprat 2.5/0.5mg 3 Ml Ampul.Neb) 3 ml INHALE RQ6H WHILE AWAKE [facility] Last Admin: 09/14/23 15:40 Dose: 3 ml Documented By: JESSICA Ascorbic Acid (Ascorbic Acid 500 Mg Tablet) 500 mg PO DAILY [facility] Last Admin: 09/14/23 07:53 Dose: 500 mg Documented By: EM Baricitinib (Baricitinib 2 Mg Tablet) 4 mg PO Q24H [facility] Stop: 09/17/23 09:01 Last Admin: 09/14/23 07:52 Dose: 4 mg Documented By: EM Benzocaine (Throat Lozenge, Medicated Lozenge) 1 lozenge MUCOUS MEM Q2H PRN PRN Reason: Sore Throat Last Admin: 09/08/23 00:38 Dose: 1 lozenge Documented By: ANTOIC Benzonatate (Benzonatate 100 Mg Capsule) 200 mg PO TID PRN PRN Reason: Cough Last Admin: 09/14/23 01:26 Dose: 200 mg Documented By: MONCHO Docusate Sodium (Docusate Sodium 100 Mg Capsule) 100 mg PO BID [facility] Last Admin: 09/14/23 07:53 Dose: Not Given Documented By: EM Non-Admin Reason: Patient Refused Enoxaparin Sodium (Enoxaparin Sodium 40 Mg/0.4 Ml Syringe) 40 mg SUBCUT Q12H [facility] Last Admin: 09/14/23 07:52 Dose: 40 mg Documented By: EM Guaifenesin (Guaifenesin La 600 Mg Tab.Er.12h) 600 mg PO BID [facility] Last Admin: 09/14/23 07:53 Dose: 600 mg Documented By: EM Guaifenesin/Dextromethorphan (Guaifenesin Dm 100/10/5 Ml 5 Ml Syrup) 5 ml PO Q4H PRN PRN Reason: cough Last Admin: 09/13/23 17:05 Dose: 5 ml Documented By: KHAI Guaifenesin/Dextromethorphan (Guaifenesin Dm 600/30 1 Tab Tab.Er.12h) 1 tab PO BID PRN PRN Reason: Congestion Loratadine (Loratadine 10 Mg Tablet) 10 mg PO DAILY [facility] Last Admin: 09/14/23 07:53 Dose: 10 mg Documented By: EM Melatonin (Melatonin 3 Mg Tablet) 6 mg PO BEDTIME PRN PRN Reason: Insomnia Last Admin: 09/12/23 00:10 Dose: 6 mg Documented By: MADISON Methylprednisolone Sodium Succinate (Methylprednisolone Sod Succ 125 Mg/2 Ml Vial) 40 mg IVPUSH Q12H [facility] Last Admin: 09/14/23 07:52 Dose: 40 mg Documented By: EM Omeprazole (Omeprazole 20 Mg Capsule.) 20 mg PO DAILY@0630 [facility] Last Admin: 09/14/23 05:42 Dose: 20 mg Documented By: MONCHO Ondansetron HCl (Ondansetron Hcl 4 Mg/2 Ml Vial) 4 mg IVPUSH Q8H PRN PRN Reason: Nausea and Vomiting Last Admin: 09/04/23 04:15 Dose: 4 mg Documented By: MADISON Potassium Phos/Sodium Phos (Sodium,Potassium Phosphates Powd.Pack) 1 packet PO BID [facility] Last Admin: 09/14/23 07:52 Dose: 1 packet Documented By: EM Sodium Chloride (0.9 % Sodium Chloride Flush 3 Ml Syringe) 3 ml IVFLUSH QSHIFT [facility] Last Admin: 09/14/23 15:38 Dose: Not Given Documented By: EM Non-Admin Reason: Previously Administered Zinc Sulfate (Zinc Sulfate 220 Mg Capsule) 220 mg PO BID [facility] Last Admin: 09/14/23 07:53 Dose: 220 mg Documented By: EM Labs 09/11/23 07:08 09/11/23 07:08 Assessment and Plan (1) Acute respiratory failure with hypoxia: Status: Acute Plan Day13 58yo M with asthma, recently diagnosed with Covid-19 08/26/23 admitted with hypoxia Acute hypoxemic respiratory failure possible sec acute asthma exacerbation, and viral sepsis due to severe Covid-19 infection ID consulted, on baricitinib 09/04-09/17/23. 09/10: decreased methylprednisolone 60 mg q6h to q8h. 09/11: decrease to 60 mg12h. 09/12: decrease to 40 mg q12h. continue to wean offhigh flow ,but still on 9 liter NC CRP improved significantly, CT A/P 09/03 negative for PE no signs of bacterial infection, vanco + Zosyn , standing/prn nebs VTE ppx- LMWH dispo- will likely need STR In my clinical judgment, the patient requires continued inpatient hospitalization for the following reasons:need of significant oxygen(dependent) as well as pressure (flow) due to Acute hypoxemic respiratory failure possible sec acute asthma exacerbation, and viral sepsis due to severe Covid-19 infection-need moniter for hypoxia and oxygen weaning,iv steriods. Quality Stroke Does the patient have a stroke diagnosis?: No VTE Prior VTE?: No VTE Risk Level:: Medical - moderate - high VTE Device Contraindication: N/A - Device Ordered VTE Drug Contraindication: N/A - Med Ordered
[2023-09-14] MEDS: Throat Lozenge, Medicated LOZENGE 1 LOZENGE MUCOUS MEM (17:47)
[2023-09-14] MEDS: guaiFENesin DM 600/30 1 TAB TAB.ER.12H PO (17:47)
[2023-09-14] MEDS: Docusate Sodium 100 MG CAPSULE PO (21:53)
[2023-09-14] MEDS: Acetaminophen 325 MG TABLET 650 MG PO (23:34)
[2023-09-14] MEDS: Melatonin 3 MG TABLET 6 MG PO (23:34)
[2023-09-14] MEDS: guaiFENesin DM 100/10/5 ML 5 ML SYRUP PO (23:34)
[2023-09-15 03:13] VITALS: BP 118/73; PULSE 93; RESP 18; TEMP 37.1; O2SAT 95
[2023-09-15] MEDS: Benzonatate 100 MG CAPSULE 200 MG PO ×3 (03:31→22:59)
[2023-09-15] MEDS: Omeprazole 20 MG CAPSULE.DR PO (06:08)
[2023-09-15 08:00] VITALS: BP 125/81; PULSE 82; RESP 20; TEMP 36.2; O2SAT 95
[2023-09-15 08:14] LABS: Hematocrit 39.5 % (42.0-52.0); Hemoglobin 13.3 g/dl (14.0-18.0); Mean Corpuscular HGB Conc 33.7 g/dl (31.0-36.0); Mean Corpuscular Volume 92.1 fL (80.0-98.0); Mean Platelet Volume 11.4 fL (9.4-12.4); Platelet Count 400 X10*3/uL (160-400); Red Blood Count 4.29 X10*6/uL (4.60-5.80); Red Cell Distribution Width 13.4 % (11.0-16.0); White Blood Count 17.6 X10*3/uL (4.8-10.8)
[2023-09-15] MEDS: Albuterol/Iprat 2.5/0.5MG 3 ML AMPUL.NEB INHALE (08:17)
[2023-09-15 08:25] LABS: Anion Gap 15 (12-20); Blood Urea Nitrogen 22 mg/dL (9-16); Calcium 8.4 mg/dL (8.4-10.2); Carbon Dioxide 26 mmol/L (22-29); Chloride 98 mmol/L (96-108); Creatinine Clr Calc Pharmacy 161.6; Estimated Glomerular Filt Rate > 60; Glucose Random 109 mg/dL (60-115); Potassium 4.4 mmol/L (3.3-5.1); Sodium 135 mmol/L (135-145)
[2023-09-15] MEDS: Loratadine 10 MG TABLET PO (09:16)
[2023-09-15] MEDS: methylPREDNISolone Sod Succ 125 MG/2 ML VIAL 40 MG IVPUSH (09:17)
[2023-09-15] MEDS: guaiFENesin LA 600 MG TAB.ER.12H PO ×2 (09:17→22:58)
[2023-09-15] MEDS: Enoxaparin Sodium 40 MG/0.4 ML SYRINGE SUBCUT ×2 (09:17→22:58)
[2023-09-15] MEDS: Ascorbic Acid 500 MG TABLET PO (09:17)
[2023-09-15] MEDS: 0.9 % Sodium Chloride Flush 3 ML SYRINGE IVFLUSH ×3 (09:18→22:59)
[2023-09-15] MEDS: Zinc Sulfate 220 MG CAPSULE PO ×2 (09:25→22:59)
[2023-09-15] MEDS: Sodium,Potassium Phosphates POWD.PACK 1 PACKET PO ×2 (09:25→22:58)
[2023-09-15 11:29] VITALS: BP 125/69; PULSE 104; RESP 20; TEMP 36.5; O2SAT 92
--- NOTE | 2023-09-15 14:49 | HO.PM.IMPN ---
Subjective Subjective Date of Service: 09/15/23 Interval History: hypoxia/covid Still short of breath with minimal exertion denies any chest pain or any new complaints Has cough. No fever Review of Systems Review of Systems: Yes all other systems are reviewed and are negative Physical Exam Vital Signs: Vital Signs: Last Vital Signs Temp 97.7 F 09/15/23 11:29 Pulse 104 H 09/15/23 11:29 Resp 20 09/15/23 11:29 BP 125/69 09/15/23 11:29 Pulse Ox 92 09/15/23 11:29 O2 Del Method Nasal Cannula 09/15/23 11:29 O2 Flow Rate 6 09/15/23 11:29 FiO2 35 09/14/23 04:00 BMI result Body Mass Index 39.2 Gen: in no acute distress Lungs: air entry somewhat diminshed at bases ,no rales or wheezing Heart: [id number]. Abd: soft,nd,nt ,bs present. Ext: no edema Skin: no cyanosis ir edema Neuro: alert and oriented x3, no focal findings Psych: appropriate affect Objective Data Active Medications Acetaminophen (Acetaminophen 325 Mg Tablet) 650 mg PO Q6H PRN PRN Reason: Pain, Mild (Pain Scale 1-3) Last Admin: 09/14/23 23:34 Dose: 650 mg Documented By: SOHAIL Al Hydroxide/Mg Hydroxide (Magnesium Hydrox/Alum Hydrox 30 Ml Oral.Susp) 30 ml PO Q4H PRN PRN Reason: Heartburn/Nausea Ascorbic Acid (Ascorbic Acid 500 Mg Tablet) 500 mg PO DAILY [facility] Last Admin: 09/15/23 09:17 Dose: 500 mg Documented By: FABIOLA Baricitinib (Baricitinib 2 Mg Tablet) 4 mg PO Q24H [facility] Stop: 09/17/23 09:01 Last Admin: 09/15/23 09:16 Dose: 4 mg Documented By: FABIOLA Benzocaine (Throat Lozenge, Medicated Lozenge) 1 lozenge MUCOUS MEM Q2H PRN PRN Reason: Sore Throat Last Admin: 09/14/23 17:47 Dose: 1 lozenge Documented By: EM Benzonatate (Benzonatate 100 Mg Capsule) 200 mg PO TID PRN PRN Reason: Cough Last Admin: 09/15/23 11:41 Dose: 200 mg Documented By: FABIOLA Docusate Sodium (Docusate Sodium 100 Mg Capsule) 100 mg PO BID [facility] Last Admin: 09/15/23 09:17 Dose: Not Given Documented By: FABIOLA Non-Admin Reason: Patient Refused Enoxaparin Sodium (Enoxaparin Sodium 40 Mg/0.4 Ml Syringe) 40 mg SUBCUT Q12H [facility] Last Admin: 09/15/23 09:17 Dose: 40 mg Documented By: FABIOLA Guaifenesin (Guaifenesin La 600 Mg Tab.Er.12h) 600 mg PO BID [facility] Last Admin: 09/15/23 09:17 Dose: 600 mg Documented By: FABIOLA Guaifenesin/Dextromethorphan (Guaifenesin Dm 100/10/5 Ml 5 Ml Syrup) 5 ml PO Q4H PRN PRN Reason: cough Last Admin: 09/14/23 23:34 Dose: 5 ml Documented By: SOHAIL Guaifenesin/Dextromethorphan (Guaifenesin Dm 600/30 1 Tab Tab.Er.12h) 1 tab PO BID PRN PRN Reason: Congestion Last Admin: 09/14/23 17:47 Dose: 1 tab Documented By: EM Loratadine (Loratadine 10 Mg Tablet) 10 mg PO DAILY [facility] Last Admin: 09/15/23 09:16 Dose: 10 mg Documented By: FABIOLA Melatonin (Melatonin 3 Mg Tablet) 6 mg PO BEDTIME PRN PRN Reason: Insomnia Last Admin: 09/14/23 23:34 Dose: 6 mg Documented By: SOHAIL Methylprednisolone Sodium Succinate (Methylprednisolone Sod Succ 125 Mg/2 Ml Vial) 40 mg IVPUSH Q12H [facility] Last Admin: 09/15/23 09:17 Dose: 40 mg Documented By: FABIOLA Omeprazole (Omeprazole 20 Mg Capsule.) 20 mg PO DAILY@0630 [facility] Last Admin: 09/15/23 06:08 Dose: 20 mg Documented By: SOHAIL Ondansetron HCl (Ondansetron Hcl 4 Mg/2 Ml Vial) 4 mg IVPUSH Q8H PRN PRN Reason: Nausea and Vomiting Last Admin: 09/04/23 04:15 Dose: 4 mg Documented By: MADISON Potassium Phos/Sodium Phos (Sodium,Potassium Phosphates Powd.Pack) 1 packet PO BID [facility] Last Admin: 09/15/23 09:25 Dose: 1 packet Documented By: FABIOLA Sodium Chloride (0.9 % Sodium Chloride Flush 3 Ml Syringe) 3 ml IVFLUSH QSHIFT [facility] Last Admin: 09/15/23 09:18 Dose: 3 ml Documented By: FABIOLA Zinc Sulfate (Zinc Sulfate 220 Mg Capsule) 220 mg PO BID [facility] Last Admin: 09/15/23 09:25 Dose: 220 mg Documented By: FABIOLA Labs 09/15/23 07:01 09/15/23 07:01 Labs: Laboratory Results - last 24 hr 09/15/23 07:01 MCV 92.1 MCH 31.0 MCHC 33.7 RDW 13.4 Plt Count 400 MPV 11.4 Absolute Nucleated RBC 0.000 Nucleated RBC % (auto) 0.0 Anion Gap 15 Estim Creat Clear Calc 161.6 Estimated GFR > 60 Random Glucose 109 Calcium 8.4 Assessment and Plan (1) Acute respiratory failure with hypoxia: Status: Acute Plan Day14 58yo M with asthma, recently diagnosed with Covid-19 08/26/23 admitted with hypoxia Acute hypoxemic respiratory failure possible sec acute asthma exacerbation, and viral sepsis due to severe Covid-19 infection ID consulted, on baricitinib 09/04-09/17/23. 09/10: decreased methylprednisolone 60 mg q6h to q8h. 09/11: decrease to 60 mg12h. 09/12: decrease to 40 mg q12h. 09/15 dec to solumedrol 40 mg daily- continue to wean offhigh flow ,but still on 6 liter NC CRP improved significantly, CT A/P 09/03 negative for PE no signs of bacterial infection, vanco + Zosyn , standing/prn nebs VTE ppx- LMWH dispo- will likely need STR In my clinical judgment, the patient requires continued inpatient hospitalization for the following reasons:need of significant oxygen(dependent) as well as pressure (flow) due to Acute hypoxemic respiratory failure possible sec acute asthma exacerbation, and viral sepsis due to severe Covid-19 infection-need moniter for hypoxia and oxygen weaning,iv steriods. Quality Stroke Does the patient have a stroke diagnosis?: No VTE Prior VTE?: No VTE Risk Level:: Medical - moderate - high VTE Device Contraindication: N/A - Device Ordered VTE Drug Contraindication: N/A - Med Ordered
[2023-09-15 15:19] VITALS: BP 134/90; PULSE 107; RESP 20; TEMP 35.9; O2SAT 93
[2023-09-15] MEDS: guaiFENesin DM 100/10/5 ML 5 ML SYRUP PO (17:05)
[2023-09-15 19:25] VITALS: BP 126/69; PULSE 109; RESP 20; TEMP 36.3; O2SAT 95
[2023-09-15] MEDS: Melatonin 3 MG TABLET 6 MG PO (22:59)
[2023-09-15 23:42] VITALS: BP 114/69; PULSE 89; RESP 18; TEMP 37.1; O2SAT 93
[2023-09-16] VITALS (7 sets, daily range): BP systolic 105–129; BP diastolic 63–80; PULSE 85–105; RESP 18–24; TEMP 36.6–37.1; O2SAT 88–99
[2023-09-16] MEDS: Omeprazole 20 MG CAPSULE.DR PO (06:22)
[2023-09-16] MEDS: Benzonatate 100 MG CAPSULE 200 MG PO ×2 (07:33→20:14)
[2023-09-16] MEDS: guaiFENesin LA 600 MG TAB.ER.12H PO ×2 (09:26→20:14)
[2023-09-16] MEDS: Zinc Sulfate 220 MG CAPSULE PO ×2 (09:26→20:14)
[2023-09-16] MEDS: Loratadine 10 MG TABLET PO (09:26)
[2023-09-16] MEDS: Ascorbic Acid 500 MG TABLET PO (09:26)
[2023-09-16] MEDS: Enoxaparin Sodium 40 MG/0.4 ML SYRINGE SUBCUT ×2 (09:27→20:14)
[2023-09-16] MEDS: Sodium,Potassium Phosphates POWD.PACK 1 PACKET PO ×2 (09:27→20:14)
[2023-09-16] MEDS: 0.9 % Sodium Chloride Flush 3 ML SYRINGE IVFLUSH (09:28)
[2023-09-16] MEDS: methylPREDNISolone Sod Succ 125 MG/2 ML VIAL 40 MG IVPUSH (09:31)
[2023-09-16] MEDS: guaiFENesin DM 100/10/5 ML 5 ML SYRUP PO (10:19)
--- NOTE | 2023-09-16 11:19 | MHC.CM.PN ---
EMR REVIEWED, PLAN TO CONT TO WEAN PT OFF O2, NO PLAN FOR DC AT THIS TIME, CM WILL CONT TO FOLLOW DC NEEDS.
--- NOTE | 2023-09-16 12:53 | HO.PM.IMPN ---
Subjective Subjective Date of Service: 09/16/23 Interval History: hypoxia/covid Review of Systems Still short of breath with minimal exertion denies any chest pain or any new complaints Has cough. No fever Review of Systems: Yes all other systems are reviewed and are negative Physical Exam Vital Signs: Vital Signs: Last Vital Signs Temp 98.2 F 09/16/23 11:53 Pulse 98 09/16/23 11:53 Resp 18 09/16/23 11:53 BP 105/70 09/16/23 11:53 Pulse Ox 92 09/16/23 11:53 O2 Del Method Nasal Cannula 09/16/23 11:53 O2 Flow Rate 5 09/16/23 11:53 FiO2 35 09/14/23 04:00 BMI result Body Mass Index 39.2 Gen: in no acute distress Lungs: air entry somewhat diminshed at bases ,no rales or wheezing Heart: [id number]. Abd: soft,nd,nt ,bs present. Ext: no edema Skin: no cyanosis or edema Neuro: alert and oriented x3, no focal findings Psych: appropriate affect Objective Data Active Medications Acetaminophen (Acetaminophen 325 Mg Tablet) 650 mg PO Q6H PRN PRN Reason: Pain, Mild (Pain Scale 1-3) Last Admin: 09/14/23 23:34 Dose: 650 mg Documented By: SOHAIL Al Hydroxide/Mg Hydroxide (Magnesium Hydrox/Alum Hydrox 30 Ml Oral.Susp) 30 ml PO Q4H PRN PRN Reason: Heartburn/Nausea Ascorbic Acid (Ascorbic Acid 500 Mg Tablet) 500 mg PO DAILY [facility] Last Admin: 09/16/23 09:26 Dose: 500 mg Documented By: FABIOLA Baricitinib (Baricitinib 2 Mg Tablet) 4 mg PO Q24H [facility] Stop: 09/17/23 09:01 Last Admin: 09/16/23 09:27 Dose: 4 mg Documented By: FABIOLA Benzocaine (Throat Lozenge, Medicated Lozenge) 1 lozenge MUCOUS MEM Q2H PRN PRN Reason: Sore Throat Last Admin: 09/14/23 17:47 Dose: 1 lozenge Documented By: EM Benzonatate (Benzonatate 100 Mg Capsule) 200 mg PO TID PRN PRN Reason: Cough Last Admin: 09/16/23 07:33 Dose: 200 mg Documented By: FABIOLA Docusate Sodium (Docusate Sodium 100 Mg Capsule) 100 mg PO BID [facility] Last Admin: 09/16/23 09:31 Dose: Not Given Documented By: FABIOLA Non-Admin Reason: Patient Refused Enoxaparin Sodium (Enoxaparin Sodium 40 Mg/0.4 Ml Syringe) 40 mg SUBCUT Q12H [facility] Last Admin: 09/16/23 09:27 Dose: 40 mg Documented By: FABIOLA Guaifenesin (Guaifenesin La 600 Mg Tab.Er.12h) 600 mg PO BID [facility] Last Admin: 09/16/23 09:26 Dose: 600 mg Documented By: FABIOLA Guaifenesin/Dextromethorphan (Guaifenesin Dm 100/10/5 Ml 5 Ml Syrup) 5 ml PO Q4H PRN PRN Reason: cough Last Admin: 09/16/23 10:19 Dose: 5 ml Documented By: FABIOLA Guaifenesin/Dextromethorphan (Guaifenesin Dm 600/30 1 Tab Tab.Er.12h) 1 tab PO BID PRN PRN Reason: Congestion Last Admin: 09/14/23 17:47 Dose: 1 tab Documented By: EM Loratadine (Loratadine 10 Mg Tablet) 10 mg PO DAILY [facility] Last Admin: 09/16/23 09:26 Dose: 10 mg Documented By: FABIOLA Melatonin (Melatonin 3 Mg Tablet) 6 mg PO BEDTIME PRN PRN Reason: Insomnia Last Admin: 09/15/23 22:59 Dose: 6 mg Documented By: SOHAIL Methylprednisolone Sodium Succinate (Methylprednisolone Sod Succ 125 Mg/2 Ml Vial) 40 mg IVPUSH DAILY [facility] Last Admin: 09/16/23 09:31 Dose: 40 mg Documented By: FABIOLA Omeprazole (Omeprazole 20 Mg Capsule.) 20 mg PO DAILY@0630 [facility] Last Admin: 09/16/23 06:22 Dose: 20 mg Documented By: SOHAIL Ondansetron HCl (Ondansetron Hcl 4 Mg/2 Ml Vial) 4 mg IVPUSH Q8H PRN PRN Reason: Nausea and Vomiting Last Admin: 09/04/23 04:15 Dose: 4 mg Documented By: MADISON Potassium Phos/Sodium Phos (Sodium,Potassium Phosphates Powd.Pack) 1 packet PO BID [facility] Last Admin: 09/16/23 09:27 Dose: 1 packet Documented By: FABIOLA Sodium Chloride (0.9 % Sodium Chloride Flush 3 Ml Syringe) 3 ml IVFLUSH QSHIFT [facility] Last Admin: 09/16/23 09:28 Dose: 3 ml Documented By: FABIOLA Zinc Sulfate (Zinc Sulfate 220 Mg Capsule) 220 mg PO BID [facility] Last Admin: 09/16/23 09:26 Dose: 220 mg Documented By: FABIOLA Labs 09/15/23 07:01 09/15/23 07:01 Assessment and Plan (1) Acute respiratory failure with hypoxia: Status: Acute Plan Day14 58yo M with asthma, recently diagnosed with Covid-19 08/26/23 admitted with hypoxia Acute hypoxemic respiratory failure possible sec acute asthma exacerbation, and viral sepsis due to severe Covid-19 infection ID consulted, on baricitinib 09/04-09/17/23. 09/10: decreased methylprednisolone 60 mg q6h to q8h. 09/11: decrease to 60 mg12h. 09/12: decrease to 40 mg q12h. 09/15 dec to solumedrol 40 mg daily- continue to wean offhigh flow ,but still on 6 liter NC CRP improved significantly, CT A/P 09/03 negative for PE no signs of bacterial infection, vanco + Zosyn , standing/prn nebs VTE ppx- LMWH dispo- will likely need STR In my clinical judgment, the patient requires continued inpatient hospitalization for the following reasons:need of significant oxygen(dependent) as well as pressure (flow) due to Acute hypoxemic respiratory failure possible sec acute asthma exacerbation, and viral sepsis due to severe Covid-19 infection-need moniter for hypoxia and oxygen weaning,iv steriods. Quality Stroke Does the patient have a stroke diagnosis?: No VTE Prior VTE?: No VTE Risk Level:: Medical - moderate - high VTE Device Contraindication: N/A - Device Ordered VTE Drug Contraindication: N/A - Med Ordered
[2023-09-17] MEDS: guaiFENesin DM 100/10/5 ML 5 ML SYRUP PO ×4 (00:39→21:28)
[2023-09-17] MEDS: Melatonin 3 MG TABLET 6 MG PO (00:39)
[2023-09-17 03:33] VITALS: BP 131/78; PULSE 94; RESP 22; TEMP 36.8; O2SAT 98
[2023-09-17] MEDS: Omeprazole 20 MG CAPSULE.DR PO (05:37)
[2023-09-17] MEDS: 0.9 % Sodium Chloride Flush 3 ML SYRINGE IVFLUSH ×4 (05:39→21:28)
[2023-09-17 08:00] VITALS: BP 130/68; PULSE 104; RESP 20; TEMP 36.6; O2SAT 93
[2023-09-17] MEDS: Enoxaparin Sodium 40 MG/0.4 ML SYRINGE SUBCUT ×2 (08:04→21:28)
[2023-09-17] MEDS: Sodium,Potassium Phosphates POWD.PACK 1 PACKET PO ×2 (08:04→21:28)
[2023-09-17] MEDS: Zinc Sulfate 220 MG CAPSULE PO ×2 (08:05→21:28)
[2023-09-17] MEDS: Ascorbic Acid 500 MG TABLET PO (08:05)
[2023-09-17] MEDS: Loratadine 10 MG TABLET PO (08:05)
[2023-09-17] MEDS: guaiFENesin LA 600 MG TAB.ER.12H PO ×2 (08:05→21:28)
[2023-09-17] MEDS: methylPREDNISolone Sod Succ 125 MG/2 ML VIAL 40 MG IVPUSH (08:05)
[2023-09-17] MEDS: Benzonatate 100 MG CAPSULE 200 MG PO ×2 (08:05→17:33)
[2023-09-17 11:30] VITALS: BP 124/76; PULSE 99; RESP 20; TEMP 36.4; O2SAT 95
--- NOTE | 2023-09-17 12:29 | HO.PM.IMPN ---
Subjective Subjective Date of Service: 09/17/23 Interval History: hypoxia/covid Review of Systems Still short of breath with minimal exertion denies any chest pain or any new complaints Has cough. No fever Physical Exam Vital Signs: Vital Signs: Last Vital Signs Temp 97.6 F 09/17/23 11:30 Pulse 99 09/17/23 11:30 Resp 20 09/17/23 11:30 BP 124/76 09/17/23 11:30 Pulse Ox 95 09/17/23 11:30 O2 Del Method Nasal Cannula 09/17/23 11:30 O2 Flow Rate 5 09/17/23 11:30 FiO2 35 09/14/23 04:00 BMI result Body Mass Index 39.2 Gen: in no acute distress Lungs: air entry somewhat diminshed at bases ,no rales or wheezing Heart: [id number]. Abd: soft,nd,nt ,bs present. Ext: no edema Skin: no cyanosis or edema Neuro: alert and oriented x3, no focal findings Psych: appropriate affect Objective Data Active Medications Acetaminophen (Acetaminophen 325 Mg Tablet) 650 mg PO Q6H PRN PRN Reason: Pain, Mild (Pain Scale 1-3) Last Admin: 09/14/23 23:34 Dose: 650 mg Documented By: SOHAIL Al Hydroxide/Mg Hydroxide (Magnesium Hydrox/Alum Hydrox 30 Ml Oral.Susp) 30 ml PO Q4H PRN PRN Reason: Heartburn/Nausea Ascorbic Acid (Ascorbic Acid 500 Mg Tablet) 500 mg PO DAILY [facility] Last Admin: 09/17/23 08:05 Dose: 500 mg Documented By: EM Benzocaine (Throat Lozenge, Medicated Lozenge) 1 lozenge MUCOUS MEM Q2H PRN PRN Reason: Sore Throat Last Admin: 09/14/23 17:47 Dose: 1 lozenge Documented By: EM Benzonatate (Benzonatate 100 Mg Capsule) 200 mg PO TID PRN PRN Reason: Cough Last Admin: 09/17/23 08:05 Dose: 200 mg Documented By: EM Docusate Sodium (Docusate Sodium 100 Mg Capsule) 100 mg PO BID [facility] Last Admin: 09/17/23 07:48 Dose: Not Given Documented By: EM Non-Admin Reason: Patient Refused Enoxaparin Sodium (Enoxaparin Sodium 40 Mg/0.4 Ml Syringe) 40 mg SUBCUT Q12H [facility] Last Admin: 09/17/23 08:04 Dose: 40 mg Documented By: EM Guaifenesin (Guaifenesin La 600 Mg Tab.Er.12h) 600 mg PO BID [facility] Last Admin: 09/17/23 08:05 Dose: 600 mg Documented By: EM Guaifenesin/Dextromethorphan (Guaifenesin Dm 100/10/5 Ml 5 Ml Syrup) 5 ml PO Q4H PRN PRN Reason: cough Last Admin: 09/17/23 05:37 Dose: 5 ml Documented By: SUMAYA Guaifenesin/Dextromethorphan (Guaifenesin Dm 600/30 1 Tab Tab.Er.12h) 1 tab PO BID PRN PRN Reason: Congestion Last Admin: 09/14/23 17:47 Dose: 1 tab Documented By: EM Loratadine (Loratadine 10 Mg Tablet) 10 mg PO DAILY [facility] Last Admin: 09/17/23 08:05 Dose: 10 mg Documented By: EM Melatonin (Melatonin 3 Mg Tablet) 6 mg PO BEDTIME PRN PRN Reason: Insomnia Last Admin: 09/17/23 00:39 Dose: 6 mg Documented By: SUMAYA Methylprednisolone Sodium Succinate (Methylprednisolone Sod Succ 125 Mg/2 Ml Vial) 40 mg IVPUSH DAILY [facility] Last Admin: 09/17/23 08:05 Dose: 40 mg Documented By: EM Omeprazole (Omeprazole 20 Mg Capsule.) 20 mg PO DAILY@0630 [facility] Last Admin: 09/17/23 05:37 Dose: 20 mg Documented By: SUMAYA Ondansetron HCl (Ondansetron Hcl 4 Mg/2 Ml Vial) 4 mg IVPUSH Q8H PRN PRN Reason: Nausea and Vomiting Last Admin: 09/04/23 04:15 Dose: 4 mg Documented By: MADISON Potassium Phos/Sodium Phos (Sodium,Potassium Phosphates Powd.Pack) 1 packet PO BID [facility] Last Admin: 09/17/23 08:04 Dose: 1 packet Documented By: EM Sodium Chloride (0.9 % Sodium Chloride Flush 3 Ml Syringe) 3 ml IVFLUSH QSHIFT [facility] Last Admin: 09/17/23 08:04 Dose: 3 ml Documented By: EM Zinc Sulfate (Zinc Sulfate 220 Mg Capsule) 220 mg PO BID [facility] Last Admin: 09/17/23 08:05 Dose: 220 mg Documented By: EM Labs 09/15/23 07:01 09/15/23 07:01 Assessment and Plan (1) Acute respiratory failure with hypoxia: Status: Acute Plan Day15 58yo M with asthma, recently diagnosed with Covid-19 08/26/23 admitted with hypoxia Acute hypoxemic respiratory failure possible sec acute asthma exacerbation, and viral sepsis due to severe Covid-19 infection ID consulted, on baricitinib 09/04-09/17/23, solumedrol 40 mg daily- continue to wean offhigh flow ,but still on 5-6 liter NC CRP improved significantly, CT A/P 09/03 negative for PE no signs of bacterial infection, vanco + Zosyn , standing/prn nebs VTE ppx- LMWH dispo- will likely need STR In my clinical judgment, the patient requires continued inpatient hospitalization for the following reasons:need of significant oxygen(dependent) as well as pressure (flow) due to Acute hypoxemic respiratory failure possible sec acute asthma exacerbation, and viral sepsis due to severe Covid-19 infection-need moniter for hypoxia and oxygen weaning,iv steriods. Quality Stroke Does the patient have a stroke diagnosis?: No VTE Prior VTE?: No VTE Risk Level:: Medical - moderate - high VTE Device Contraindication: N/A - Device Ordered VTE Drug Contraindication: N/A - Med Ordered
[2023-09-17 15:29] VITALS: BP 108/68; PULSE 100; RESP 15; TEMP 36.7; O2SAT 96
[2023-09-17 19:30] VITALS: BP 106/68; PULSE 100; RESP 16; TEMP 36.8; O2SAT 97
[2023-09-17 23:53] VITALS: BP 111/69; PULSE 94; RESP 20; TEMP 36.4; O2SAT 97
[2023-09-18] MEDS: Melatonin 3 MG TABLET 6 MG PO ×2 (00:36→22:49)
[2023-09-18] MEDS: guaiFENesin DM 100/10/5 ML 5 ML SYRUP PO ×2 (03:10→13:12)
[2023-09-18] MEDS: Benzonatate 100 MG CAPSULE 200 MG PO ×3 (03:10→22:49)
[2023-09-18 03:34] VITALS: BP 114/71; PULSE 92; RESP 20; TEMP 36.6; O2SAT 96
[2023-09-18] MEDS: Omeprazole 20 MG CAPSULE.DR PO (06:04)
[2023-09-18 07:57] VITALS: BP 108/70; PULSE 93; RESP 20; TEMP 36.1; O2SAT 94
[2023-09-18] MEDS: Zinc Sulfate 220 MG CAPSULE PO ×2 (09:19→22:49)
[2023-09-18] MEDS: guaiFENesin LA 600 MG TAB.ER.12H PO ×2 (09:19→22:49)
[2023-09-18] MEDS: Sodium,Potassium Phosphates POWD.PACK 1 PACKET PO ×2 (09:19→22:49)
[2023-09-18] MEDS: Ascorbic Acid 500 MG TABLET PO (09:19)
[2023-09-18] MEDS: methylPREDNISolone Sod Succ 125 MG/2 ML VIAL 40 MG IVPUSH (09:19)
[2023-09-18] MEDS: 0.9 % Sodium Chloride Flush 3 ML SYRINGE IVFLUSH ×3 (09:19→22:50)
[2023-09-18] MEDS: Loratadine 10 MG TABLET PO (09:19)
[2023-09-18] MEDS: Enoxaparin Sodium 40 MG/0.4 ML SYRINGE SUBCUT ×2 (09:20→22:49)
[2023-09-18 11:21] VITALS: BP 118/70; PULSE 100; RESP 20; TEMP 36.2; O2SAT 95
--- NOTE | 2023-09-18 14:45 | P.PNIM_ITS ---
Subjective Subjective Date of Service: 09/18/23 Interval History: hypoxia/covid Review of Systems short of breath with minimal exertion Has cough. No fever Review of Systems: Yes all other systems are reviewed and are negative Physical Exam 2 Vital Signs: Vital Signs: Last Vital Signs Temp 97.1 F 09/18/23 11:21 Pulse 100 09/18/23 11:21 Resp 20 09/18/23 11:21 BP 118/70 09/18/23 11:21 Pulse Ox 95 09/18/23 11:21 O2 Del Method Nasal Cannula 09/18/23 11:21 O2 Flow Rate 5 09/18/23 11:21 FiO2 35 09/14/23 04:00 BMI result Body Mass Index 39.2 Gen: in no acute distress Lungs: air entry somewhat diminshed at bases ,no rales or wheezing Heart: [id number]. Abd: soft,nd,nt ,bs present. Ext: no edema Skin: no cyanosis or edema Neuro: alert and oriented x3, no focal findings Psych: appropriate affect Objective Data Active Medications Acetaminophen (Acetaminophen 325 Mg Tablet) 650 mg PO Q6H PRN PRN Reason: Pain, Mild (Pain Scale 1-3) Last Admin: 09/14/23 23:34 Dose: 650 mg Documented By: SOHAIL Al Hydroxide/Mg Hydroxide (Magnesium Hydrox/Alum Hydrox 30 Ml Oral.Susp) 30 ml PO Q4H PRN PRN Reason: Heartburn/Nausea Ascorbic Acid (Ascorbic Acid 500 Mg Tablet) 500 mg PO DAILY [facility] Last Admin: 09/18/23 09:19 Dose: 500 mg Documented By: EM Benzocaine (Throat Lozenge, Medicated Lozenge) 1 lozenge MUCOUS MEM Q2H PRN PRN Reason: Sore Throat Last Admin: 09/14/23 17:47 Dose: 1 lozenge Documented By: EM Benzonatate (Benzonatate 100 Mg Capsule) 200 mg PO TID PRN PRN Reason: Cough Last Admin: 09/18/23 14:18 Dose: 200 mg Documented By: EM Docusate Sodium (Docusate Sodium 100 Mg Capsule) 100 mg PO BID [facility] Last Admin: 09/18/23 09:20 Dose: Not Given Documented By: EM Non-Admin Reason: Patient Refused Enoxaparin Sodium (Enoxaparin Sodium 40 Mg/0.4 Ml Syringe) 40 mg SUBCUT Q12H [facility] Last Admin: 09/18/23 09:20 Dose: 40 mg Documented By: EM Guaifenesin (Guaifenesin La 600 Mg Tab.Er.12h) 600 mg PO BID [facility] Last Admin: 09/18/23 09:19 Dose: 600 mg Documented By: EM Guaifenesin/Dextromethorphan (Guaifenesin Dm 100/10/5 Ml 5 Ml Syrup) 5 ml PO Q4H PRN PRN Reason: cough Last Admin: 09/18/23 13:12 Dose: 5 ml Documented By: ME Guaifenesin/Dextromethorphan (Guaifenesin Dm 600/30 1 Tab Tab.Er.12h) 1 tab PO BID PRN PRN Reason: Congestion Last Admin: 09/14/23 17:47 Dose: 1 tab Documented By: EM Loratadine (Loratadine 10 Mg Tablet) 10 mg PO DAILY [facility] Last Admin: 09/18/23 09:19 Dose: 10 mg Documented By: EM Melatonin (Melatonin 3 Mg Tablet) 6 mg PO BEDTIME PRN PRN Reason: Insomnia Last Admin: 09/18/23 00:36 Dose: 6 mg Documented By: SUMAYA Methylprednisolone Sodium Succinate (Methylprednisolone Sod Succ 125 Mg/2 Ml Vial) 40 mg IVPUSH DAILY [facility] Last Admin: 09/18/23 09:19 Dose: 40 mg Documented By: EM Omeprazole (Omeprazole 20 Mg Capsule.) 20 mg PO DAILY@0630 [facility] Last Admin: 09/18/23 06:04 Dose: 20 mg Documented By: SUMAYA Ondansetron HCl (Ondansetron Hcl 4 Mg/2 Ml Vial) 4 mg IVPUSH Q8H PRN PRN Reason: Nausea and Vomiting Last Admin: 09/04/23 04:15 Dose: 4 mg Documented By: MADISON Potassium Phos/Sodium Phos (Sodium,Potassium Phosphates Powd.Pack) 1 packet PO BID [facility] Last Admin: 09/18/23 09:19 Dose: 1 packet Documented By: EM Sodium Chloride (0.9 % Sodium Chloride Flush 3 Ml Syringe) 3 ml IVFLUSH QSHIFT [facility] Last Admin: 09/18/23 09:19 Dose: 3 ml Documented By: EM Zinc Sulfate (Zinc Sulfate 220 Mg Capsule) 220 mg PO BID [facility] Last Admin: 09/18/23 09:19 Dose: 220 mg Documented By: EM Labs 09/15/23 07:01 09/15/23 07:01 Assessment and Plan (1) Sepsis due to COVID-19: Status: Acute (2) Obesity (BMI 35.0-39.9 without comorbidity): Status: Acute (3) Acute asthma exacerbation: Status: Acute Assessment and Plan: Day16 58yo M with asthma, recently diagnosed with Covid-19 08/26/23 admitted with hypoxia Acute hypoxemic respiratory failure possible sec acute asthma exacerbation, and viral sepsis due to severe Covid-19 infection offhigh flow ,but still on 5-6 liter NC CRP improved significantly, CT A/P 09/03 negative for PE no signs of bacterial infection, CRP improved significantly-vanco + Zosyn discontinued completed baricitinib 09/04-09/17/23, solumedrol 40 mg daily- continue to wean,, standing/prn nebs,taper oxygen generalised weak: added PT VTE ppx- LMWH dispo- will likely need STR In my clinical judgment, the patient requires continued inpatient hospitalization for the following reasons:need of significant oxygen(dependent) as well as pressure (flow) due to Acute hypoxemic respiratory failure possible sec acute asthma exacerbation, and viral sepsis due to severe Covid-19 infection-need moniter for hypoxia and oxygen weaning,iv steriods. Quality Stroke Does the patient have a stroke diagnosis?: No VTE Prior VTE?: No VTE Risk Level:: Medical - moderate - high VTE Device Contraindication: N/A - Device Ordered VTE Drug Contraindication: N/A - Med Ordered
[2023-09-18 15:20] VITALS: BP 128/69; PULSE 100; RESP 20; TEMP 36.3; O2SAT 96
[2023-09-18 19:15] VITALS: BP 117/65; PULSE 112; RESP 22; TEMP 36.9; O2SAT 94
[2023-09-18 23:43] VITALS: BP 115/56; PULSE 100; RESP 20; TEMP 36.4; O2SAT 96
[2023-09-19 04:00] VITALS: BP 110/60; PULSE 101; RESP 20; TEMP 36.6; O2SAT 92
[2023-09-19] MEDS: Omeprazole 20 MG CAPSULE.DR PO (05:28)
[2023-09-19] MEDS: guaiFENesin DM 100/10/5 ML 5 ML SYRUP PO (05:28)
[2023-09-19 08:00] VITALS: BP 107/74; PULSE 110; RESP 20; TEMP 36.3; O2SAT 95
[2023-09-19] MEDS: Enoxaparin Sodium 40 MG/0.4 ML SYRINGE SUBCUT ×2 (09:07→21:51)
[2023-09-19] MEDS: Ascorbic Acid 500 MG TABLET PO (09:07)
[2023-09-19] MEDS: Loratadine 10 MG TABLET PO (09:07)
[2023-09-19] MEDS: Zinc Sulfate 220 MG CAPSULE PO ×2 (09:07→21:51)
[2023-09-19] MEDS: Sodium,Potassium Phosphates POWD.PACK 1 PACKET PO ×2 (09:07→21:51)
[2023-09-19] MEDS: Benzonatate 100 MG CAPSULE 200 MG PO ×3 (09:07→23:31)
[2023-09-19] MEDS: guaiFENesin LA 600 MG TAB.ER.12H PO ×2 (09:07→21:50)
[2023-09-19] MEDS: methylPREDNISolone Sod Succ 125 MG/2 ML VIAL 40 MG IVPUSH (09:07)
[2023-09-19] MEDS: 0.9 % Sodium Chloride Flush 3 ML SYRINGE IVFLUSH ×2 (09:08→15:41)
[2023-09-19 11:39] VITALS: BP 120/70; PULSE 98; RESP 20; TEMP 36.4; O2SAT 94
[2023-09-19 15:32] VITALS: BP 104/66; PULSE 108; RESP 16; TEMP 36.6; O2SAT 97
--- NOTE | 2023-09-19 15:42 | HO.PM.IMPN ---
Subjective Subjective Date of Service: 09/19/23 Interval History: hypoxia/covid Review of Systems sob imprving ,feels generlaised weak and deconditioned short of breath with minimal exertion Physical Exam Vital Signs: Vital Signs: Last Vital Signs Temp 97.9 F 09/19/23 15:32 Pulse 108 H 09/19/23 15:32 Resp 16 09/19/23 15:32 BP 104/66 09/19/23 15:32 Pulse Ox 97 09/19/23 15:32 O2 Del Method Nasal Cannula 09/19/23 15:32 O2 Flow Rate 2 09/19/23 15:32 FiO2 35 09/14/23 04:00 BMI result Body Mass Index 39.2 Gen: in no acute distress Lungs: air entry somewhat diminshed at bases ,no rales or wheezing Heart: [id number]. Abd: soft,nd,nt ,bs present. Ext: no edema Skin: no cyanosis or edema Neuro: alert and oriented x3, no focal findings Psych: appropriate affect Objective Data Active Medications Acetaminophen (Acetaminophen 325 Mg Tablet) 650 mg PO Q6H PRN PRN Reason: Pain, Mild (Pain Scale 1-3) Last Admin: 09/14/23 23:34 Dose: 650 mg Documented By: SOHAIL Al Hydroxide/Mg Hydroxide (Magnesium Hydrox/Alum Hydrox 30 Ml Oral.Susp) 30 ml PO Q4H PRN PRN Reason: Heartburn/Nausea Ascorbic Acid (Ascorbic Acid 500 Mg Tablet) 500 mg PO DAILY [facility] Last Admin: 09/19/23 09:07 Dose: 500 mg Documented By: EM Benzocaine (Throat Lozenge, Medicated Lozenge) 1 lozenge MUCOUS MEM Q2H PRN PRN Reason: Sore Throat Last Admin: 09/14/23 17:47 Dose: 1 lozenge Documented By: EM Benzonatate (Benzonatate 100 Mg Capsule) 200 mg PO TID PRN PRN Reason: Cough Last Admin: 09/19/23 15:40 Dose: 200 mg Documented By: EM Docusate Sodium (Docusate Sodium 100 Mg Capsule) 100 mg PO BID [facility] Last Admin: 09/19/23 09:08 Dose: Not Given Documented By: EM Non-Admin Reason: Patient Refused Enoxaparin Sodium (Enoxaparin Sodium 40 Mg/0.4 Ml Syringe) 40 mg SUBCUT Q12H [facility] Last Admin: 09/19/23 09:07 Dose: 40 mg Documented By: EM Guaifenesin (Guaifenesin La 600 Mg Tab.Er.12h) 600 mg PO BID [facility] Last Admin: 09/19/23 09:07 Dose: 600 mg Documented By: EM Guaifenesin/Dextromethorphan (Guaifenesin Dm 100/10/5 Ml 5 Ml Syrup) 5 ml PO Q4H PRN PRN Reason: cough Last Admin: 09/19/23 05:28 Dose: 5 ml Documented By: MONCHO Guaifenesin/Dextromethorphan (Guaifenesin Dm 600/30 1 Tab Tab.Er.12h) 1 tab PO BID PRN PRN Reason: Congestion Last Admin: 09/14/23 17:47 Dose: 1 tab Documented By: EM Loratadine (Loratadine 10 Mg Tablet) 10 mg PO DAILY [facility] Last Admin: 09/19/23 09:07 Dose: 10 mg Documented By: EM Melatonin (Melatonin 3 Mg Tablet) 6 mg PO BEDTIME PRN PRN Reason: Insomnia Last Admin: 09/18/23 22:49 Dose: 6 mg Documented By: MONCHO Methylprednisolone Sodium Succinate (Methylprednisolone Sod Succ 125 Mg/2 Ml Vial) 40 mg IVPUSH DAILY [facility] Last Admin: 09/19/23 09:07 Dose: 40 mg Documented By: EM Omeprazole (Omeprazole 20 Mg Capsule.) 20 mg PO DAILY@0630 [facility] Last Admin: 09/19/23 05:28 Dose: 20 mg Documented By: MONCHO Ondansetron HCl (Ondansetron Hcl 4 Mg/2 Ml Vial) 4 mg IVPUSH Q8H PRN PRN Reason: Nausea and Vomiting Last Admin: 09/04/23 04:15 Dose: 4 mg Documented By: MADISON Potassium Phos/Sodium Phos (Sodium,Potassium Phosphates Powd.Pack) 1 packet PO BID [facility] Last Admin: 09/19/23 09:07 Dose: 1 packet Documented By: EM Sodium Chloride (0.9 % Sodium Chloride Flush 3 Ml Syringe) 3 ml IVFLUSH QSHIFT [facility] Last Admin: 09/19/23 15:41 Dose: 3 ml Documented By: EM Zinc Sulfate (Zinc Sulfate 220 Mg Capsule) 220 mg PO BID [facility] Last Admin: 09/19/23 09:07 Dose: 220 mg Documented By: EM Labs 09/15/23 07:01 09/15/23 07:01 Assessment and Plan (1) Acute asthma exacerbation: Status: Acute (2) Sepsis due to COVID-19: Status: Acute Plan Day17 58yo M with asthma, recently diagnosed with Covid-19 08/26/23 admitted with hypoxia Acute hypoxemic respiratory failure possible sec acute asthma exacerbation, and viral sepsis due to severe Covid-19 infection offhigh flow , taper nasal canual slowly on 4 liter CRP improved significantly, CT A/P 09/03 negative for PE no signs of bacterial infection, CRP improved significantly-vanco + Zosyn discontinued. completed baricitinib 09/04-09/17/23, solumedrol 40 mg daily- continue to wean, standing/prn nebs,taper oxygen generalised weak: added PT VTE ppx- LMWH dispo- will likely need STR In my clinical judgment, the patient requires continued inpatient hospitalization for the following reasons:need of significant oxygen(dependent) as well as pressure (flow) due to Acute hypoxemic respiratory failure possible sec acute asthma exacerbation, and viral sepsis due to severe Covid-19 infection-need moniter for hypoxia and oxygen weaning,iv steriods. Quality Stroke Does the patient have a stroke diagnosis?: No VTE Prior VTE?: No VTE Risk Level:: Medical - moderate - high VTE Device Contraindication: N/A - Device Ordered VTE Drug Contraindication: N/A - Med Ordered
[2023-09-19 20:00] VITALS: BP 110/65; PULSE 111; RESP 18; TEMP 36.7; O2SAT 94
[2023-09-19] MEDS: Melatonin 3 MG TABLET 6 MG PO (23:31)
[2023-09-19 23:51] VITALS: BP 128/78; PULSE 99; RESP 18; TEMP 36.3; O2SAT 96
[2023-09-20 03:32] VITALS: BP 152/89; PULSE 92; RESP 20; TEMP 36.9; O2SAT 95
[2023-09-20] MEDS: Omeprazole 20 MG CAPSULE.DR PO (05:32)
[2023-09-20] MEDS: guaiFENesin DM 100/10/5 ML 5 ML SYRUP PO ×2 (05:33→18:03)
[2023-09-20 07:24] VITALS: BP 162/82; PULSE 93; RESP 13; TEMP 36.2; O2SAT 99
[2023-09-20] MEDS: Sodium,Potassium Phosphates POWD.PACK 1 PACKET PO ×2 (07:54→22:26)
[2023-09-20] MEDS: Ascorbic Acid 500 MG TABLET PO (07:54)
[2023-09-20] MEDS: guaiFENesin LA 600 MG TAB.ER.12H PO ×2 (07:54→22:25)
[2023-09-20] MEDS: Zinc Sulfate 220 MG CAPSULE PO ×2 (07:54→22:25)
[2023-09-20] MEDS: Loratadine 10 MG TABLET PO (07:54)
[2023-09-20] MEDS: Enoxaparin Sodium 40 MG/0.4 ML SYRINGE SUBCUT ×2 (07:54→22:25)
[2023-09-20] MEDS: methylPREDNISolone Sod Succ 125 MG/2 ML VIAL 40 MG IVPUSH (07:54)
[2023-09-20] MEDS: 0.9 % Sodium Chloride Flush 3 ML SYRINGE IVFLUSH ×3 (07:55→22:26)
[2023-09-20 11:44] VITALS: BP 129/84; PULSE 111; RESP 12; TEMP 36.3; O2SAT 93
--- NOTE | 2023-09-20 14:35 | MHC.CM.PN ---
CM met with pt. to ask his preference for VNA, he did not have one. Pt asked CM about paperwork from his health insurance co. and said he needed information on his hosp. stay. CM let him know that when he is DC he will receive a packet of information which he can use to complete these forms, and then he can follow up with his PCP to complete paperwork for FMLA. Pt understood. Referral in for [facility], accepting of Pt.
[2023-09-20 15:23] VITALS: BP 127/71; PULSE 112; RESP 13; TEMP 36.4; O2SAT 98
--- NOTE | 2023-09-20 15:26 | HO.PM.IMPN ---
Subjective Subjective Date of Service: 09/20/23 Interval History: No acute issues overnight Review of Systems Denies chest pain Denies shortness of breath Denies nausea vomiting diarrhea Denies fever chills Physical Exam Vital Signs: Vital Signs: Last Vital Signs Temp 97.6 F 09/20/23 15:23 Pulse 112 H 09/20/23 15:23 Resp 13 09/20/23 15:23 BP 127/71 09/20/23 15:23 Pulse Ox 98 09/20/23 15:23 O2 Del Method Nasal Cannula 09/20/23 15:23 O2 Flow Rate 5 09/20/23 15:23 FiO2 35 09/14/23 04:00 BMI result Body Mass Index 39.2 Const: Other: Awake alert no acute distress Resp: Other: Clear to auscultation bilaterally no rales rhonchi wheezes Cardio: Other: No S4; positive S1-S2; no S3 murmurs rubs or gallops GI: Other: Soft nontender nondistended normoactive bowel sounds Extrem: Other: No edema bilaterally Objective Data Active Medications Acetaminophen (Acetaminophen 325 Mg Tablet) 650 mg PO Q6H PRN PRN Reason: Pain, Mild (Pain Scale 1-3) Last Admin: 09/14/23 23:34 Dose: 650 mg Documented By: SOHAIL Al Hydroxide/Mg Hydroxide (Magnesium Hydrox/Alum Hydrox 30 Ml Oral.Susp) 30 ml PO Q4H PRN PRN Reason: Heartburn/Nausea Ascorbic Acid (Ascorbic Acid 500 Mg Tablet) 500 mg PO DAILY [facility] Last Admin: 09/20/23 07:54 Dose: 500 mg Documented By: JOHN Benzocaine (Throat Lozenge, Medicated Lozenge) 1 lozenge MUCOUS MEM Q2H PRN PRN Reason: Sore Throat Last Admin: 09/14/23 17:47 Dose: 1 lozenge Documented By: EM Benzonatate (Benzonatate 100 Mg Capsule) 200 mg PO TID PRN PRN Reason: Cough Last Admin: 09/19/23 23:31 Dose: 200 mg Documented By: MANNY Docusate Sodium (Docusate Sodium 100 Mg Capsule) 100 mg PO BID [facility] Last Admin: 09/20/23 08:18 Dose: Not Given Documented By: JOHN Non-Admin Reason: Patient Refused Enoxaparin Sodium (Enoxaparin Sodium 40 Mg/0.4 Ml Syringe) 40 mg SUBCUT Q12H [facility] Last Admin: 09/20/23 07:54 Dose: 40 mg Documented By: JOHN Guaifenesin (Guaifenesin La 600 Mg Tab.Er.12h) 600 mg PO BID [facility] Last Admin: 09/20/23 07:54 Dose: 600 mg Documented By: JOHN Guaifenesin/Dextromethorphan (Guaifenesin Dm 100/10/5 Ml 5 Ml Syrup) 5 ml PO Q4H PRN PRN Reason: cough Last Admin: 09/20/23 05:33 Dose: 5 ml Documented By: MANNY Guaifenesin/Dextromethorphan (Guaifenesin Dm 600/30 1 Tab Tab.Er.12h) 1 tab PO BID PRN PRN Reason: Congestion Last Admin: 09/14/23 17:47 Dose: 1 tab Documented By: EM Loratadine (Loratadine 10 Mg Tablet) 10 mg PO DAILY [facility] Last Admin: 09/20/23 07:54 Dose: 10 mg Documented By: JOHN Melatonin (Melatonin 3 Mg Tablet) 6 mg PO BEDTIME PRN PRN Reason: Insomnia Last Admin: 09/19/23 23:31 Dose: 6 mg Documented By: MANNY Methylprednisolone Sodium Succinate (Methylprednisolone Sod Succ 125 Mg/2 Ml Vial) 40 mg IVPUSH DAILY [facility] Last Admin: 09/20/23 07:54 Dose: 40 mg Documented By: JOHN Omeprazole (Omeprazole 20 Mg Capsule.) 20 mg PO DAILY@0630 [facility] Last Admin: 09/20/23 05:32 Dose: 20 mg Documented By: MANNY Ondansetron HCl (Ondansetron Hcl 4 Mg/2 Ml Vial) 4 mg IVPUSH Q8H PRN PRN Reason: Nausea and Vomiting Last Admin: 09/04/23 04:15 Dose: 4 mg Documented By: MADISON Potassium Phos/Sodium Phos (Sodium,Potassium Phosphates Powd.Pack) 1 packet PO BID [facility] Last Admin: 09/20/23 07:54 Dose: 1 packet Documented By: JOHN Sodium Chloride (0.9 % Sodium Chloride Flush 3 Ml Syringe) 3 ml IVFLUSH QSHIFT [facility] Last Admin: 09/20/23 07:55 Dose: 3 ml Documented By: JOHN Zinc Sulfate (Zinc Sulfate 220 Mg Capsule) 220 mg PO BID [facility] Last Admin: 09/20/23 07:54 Dose: 220 mg Documented By: JOHN Labs 09/15/23 07:01 09/15/23 07:01 Assessment and Plan (1) Acute respiratory failure with hypoxia: Status: Acute Plan Day17 58yo M with asthma, recently diagnosed with Covid-19 08/26/23 admitted with hypoxia 1.Acute hypoxemic respiratory failure possible sec acute asthma exacerbation, and viral sepsis due to severe Covid-19 infection Responded well to therapies. Continues to improve. Now with no O2 requirement Will likely DC in a.m. Seen by Physical therapy deemed appropriate for home with services Require ongoing hospitalization until therapies are set up for home services Quality Stroke Does the patient have a stroke diagnosis?: No VTE Prior VTE?: No VTE Risk Level:: Medical - moderate - high VTE Device Contraindication: N/A - Device Ordered VTE Drug Contraindication: N/A - Med Ordered
[2023-09-20 19:56] VITALS: BP 123/68; PULSE 110; RESP 18; TEMP 36.8; O2SAT 94
[2023-09-20] MEDS: Benzonatate 100 MG CAPSULE 200 MG PO (22:25)
[2023-09-20] MEDS: Melatonin 3 MG TABLET 6 MG PO (22:25)
[2023-09-21] VITALS (7 sets, daily range): BP systolic 103–166; BP diastolic 63–79; PULSE 84–111; RESP 14–20; TEMP 36.1–36.9; O2SAT 94–98
[2023-09-21] MEDS: Acetaminophen 325 MG TABLET 650 MG PO ×2 (06:00→18:37)
[2023-09-21] MEDS: Omeprazole 20 MG CAPSULE.DR PO (06:00)
[2023-09-21] MEDS: Magnesium Hydrox/Alum Hydrox 30 ML ORAL.SUSP PO (06:01)
[2023-09-21] MEDS: Zinc Sulfate 220 MG CAPSULE PO ×2 (09:07→20:07)
[2023-09-21] MEDS: Sodium,Potassium Phosphates POWD.PACK 1 PACKET PO ×2 (09:07→20:09)
[2023-09-21] MEDS: Loratadine 10 MG TABLET PO (09:07)
[2023-09-21] MEDS: guaiFENesin LA 600 MG TAB.ER.12H PO ×2 (09:07→20:06)
[2023-09-21] MEDS: Ascorbic Acid 500 MG TABLET PO (09:07)
[2023-09-21] MEDS: Enoxaparin Sodium 40 MG/0.4 ML SYRINGE SUBCUT ×2 (09:07→20:07)
[2023-09-21] MEDS: Benzonatate 100 MG CAPSULE 200 MG PO ×3 (09:07→23:44)
[2023-09-21] MEDS: 0.9 % Sodium Chloride Flush 3 ML SYRINGE IVFLUSH (09:08)
[2023-09-21] MEDS: guaiFENesin DM 100/10/5 ML 5 ML SYRUP PO ×2 (14:34→20:06)
--- NOTE | 2023-09-21 15:05 | HO.PM.IMPN ---
Subjective Subjective Date of Service: 09/21/23 Interval History: Breathing slow to improve.. Review of Systems Denies chest pain Denies shortness of breath Denies nausea vomiting diarrhea Denies fever chills Physical Exam Vital Signs: Vital Signs: Last Vital Signs Temp 97.3 F 09/21/23 11:51 Pulse 105 H 09/21/23 11:51 Resp 14 09/21/23 11:51 BP 128/79 09/21/23 11:51 Pulse Ox 97 09/21/23 11:51 O2 Del Method Nasal Cannula 09/21/23 11:51 O2 Flow Rate 2 09/21/23 11:51 FiO2 35 09/14/23 04:00 BMI result Body Mass Index 39.2 Const: Other: Awake alert no acute distress Resp: Other: Clear to auscultation bilaterally no rales rhonchi wheezes Cardio: Other: No S4; positive S1-S2; no S3 murmurs rubs or gallops GI: Other: Soft nontender nondistended normoactive bowel sounds Extrem: Other: No edema bilaterally Objective Data Active Medications Acetaminophen (Acetaminophen 325 Mg Tablet) 650 mg PO Q6H PRN PRN Reason: Pain, Mild (Pain Scale 1-3) Last Admin: 09/21/23 06:00 Dose: 650 mg Documented By: MANNY Al Hydroxide/Mg Hydroxide (Magnesium Hydrox/Alum Hydrox 30 Ml Oral.Susp) 30 ml PO Q4H PRN PRN Reason: Heartburn/Nausea Last Admin: 09/21/23 06:01 Dose: 30 ml Documented By: MANNY Ascorbic Acid (Ascorbic Acid 500 Mg Tablet) 500 mg PO DAILY [facility] Last Admin: 09/21/23 09:07 Dose: 500 mg Documented By: ROMMEL Benzocaine (Throat Lozenge, Medicated Lozenge) 1 lozenge MUCOUS MEM Q2H PRN PRN Reason: Sore Throat Last Admin: 09/14/23 17:47 Dose: 1 lozenge Documented By: EM Benzonatate (Benzonatate 100 Mg Capsule) 200 mg PO TID PRN PRN Reason: Cough Last Admin: 09/21/23 14:34 Dose: 200 mg Documented By: ROMMEL Docusate Sodium (Docusate Sodium 100 Mg Capsule) 100 mg PO BID [facility] Last Admin: 09/21/23 09:13 Dose: Not Given Documented By: ROMMEL Non-Admin Reason: Patient Refused Enoxaparin Sodium (Enoxaparin Sodium 40 Mg/0.4 Ml Syringe) 40 mg SUBCUT Q12H [facility] Last Admin: 09/21/23 09:07 Dose: 40 mg Documented By: ROMMEL Guaifenesin (Guaifenesin La 600 Mg Tab.Er.12h) 600 mg PO BID [facility] Last Admin: 09/21/23 09:07 Dose: 600 mg Documented By: ROMMEL Guaifenesin/Dextromethorphan (Guaifenesin Dm 100/10/5 Ml 5 Ml Syrup) 5 ml PO Q4H PRN PRN Reason: cough Last Admin: 09/21/23 14:34 Dose: 5 ml Documented By: ROMMEL Guaifenesin/Dextromethorphan (Guaifenesin Dm 600/30 1 Tab Tab.Er.12h) 1 tab PO BID PRN PRN Reason: Congestion Last Admin: 09/14/23 17:47 Dose: 1 tab Documented By: EM Loratadine (Loratadine 10 Mg Tablet) 10 mg PO DAILY [facility] Last Admin: 09/21/23 09:07 Dose: 10 mg Documented By: ROMMEL Melatonin (Melatonin 3 Mg Tablet) 6 mg PO BEDTIME PRN PRN Reason: Insomnia Last Admin: 09/20/23 22:25 Dose: 6 mg Documented By: MANNY Methylprednisolone Sodium Succinate (Methylprednisolone Sod Succ 125 Mg/2 Ml Vial) 40 mg IVPUSH DAILY [facility] Last Admin: 09/21/23 09:11 Dose: Not Given Documented By: ROMMEL Non-Admin Reason: No Access Omeprazole (Omeprazole 20 Mg Capsule.Dr) 20 mg PO DAILY@0630 [facility] Last Admin: 09/21/23 06:00 Dose: 20 mg Documented By: MANNY Ondansetron HCl (Ondansetron Hcl 4 Mg/2 Ml Vial) 4 mg IVPUSH Q8H PRN PRN Reason: Nausea and Vomiting Last Admin: 09/04/23 04:15 Dose: 4 mg Documented By: MADISON Potassium Phos/Sodium Phos (Sodium,Potassium Phosphates Powd.Pack) 1 packet PO BID [facility] Last Admin: 09/21/23 09:07 Dose: 1 packet Documented By: ROMMEL Sodium Chloride (0.9 % Sodium Chloride Flush 3 Ml Syringe) 3 ml IVFLUSH QSHIFT [facility] Last Admin: 09/21/23 14:37 Dose: Not Given Documented By: ROMMEL Non-Admin Reason: No Access Zinc Sulfate (Zinc Sulfate 220 Mg Capsule) 220 mg PO BID [facility] Last Admin: 09/21/23 09:07 Dose: 220 mg Documented By: ROMMEL Labs 09/15/23 07:01 09/15/23 07:01 Assessment and Plan (1) Acute respiratory failure with hypoxia: Status: Acute (2) Sepsis due to COVID-19: Status: Acute Plan Day17 58yo M with asthma, recently diagnosed with Covid-19 08/26/23 admitted with hypoxia 1.Acute hypoxemic respiratory failure possible sec acute asthma exacerbation, and viral sepsis due to severe Covid-19 infection Responded well to therapies. Continues to improve. Now with no O2 requirement Will likely DC in a.m. Seen by Physical therapy deemed appropriate for home with services Require ongoing hospitalization until therapies are set up for home services Quality Stroke Does the patient have a stroke diagnosis?: No VTE Prior VTE?: No VTE Risk Level:: Medical - moderate - high VTE Device Contraindication: N/A - Device Ordered VTE Drug Contraindication: N/A - Med Ordered
[2023-09-21] MEDS: Melatonin 3 MG TABLET 6 MG PO (23:44)
[2023-09-22 03:23] VITALS: BP 131/82; PULSE 93; RESP 20; TEMP 36.9; O2SAT 95
[2023-09-22] MEDS: Omeprazole 20 MG CAPSULE.DR PO (05:57)
[2023-09-22 07:25] VITALS: BP 127/67; PULSE 92; RESP 20; TEMP 36.3; O2SAT 93
[2023-09-22] MEDS: Zinc Sulfate 220 MG CAPSULE PO (09:13)
[2023-09-22] MEDS: Sodium,Potassium Phosphates POWD.PACK 1 PACKET PO (09:13)
[2023-09-22] MEDS: Loratadine 10 MG TABLET PO (09:13)
[2023-09-22] MEDS: Benzonatate 100 MG CAPSULE 200 MG PO (09:13)
[2023-09-22] MEDS: Acetaminophen 325 MG TABLET 650 MG PO (09:13)
[2023-09-22] MEDS: guaiFENesin LA 600 MG TAB.ER.12H PO (09:13)
[2023-09-22] MEDS: Ascorbic Acid 500 MG TABLET PO (09:13)
--- NOTE | 2023-09-22 10:26 | MHC.CM.PN ---
Addendum entered by Екатерина Ty RN 09/22/23 13:27: PER RESPIRATORY PT TO BE SET UP W/[facility] FOR HOME O2 2L NC W/ACTIVITY Original Note: ANTIC PT TO BE MEDICALLY CLEARED FOR DC HOME PENDING HOME O2 EVAL, [facility] UPDATED VIA [facility], FAMILY FOR TRANSPORT
[2023-09-22 11:13] VITALS: BP 116/72; PULSE 96; RESP 20; TEMP 36.8; O2SAT 98
[2023-09-22 12:43] VITALS: PULSE 109; PULSE 115; PULSE 120; O2SAT 88; O2SAT 92; O2SAT 95
--- NOTE | 2023-09-22 13:11 | W.MHC.F2F ---
Service Date Service Date: 09/22/23 Encounter Date of encounter: 09/22/23 Encounter: Acute hospitalization Reasons for Services Signs and symptoms assessed: Patient with COVID-19 infection requires monitoring of oxygen saturation to document effectiveness of home O2 Reason for assisted: medication management and other (Monitoring of home oxygen saturation in response therapies) Homebound: Leaving the home is medically contraindicated at this time without the asist of a device and/or another person due th the listed conditions above and below. Reason homebound: shortness of breath with minimal effort Certification: Based on the above findings, I certify that this patient is confined to the home and needs intermittent assisted care, physical therapy and/or speech therapy, or continues to need occupational therapy. The patient is under my care, and I have initiated the establishment of the plan of care. The patient will be followed by a physician who will periodically review the plan of care. Time Spent With Patient Time: Total time managing care of this patient today ____ minutes.
--- NOTE | 2023-09-22 13:12 | PM.DS ---
DS: Providers Provider Date of Service: 09/22/23 Date of admission: 09/02/23 02:44 Date of discharge: 09/22/23 Primary care physician: Brittani Bender MD Consults: 09/04/23 07:09 Consult to Infectious Diseases Routine Consulting Provider: [facility] Infectious Disease Reason for consultation: covid /hypoxia Has provider been notified: No DS: Diagnosis Discharge Diagnosis (1) Acute respiratory failure with hypoxia: Status: Acute (2) Sepsis due to COVID-19: Status: Acute DS: Summary Hospital Course Hospital Course: 58 year old obese (BMI 35.9) white male with underlying medical history of mild asthma and recent diagnosis of COVID-19 virus infection (he is vaccinated) presents to the emergency room complaining of worsening productive cough, chest pain, fevers, chills and shortness of breath that is worse with exertion. He was diagnosed with COVID-19 infection about a week ago at the onset of his symptoms and saw his PCP who prescribed 5 days of steroids that he completed with transient improvement in his condition. He was seen in the emergency room last night and was treated with steroids and albuterol updrafts with improvement in his condition and so was discharged home from the ER. However, his symptoms recurred today hence his decision to return for treatment. Initial work up in the ER tonight was notable for a very high WBC count at 21.7 (from 14.6 last night) and also a high CRP at 27. He has a normal procalcitonin at 0.39. HE was started on steroids, updrafts and antibiotics and admission was then requested for continued care. Hospital Course It was admitted to telemetry and kept on COVID precautions. He was seen in consultation by Infectious Disease who felt his duration of COVID was too long for remdesivir. He was maintained on IV steroids and required high-flow oxygen. His response to therapy was slow but progressive. At this point in time he is medically acceptable for home with home O2. He will be discharged on a prednisone taper and will follow-up with his PCP next available appointment Time Attestation Discharge coordination time: Greater than 30 minutes Quality: Safe Use of Opioids Does Pt have an Active Cancer Diagnosis on the Problem List?: No Quality: Stroke Does the patient have a stroke diagnosis?: No Physical Exam Vital Signs: Vital Signs: Last Vital Signs Temp 98.2 F 09/22/23 11:13 Pulse 96 09/22/23 11:13 Resp 20 09/22/23 11:13 BP 116/72 09/22/23 11:13 Pulse Ox 98 09/22/23 11:13 O2 Del Method Nasal Cannula 09/22/23 11:13 O2 Flow Rate 2 09/22/23 11:13 FiO2 35 09/14/23 04:00 BMI result Body Mass Index 39.2 Const: Other: Awake alert no acute distress Resp: Other: Clear to auscultation bilaterally no rales rhonchi wheezes Cardio: Other: No S4; positive S1-S2; no S3 murmurs rubs or gallops GI: Other: Soft nontender nondistended normoactive bowel sounds Extrem: Other: No edema bilaterally Discharge Plan Discharge Anticipated Discharge Date/Time: 09/22/23 13:07 Patient Disposition: Home Health Service Discharge Diagnosis: Asthma exacerbation secondary to COVID-19 infection Referrals: Barbara MCMANUS [Outside] - 1 Day (HOME PHYSICAL THERAPY) Brittani Bender MD [Primary Care Provider] - 1 Week Discharge Medications: New prednisone 10 mg tablet See Rx Instructions .Route .COMPLEX Qty: 45 0RF Rx Instructions: 10 mg orally; 5 tabs p.o. daily x3 days; 4 tabs p.o. daily x3 days; 3 tabs daily x3 days; 2 tabs daily x3 days; 1 tab daily x3 days Continued albuterol 90 mcg/actuation Aerosol 2 mcg INHALATION Q4H PRN (Reason: Shortness Of Breath Or Wheezing) Discharge Orders: Discharge Order (Routine); Ordered 09/22/23 Ordered By: Talon Marie Diet: Advance to usual diet Activity on Discharge: As tolerated Stand Alone Forms: Patient Portal Discharge page Care Plan Goals: Resume all medicines as taken before hospital. Prednisone taper has been added to your regimen. Complete as ordered Health Concerns: You have qualified for home oxygen. It will be delivered to your house. [facility] will visit to assess your need for the oxygen and I ongoing basis Plan of Treatment: Follow-up with her PCP next available appointment Assessment: See discharge summary
== END 2023-09-22 15:50 | disposition home health service (06) | DRG 720 ==
LOC: HO.ED 09-02 01:36 → HO.EDOVER 09-02 02:54 → HO.IMC 09-02 05:44
PROVIDERS: Family Medicine; Hospitalist; Internal Medicine; Admitting Provider Internal Medicine; Emergency Provider Emergency Medicine; PCP Internal Medicine; Visit Provider Hospitalist
DX: A41.89 Other specified sepsis (principal); J96.01 Acute respiratory failure with hypoxia; U07.1 COVID-19; J12.82 Pneumonia due to coronavirus disease 2019; J45.21 Mild intermittent asthma with (acute) exacerbation; E66.9 Obesity, unspecified; Z68.35 Body mass index [BMI] 35.0-35.9, adult; Z87.891 Personal history of nicotine dependence
CPT/HCPCS: 36415; 36600; 71045; 71275; 80048; 80053; 80076; 80202; 81001; 82803; 82947; 83605; 83735; 83880; 84100; 84145; 84484; 85025; 85027; 85379; 85610; 86140; 87040; 87147; 87205; 87502; 87635; 87640; 87641; 93005; 93306; 97116; 97161; 99285; C1758; J0456; J0696; J0737; J1100; J1650; J1940; J2060; J2270; J2405; J2543; J2920; J2930; J3370; J3371; Q9957; Q9967

== ENCOUNTER → 2023-09-01 23:15 | Outpatient (BNV) | payer BC, SELFPAY | PROVIDERS: Admitting Provider Internal Medicine; Emergency Provider Emergency Medicine; Visit Provider Internal Medicine Cardiovascular Disease | DX: R00.0 Tachycardia, unspecified (principal) | CPT/HCPCS: 93010 ==

== ENCOUNTER 2023-09-02 02:44 | Outpatient (BNV) | payer BC, SELFPAY | END 2023-09-05 07:00 | PROVIDERS: Admitting Provider Internal Medicine; Emergency Provider Emergency Medicine; PCP Internal Medicine; Visit Provider Internal Medicine Cardiovascular Disease | DX: R06.02 Shortness of breath (principal) | CPT/HCPCS: 93306 ==

== ENCOUNTER → 2023-09-02 02:44 | Outpatient (BNV) | payer BC, SELFPAY | PROVIDERS: Admitting Provider Internal Medicine; Emergency Provider Emergency Medicine; Visit Provider Internal Medicine | DX: U07.1 COVID-19 (principal); J12.82 Pneumonia due to coronavirus disease 2019; A41.89 Other specified sepsis; J96.01 Acute respiratory failure with hypoxia; J45.901 Unspecified asthma with (acute) exacerbation; E66.9 Obesity, unspecified; Z68.35 Body mass index [BMI] 35.0-35.9, adult | CPT/HCPCS: 99223; 99231; 99232; 99233; 99239; 99499; G0180 ==

== ENCOUNTER → 2023-09-02 02:44 | Outpatient (BNV) | payer BC, SELFPAY | PROVIDERS: Admitting Provider Internal Medicine; Emergency Provider Emergency Medicine; PCP Internal Medicine; Visit Provider Internal Medicine | DX: R78.81 Bacteremia (principal); J45.901 Unspecified asthma with (acute) exacerbation; U07.1 COVID-19; A41.89 Other specified sepsis; J12.9 Viral pneumonia, unspecified | CPT/HCPCS: 99222; 99232 ==